=== PATIENT | male | born 1985 | race Caucasian/White ===

== ENCOUNTER 2017-01-07 21:04 | Emergency (ER) | payer SELFPAY ==
[~2017-01-07] VITALS: Ht 177.8 cm; Wt 85.0 kg
[~2017-01-07 21:04] MED LIST: IBUP-238 PO; LORT5TAB PO; Z.0.NO CURRENT MEDS
[2017-01-07 21:06] VITALS: BP 158/104; PULSE 98; RESP 15; TEMP 99; O2SAT 98
--- NOTE | 2017-01-07 21:48 | PD ---
Physical Exam Time Seen by Provider: 21:45 Narrative 31 y/o male here for evaluation of nausea, vomiting for 2 days. He is also complaining about decreased density of hair on the right lower leg which he just happened to notice as well. Vital signs reviewed. Seen at triage desk. Awaiting bed placement. Data Data Last Documented VS Vital Signs Date Time Temp Pulse Resp B/P Pulse Ox O2 Delivery O2 Flow Rate FiO2 01/07/17 21:06 99.0 98 15 158/104 98 Room Air [facility] Medical Record Reviewed: Yes Supervised Visit with BRINDA: Fredrick Rodriguez Jan 07, 2017 21:47
[2017-01-07] MEDS ORDERED: REGL10TA5 PO (22:11)
--- NOTE | 2017-01-07 22:12 | PD ---
HPI Chief Complaint: GI Complaint Time Seen by Provider: 21:54 Travel History International Travel<30 days: No Contact w/Intl Traveler<30days: No Traveled to known affect area: No History of Present Illness HPI 41-year-old male reports nausea and vomiting every day for several months. Any oral intake tends to cause vomiting. He reports weight loss. He also complains of a right inguinal hernia which has gradually worsened over the last few months. It is reducible. No fever. Pt states he drinks alcohol three times a week. Today prior to ER arrival he drank multiple shots of alcohol. PFSH Past Medical History Diminished Hearing: No Inguinal Hernia: Yes Tetanus Vaccination: > 5 Years Influenza Vaccination: No Past Surgical History Surgical History: No Previous Surgery Social History Alcohol Use: Yes (SOCIAL A LOT) Tobacco Use: No Substance Use: No Allergies-Medications (Allergen,Severity, Reaction): Coded Allergies: Clindamycin (Verified Allergy, Severe, RASH, 01/07/17) Sulfa (Verified Allergy, Severe, Rash, 01/07/17) Reported Meds & Prescriptions Reported Meds & Active Scripts Active Reglan (Metoclopramide HCl) 10 Mg Tab 10 Mg PO TIDAC PRN Review of Systems Except as stated in HPI: all other systems reviewed are Neg Physical Exam Narrative GENERAL: 31 yo M, WNWD, NAD SKIN: Warm and dry. HEAD: Atraumatic. Normocephalic. EYES: Pupils equal and round. No scleral icterus. No injection or drainage. ENT: No nasal bleeding or discharge. Mucous membranes pink and moist. NECK: Trachea midline. No JVD. CARDIOVASCULAR: Regular rate and rhythm. RESPIRATORY: No accessory muscle use. Clear to auscultation. Breath sounds equal bilaterally. GASTROINTESTINAL: Abdomen soft, non-tender, nondistended. Hepatic and splenic margins not palpable. MUSCULOSKELETAL: Extremities without clubbing, cyanosis, or edema. No obvious deformities. NEUROLOGICAL: Awake and alert. No obvious cranial nerve deficits. Motor grossly within normal limits. Five out of 5 muscle strength in the arms and legs. Normal speech. PSYCHIATRIC: Appropriate mood and affect; insight and judgment normal. Data Data Last Documented VS Vital Signs Date Time Temp Pulse Resp B/P Pulse Ox O2 Delivery O2 Flow Rate FiO2 01/07/17 22:03 16 01/07/17 21:06 99.0 98 158/104 98 Room Air VS reviewed MDM Medical Decision Making Medical Screen Exam Complete: Yes Emergency Medical Condition: Yes Differential Diagnosis Constipation, Gastritis, Acute Cholecystitis, Biliary Colic, Pancreatitis, FLORES , Hepatitis, Bowel Obstruction, Cystitis, Mesenteric Ischemia, AAA, Appendicitis , Renal Stone/Hydronephrosis, GERD, perforated viscous Narrative Course R inguinal hernia is reducible. Follow up instructions reviewed. Reglan script. Pt advised to avoid drinking alcohol and demonstrates understanding and agreement to stop drinking. Diagnosis Primary Impression: Vomiting Qualified Code: R11.2 - Non-intractable vomiting with nausea, unspecified vomiting type Additional Impression: Inguinal hernia Qualified Code: K40.90 - Unilateral inguinal hernia without obstruction or gangrene, recurrence not specified Referrals: Patient Assistance Program 1 day Additional Instructions: You have a choice when it comes to health care, and we are glad that you chose [facility] Hopefully, we have met your expectations on today's visit. You are welcome to return to [facility] at any time, as we are committed to meeting the health care needs of our community. Med/Other Pt SpecificInfo: Prescription(s) given Scripts Metoclopramide (Reglan)10 Mg Tab10 Mg PO TIDAC PRN (NAUSEA OR VOMITING) #30 TAB Ref 0 Prov:Rj Harden MD 01/07/17 Disposition: 01 DISCHARGE HOME Condition: Stable Rj Harden MD Jan 07, 2017 22:12
== END 2017-01-07 22:21 | disposition home or self-care (01) ==
LOC: NEPD 21:04
DX: R11.2 Nausea with vomiting, unspecified (principal); K40.90 Unilateral inguinal hernia, without obstruction or gangrene, not specified as recurrent; Z79.899 Other long term (current) drug therapy; Z88.2 Allergy status to sulfonamides; Z88.8 Allergy status to other drugs, medicaments and biological substances
CPT/HCPCS: 99283

== ENCOUNTER 2017-06-03 21:52 | Emergency (ER) | payer MEDICAID ==
[~2017-06-03 21:52] MED LIST changes: -IBUP-238 PO; -LORT5TAB PO; +REGL10TA5 PO; -Z.0.NO CURRENT MEDS
[2017-06-03 22:01] VITALS: BP 135/85; PULSE 96; RESP 20; TEMP 98.7; O2SAT 97
--- NOTE | 2017-06-03 22:43 | PD ---
HPI Chief Complaint: GI Complaint Time Seen by Provider: 22:07 Travel History International Travel<30 days: No Contact w/Intl Traveler<30days: No Traveled to known affect area: No History of Present Illness HPI Patient is a 32-year-old male whose kid has been vomiting all day. Apparently all went to [facility] yesterday and everyone who is at that birthday democrat ended up vomiting patient started vomiting early this morning had to call in sick to work. He took his child to the doctor who gave the child a medication which has helped the child stopped vomiting. He was told the child had no emergency. Patient now is in the ER complaining of nausea vomiting multiple episodes she was so much retching that his stomach was hurting muscles were hurting. In the ER he denies any actual abdomen pain at this time patient has no surgical past medical history he has only a hernia which she is scheduled to eventually have repaired. He did not take anything to alleviate the symptoms of vomiting. He has not seen another doctor. PFSH Past Medical History Diminished Hearing: No Inguinal Hernia: Yes Tetanus Vaccination: > 5 Years Influenza Vaccination: No Past Surgical History Other Surgery: Yes (left knee, right wrist ) Social History Alcohol Use: No Tobacco Use: No Substance Use: No Allergies-Medications (Allergen,Severity, Reaction): Coded Allergies: Sulfa (Sulfonamide Antibiotics) (Unverified Allergy, Severe, Rash, ) clindamycin (Unverified Allergy, Severe, RASH, 06/03/17) Reported Meds & Prescriptions Reported Meds & Active Scripts Active Zofran Odt (Ondansetron Odt) 4 Mg Tab 4 Mg SL Q6HR PRN Review of Systems Except as stated in HPI: all other systems reviewed are Neg Gastrointestinal: Positive: Nausea, Vomiting Physical Exam Narrative GENERAL: non toxic no active vomiting SKIN: Warm and dry. HEAD: Atraumatic. Normocephalic. EYES: Pupils equal and round. No scleral icterus. No injection or drainage. ENT: No nasal bleeding or discharge. Mucous membranes pink and moist. NECK: Trachea midline. No JVD. CARDIOVASCULAR: Regular rate and rhythm. RESPIRATORY: No accessory muscle use. Clear to auscultation. Breath sounds equal bilaterally. GASTROINTESTINAL: Abdomen soft, non-tender, nondistended. Hepatic and splenic margins not palpable. MUSCULOSKELETAL: Extremities without clubbing, cyanosis, or edema. No obvious deformities. NEUROLOGICAL: Awake and alert. No obvious cranial nerve deficits. Motor grossly within normal limits. Five out of 5 muscle strength in the arms and legs. Normal speech. PSYCHIATRIC: Appropriate mood and affect; insight and judgment normal. Data Data Last Documented VS Vital Signs Date Time Temp Pulse Resp B/P (MAP) Pulse Ox O2 Delivery O2 Flow Rate FiO2 06/03/17 23:34 06/03/17 23:34 98.7 85 16 98 Room Air Orders Orders Ondansetron Odt (Zofran Odt) (06/03/17 22:45) Ed Discharge Order (06/03/17 23:25) [facility] Medical Decision Making Medical Screen Exam Complete: Yes Emergency Medical Condition: Yes Differential Diagnosis viral gastroenteritis vs food bourne toxin vs SBO other Narrative Course Zofran ODT and tolerate PO Rx for Zofran close outpt follow up Diagnosis Primary Impression: Gastroenteritis Patient Instructions: Gastroenteritis (ED), General Instructions Scripts Ondansetron Odt (Zofran Odt) 4 Mg Tab 4 MG SL Q6HR Y for Nausea/Vomiting, #15 TAB 0 Refills Prov: Dandre Connell MD 06/03/17 Disposition: 01 DISCHARGE HOME Condition: Critical Dandre Connell MD Jun 03, 2017 22:43
[2017-06-03] MEDS ORDERED: ONDANSETRON ODT 4 MG TAB PO ONE (22:45)
[2017-06-03] MEDS ORDERED: ZOFR4TAB3 SL (23:00)
[2017-06-03 23:34] VITALS: BP 134/75; PULSE 85; RESP 16; TEMP 98.7; O2SAT 98
== END 2017-06-03 23:36 | disposition home or self-care (01) ==
LOC: PHED 21:52
DX: K52.9 Noninfective gastroenteritis and colitis, unspecified (principal)
CPT/HCPCS: 99283

== ENCOUNTER 2017-06-23 04:42 | Emergency (ER) | payer MEDICAID ==
[~2017-06-23] VITALS: Ht 180.3 cm; Wt 91.0 kg
[~2017-06-23 04:42] MED LIST changes: -REGL10TA5 PO; +ZOFR4TAB3 SL
[2017-06-23 04:44] VITALS: BP 152/107; PULSE 98; RESP 16; TEMP 98.1; O2SAT 98
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
[2017-06-23] MEDS ORDERED: AUGM875T3 PO (08:49)
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
[2017-06-23] MEDS ORDERED: NORC5TAB PO (08:51)
== END 2017-06-23 09:29 | disposition home or self-care (01) ==
LOC: NEPK 04:42
DX: S02.609A Fracture of mandible, unspecified, initial encounter for closed fracture (principal); Y33.XXXA Other specified events, undetermined intent, initial encounter
CPT/HCPCS: 70486; 99284

== ENCOUNTER 2017-06-26 16:57 | Emergency (ER) | payer MEDICAID ==
[~2017-06-26] VITALS: Ht 180.3 cm; Wt 90.0 kg
[~2017-06-26 16:57] MED LIST changes: +AUGM875T3 PO; +NORC5TAB PO; -ZOFR4TAB3 SL
[2017-06-26 16:59] VITALS: BP 154/109; PULSE 111; RESP 16; TEMP 99.1; O2SAT 96
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
[2017-06-26] MEDS ORDERED: KETOROLAC TROMETHAMINE 30 MG/ML (IVP) VIAL IV PUSH ONE (17:45)
[2017-06-26] MEDS ORDERED: SODIUM CHLOR 0.9% 1000 ML INJ 1,000 ML IV ONE (17:45)
[2017-06-26 18:11] LABS: HEMATOCRIT 48.8 % (39.0-51.0); HEMOGLOBIN 17.7 GM/DL (13.0-17.0); MEAN CELL VOLUME 90.5 FL (80.0-100.0); MEAN CORPUSCULAR HEMOGLOBIN 32.8 PG (27.0-34.0); MEAN PLATELET VOLUME 8.1 FL (7.0-11.0); PLATELET COUNT 170 TH/MM3 (150-450); RED BLOOD COUNT 5.39 MIL/MM3 (4.50-5.90); RED CELL DISTRIBUTION WIDTH 12.3 % (11.6-17.2); WHITE BLOOD COUNT 6.5 TH/MM3 (4.0-11.0)
[2017-06-26 18:20] LABS: MEAN CORPUSCULAR HGB CONC 36.2 % (32.0-36.0)
[2017-06-26 18:36] LABS: BICARBONATE 31.6 MEQ/L (21.0-32.0); CALCIUM 9.2 MG/DL (8.5-10.1); CREATININE 1.12 MG/DL (0.60-1.30)
[2017-06-26 19:09] LABS: BASOPHILS 1 % (0-2); LYMPHOCYTES 24 % (9-44); MONOCYTES 5 % (0-8); NEUTROPHIL # MANUAL DIFF 4.4 TH/MM3 (1.8-7.7); POLYS (SEG NEUTROPHILS) 68 % (16-70)
[2017-06-26] MEDS ORDERED: IBUP100S11 PO (19:25)
[2017-06-26] MEDS ORDERED: HYDR1SOL3 PO (19:25)
[2017-06-26] MEDS ORDERED: AUGM250S2 PO (19:25)
== END 2017-06-26 19:50 | disposition home or self-care (01) ==
LOC: NEPC 16:57
DX: S02.609D Fracture of mandible, unspecified, subsequent encounter for fracture with routine healing (principal); Z88.2 Allergy status to sulfonamides; Z88.0 Allergy status to penicillin; Z79.1 Long term (current) use of non-steroidal anti-inflammatories (NSAID); Z79.891 Long term (current) use of opiate analgesic; X58.XXXD Exposure to other specified factors, subsequent encounter
CPT/HCPCS: 80048; 85007; 85027; 96361; 96374; 99284; J1885; J7030

== ENCOUNTER 2017-07-22 10:18 | Emergency (ER) | payer MEDICAID ==
[~2017-07-22] VITALS: Ht 177.8 cm; Wt 70.0 kg
[~2017-07-22 10:18] MED LIST changes: +AUGM250S2 PO; +HYDR1SOL3 PO; +IBUP100S11 PO
[2017-07-22 10:21] VITALS: BP 152/98; PULSE 113; RESP 16; TEMP 98.5; O2SAT 95
[2017-07-22] MEDS ORDERED: ZOFR4TAB PO (11:08)
--- NOTE | 2017-07-22 11:09 | PD ---
HPI Chief Complaint: Complaint Time Seen by Provider: 10:27 Travel History International Travel<30 days: No Contact w/Intl Traveler<30days: No Traveled to known affect area: No History of Present Illness HPI This is a 32-year-old male came here for lower abdominal pain. He states that he has a hernia that has been there for 1 year. He has been complaining of nausea and vomiting periodically for the last few weeks. He has not noticed the hernia getting bigger or red. Patient has lost a few pounds over the last year due to her nausea and vomiting. He says that he tried to see surgeon for the operation but he was unable to get an appointment due to insurance issues. Lower abdominal pain is 3 out of 10, comes and goes, no radiation, no fever no chills, no night sweats, associated with nausea and vomiting that comes and goes as well. Patient is currently not working but he used to workout but he stopped due to the hernia pain. PFSH Past Medical History Diminished Hearing: No Inguinal Hernia: Yes Tetanus Vaccination: > 5 Years Influenza Vaccination: No Past Surgical History Other Surgery: Yes Social History Alcohol Use: Yes (occasionally) Tobacco Use: No Substance Use: No Allergies-Medications (Allergen,Severity, Reaction): Coded Allergies: Sulfa (Sulfonamide Antibiotics) (Unverified Allergy, Severe, Rash, 07/22/17) clindamycin (Unverified Allergy, Severe, RASH, 07/22/17) Reported Meds & Prescriptions Reported Meds & Active Scripts Active Zofran (Ondansetron HCl) 4 Mg Tab 4 Mg PO Q12HR PRN 5 Days Review of Systems General / Constitutional: Positive: Weight Loss Eyes: No: Visual changes Gastrointestinal: Positive: Nausea, Vomiting Physical Exam Narrative GENERAL: No acute distress. SKIN: Focused skin assessment warm/dry. HEAD: Atraumatic. Normocephalic. EYES: Pupils equal and round. No scleral icterus. No injection or drainage. ENT: No nasal bleeding or discharge. Mucous membranes pink and moist. NECK: Trachea midline. No JVD. CARDIOVASCULAR: Regular rate and rhythm. No murmur appreciated. RESPIRATORY: No accessory muscle use. Clear to auscultation. Breath sounds equal bilaterally. GASTROINTESTINAL: Right inguinal hernia, no local tenderness, reducible, no redness, no testicular or redness, Abdomen soft, non-tender, nondistended. MUSCULOSKELETAL: No obvious deformities. No clubbing. No cyanosis. No edema. NEUROLOGICAL: Awake and alert. No obvious cranial nerve deficits. Motor grossly within normal limits. Normal speech. PSYCHIATRIC: Appropriate mood and affect; insight and judgment normal. Data Data Last Documented VS Vital Signs Date Time Temp Pulse Resp B/P (MAP) Pulse Ox O2 Delivery O2 Flow Rate FiO2 07/22/17 10:21 98.5 113 16 152/98 (116) 95 Orders Orders Ed Discharge Order (07/22/17 11:14) MDM Medical Decision Making Medical Screen Exam Complete: Yes Emergency Medical Condition: Yes Differential Diagnosis Reducible Inguinal hernia. Enlarged Lymph nodes. Gastroenteritis. Narrative Course Pleasant 32-year-old male with history of right inguinal hernia for the last year. He has been trying to get an appointment with a surgeon to take care of it but was unsuccessful to do so. Hernia is reducible no signs of incarceration. He will eventually need elective surgery because of hernia affecting his quality of life. Explained to him that he needs to do outpatient appointment with surgeon and I given the phone number and the address of [facility] for Medicaid. Patient is stable to be discharged and to follow- up with primary care and surgeon. I explained to him to look for signs and symptoms of incarceration and to return to the ER immediately if those symptoms ever occur. Diagnosis Primary Impression: Inguinal hernia Qualified Codes: K40.90 - Unilateral inguinal hernia, without obstruction or gangrene, not specified as recurrent Additional Impression: Vomiting Qualified Codes: R11.2 - Nausea with vomiting, unspecified Referrals: [facility] Patient Instructions: General Instructions, Inguinal Hernia (DC), Inguinal Hernia (ED) Departure Forms: Tests/Procedures, Work Release Enter return to work date: Jul 23, 2017 Special Instructions: please excuse from work on 07/22/17 Additional Instructions: Return to ER if any redness or pain or swelling of the hernia. Med/Other Pt SpecificInfo: Prescription(s) given Scripts Ondansetron (Zofran) 4 Mg Tab 4 MG PO Q12HR Y for NAUSEA OR VOMITING for 5 Days, TAB 10 Refills Prov: Louie Saba MD 07/22/17 Disposition: 01 DISCHARGE HOME Condition: Stable Louie Saba MD Jul 22, 2017 11:09
== END 2017-07-22 11:35 | disposition home or self-care (01) ==
LOC: NEPD 10:18
DX: K40.90 Unilateral inguinal hernia, without obstruction or gangrene, not specified as recurrent (principal); R11.2 Nausea with vomiting, unspecified
CPT/HCPCS: 99283

== ENCOUNTER 2018-03-14 13:30 | Inpatient (IN) ==
[2018-03-14] MEDS ORDERED: Sod Chloride 0.9% Inj 1,000 ML IV.SIG ONE (15:41)
[2018-03-14] MEDS ORDERED: Morphine Inj 4 MG/ML Vial IV.PUSH ONE (15:41)
--- NOTE | 2018-03-14 15:47 | ED ---
HPI General Chief Complaint: Abdominal Pain Stated Complaint: abd pain Time Seen by Provider: 03/14/18 15:41 Source: patient Mode of arrival: ambulatory Limitations: no limitations History of Present Illness HPI narrative: 32-year-old male patient with history of herniorrhaphy on the right side, presents to the ER today for 2 days history of increased abdominal pain, currently a 7 out of 10, nausea, feeling like his abdomen is bloated. He denies any diarrhea, fevers, or other symptoms. Related Data Home Medications Medication Instructions Recorded Confirmed No Known Home Medications 03/14/18 03/14/18 Allergies Allergy/AdvReac Type Severity Reaction Status Date / Time clindamycin Allergy Severe RASH Unverified 07/22/17 10:41 Sulfa (Sulfonamide Allergy Severe Rash Unverified 07/22/17 10:41 Antibiotics) Review of Systems ROS: all other systems reviewed are negative PMFSH History History Provided By: Patient Surgical History Surgical History History of herniorrhaphy (Acute) Social History Social History Substance History: No History of Abuse Second Hand Smoke Exposure: No Smoking Status: Former smoker Tobacco Type: Cigarettes How Often Do You Have a Drink Containing Alcohol: Monthly or less Recent Travel in [place] within the Last 8 Weeks: No Recent Out of Country Travel within the Last 8 Weeks: No Exam Narrative Exam Narrative: GENERAL: Well-developed young male patient currently in moderate distress. Awake and oriented x3. SKIN: Focused skin assessment warm/dry. HEAD: Atraumatic. Normocephalic. EYES: Pupils equal and round. No scleral icterus. No injection or drainage. ENT: No nasal bleeding or discharge. Mucous membranes pink and moist. NECK: Trachea midline. No JVD. CARDIOVASCULAR: Regular rate and rhythm. No murmur appreciated. RESPIRATORY: No accessory muscle use. Clear to auscultation. Breath sounds equal bilaterally. GASTROINTESTINAL: Abdomen Is mildly distended, Tender to palpation in the upper abdomen, Without guarding or rebound. Hepatic and splenic margins not palpable. MUSCULOSKELETAL: No obvious deformities. No clubbing. No cyanosis. No edema. NEUROLOGICAL: Awake and alert. No obvious cranial nerve deficits. Motor grossly within normal limits. Normal speech. PSYCHIATRIC: Appropriate mood and affect; insight and judgment normal. Course Initial Documented Vital Signs Temperature 98.3 F 03/14/18 13:43 Pulse Rate 111 H 03/14/18 13:43 Respiratory Rate 18 03/14/18 13:43 Blood Pressure 143/89 H 03/14/18 13:43 Pulse Oximetry 98 03/14/18 13:43 Last Documented Vital Signs Temperature 98.3 F 03/14/18 13:43 Pulse Rate 71 03/14/18 17:59 Respiratory Rate 18 03/14/18 17:59 Blood Pressure 120/72 03/14/18 17:59 Pulse Oximetry 100 03/14/18 17:59 Medical Decision Making MDM Narrative Medical decision making narrative: Labs show a white count of 25. CAT scan is showing acute appendicitis. Case is discussed with Dr. Dave for admission. He states that he will come to see the patient, wants me to get the patient started on Zosyn. Medical Screen Exam Complete: Yes Emergency Medical Condition: Yes Differential Diagnosis Differential Diagnosis: Obstruction versus gastroenteritis versus cholecystitis versus other acute intra-abdominal processes Lab Data Lab results reviewed: Yes I reviewed the patient's lab results. Result diagrams: 03/14/18 13:50 03/14/18 13:50 Lab Results 03/14/18 03/14/18 03/14/18 Range/Units 13:50 13:50 18:00 WBC 24.5 H (4.0-11.0) th/mm3 RBC 5.13 (4.50-5.90) mil/mm3 Hgb 16.2 (13.0-17.0) gm/dL Hct 47.3 (39.0-51.0) % MCV 92.0 (80.0-100.0) fL MCH 31.5 (27.0-34.0) pg MCHC 34.2 (32.0-36.0) % RDW 13.2 (11.6-17.2) % Plt Count 234 (150-450) th/mm3 MPV 10.0 (7.0-11.0) fL Neut % (Auto) 91.8 H (16.0-70.0) % Lymph % (Auto) 3.4 L (9.0-44.0) % [place] % (Auto) 4.6 (0.0-8.0) % Eos % (Auto) 0.0 (0.0-4.0) % Baso % (Auto) 0.2 (0.0-2.0) % Neut # (Auto) 22.4 H (1.8-7.7) th/mm3 Lymph # (Auto) 0.8 L (1.0-4.8) th/mm3 [place] # (Auto) 1.1 H (0.0-0.9) th/mm3 Eos # (Auto) 0.0 (0.0-0.4) th/mm3 Baso # (Auto) 0.1 (0.0-0.2) th/mm3 WBC Differential . Differential Comment Auto diff final Sodium 133 L (136-145) meq/L Potassium 4.1 (3.5-5.1) meq/L Chloride 93 L (98-107) meq/L Carbon Dioxide 29.5 (21.0-32.0) meq/L Anion Gap 11 (5-15) meq/L BUN 14 (7-18) mg/dL Creatinine 1.31 H (0.60-1.30) mg/dL Estimated GFR 64 L (>89) mL/min Random Glucose 108 H (74-106) mg/dL Calcium 9.3 (8.5-10.1) mg/dL Total Bilirubin 2.4 H (0.2-1.0) mg/dL AST 61 H (15-37) U/L ALT 110 H (12-78) U/L Alkaline Phosphatase 75 (45-117) U/L Total Protein 8.5 H (6.4-8.2) g/dL Albumin 4.1 (3.4-5.0) g/dL Lipase 65 L (73-393) U/L Urine Color Yellow (Yellw/Straw) Urine Clarity Clear (Clear) Urine pH 6.0 (5.0-8.5) Ur Specific [place] 1.009 (1.002-1.035) Urine Protein Negative (Neg-Trace) mg/dL Urine Glucose (UA) Negative (Negative) mg/dL Urine Ketones Negative (Negative) mg/dL Urine Occult Blood Negative (Negative) Urine Nitrate Negative (Negative) Urine Bilirubin Negative (Negative) Urine Urobilinogen Less than 2 (Less than 2) mg/dL Ur Leukocyte Esterase Negative (Negative) Urine RBC Less than 1 (0-3) /hpf Urine WBC 2 (0-5) /hpf Ur Squamous Epith Cells <1 (0-5) /hpf Urine Bacteria Occasional H (None) /hpf Hyaline Casts 4 (0-3) /lpf Micro UA Comment Culture not ind Ur Microscopic Review Not Reportable Urine Culture Comments Culture not ind Imaging Data Attestation: I personally reviewed and interpreted this imaging study as follows : Radiologist's impression: Abdomen/Pelvis CT 03/14/18 15:41 CONCLUSION: 1. Acute appendicitis without abscess or rupture. 2. Enteritis and colitis, most severely involving the ileum and of concern for underlying Crohn's disease. 3. Enlarged and fatty infiltrated liver. 4. Tiny nonobstructing stone of the left kidney. Discharge Plan Discharge Disposition Patient Disposition: 32 Still Patient Discharge Condition Condition: Stable Discharge Details Anticipated Discharge Date: 03/14/18 Diagnosis: Appendicitis Physicians Team ED Provider: Eliza Forrester Primary Care Provider: Primary Care Toya Harris Rxs /Orders / Referrals /Forms Prescriptions: No Action No Known Home Medications RF: 0 Discharge Interventions Interventions: Vital Signs Last Done: 03/14/18 17:59 Status ED Status: With Doctor
[2018-03-14 16:29] LABS: Baso # (Auto) 0.1 th/mm3 (0.0-0.2); Baso % (Auto) 0.2 % (0.0-2.0); Hematocrit 47.3 % (39.0-51.0); Hemoglobin 16.2 gm/dL (13.0-17.0); Lymph # (Auto) 0.8 th/mm3 (1.0-4.8); Lymph % (Auto) 3.4 % (9.0-44.0); Mean Corpuscular HGB Conc 34.2 % (32.0-36.0); Mean Corpuscular Hemoglobin 31.5 pg (27.0-34.0); Mono # (Auto) 1.1 th/mm3 (0.0-0.9); Mono % (Auto) 4.6 % (0.0-8.0); Neut # (Auto) 22.4 th/mm3 (1.8-7.7); Neut % (Auto) 91.8 % (16.0-70.0); Platelet Count 234 th/mm3 (150-450); Red Blood Count 5.13 mil/mm3 (4.50-5.90); Red Cell Distribution Width 13.2 % (11.6-17.2); White Blood Count 24.5 th/mm3 (4.0-11.0)
[2018-03-14 16:46] LABS: Alanine Aminotransferase 110 U/L (12-78); Albumin 4.1 g/dL (3.4-5.0); Anion Gap 11 meq/L (5-15); Aspartate Aminotransferase 61 U/L (15-37); Blood Urea Nitrogen 14 mg/dL (7-18); Calcium 9.3 mg/dL (8.5-10.1); Carbon Dioxide 29.5 meq/L (21.0-32.0); Chloride 93 meq/L (98-107); Glomerular Filtration Rate 64 mL/min (>89); Glucose,Random 108 mg/dL (74-106); Lipase 65 U/L (73-393); Potassium 4.1 meq/L (3.5-5.1); Sodium 133 meq/L (136-145)
[2018-03-14 16:48] LABS: Alkaline Phosphatase 75 U/L (45-117); Total Protein 8.5 g/dL (6.4-8.2)
[2018-03-14 18:36] LABS: Bacteria,Urine Occasional /hpf; Bilirubin,Urine Negative (Negative); Clarity,Urine Clear (Clear); Color,Urine Yellow (Yellw/Straw); Glucose,Urine (UA) Negative (Negative); Hyaline Casts,Urine 4 /lpf (0-3); Leukocyte Esterase,Urine Negative (Negative); Nitrite,Urine Negative (Negative); Specific Gravity,Urine 1.009 (1.002-1.035); Squamous Epithelial Cell,Urine <1 /hpf (0-5)
--- NOTE | 2018-03-14 18:44 | CT ---
EXAM DATE: 03/14/2018 5:33 PM EDT AGE/SEX: 32 years / Male INDICATIONS: Nausea, vomiting and right lower abdomen pain for two days. CLINICAL DATA: This is the patient's initial encounter. Patient reports that signs and symptoms have been present for 2 days and indicates a pain score of 9/10. MEDICAL/SURGICAL HISTORY: None. None. ORAL CONTRAST: No oral contrast ingested. RADIATION DOSE: 15.47 CTDI (mGy) COMPARISON: No prior exams available for comparison. TECHNIQUE: Multiple contiguous axial images were obtained through the abdomen and pelvis following b olus infusion of 97 ml Omnipaque 350 (iohexol) nonionic water-soluble contrast as a single exam dos e. No oral contrast ingested. Using automated exposure control and adjustment of the mA and/or kV ac cording to patient size, radiation dose was kept as low as reasonably achievable to obtain optimal di agnostic quality images. DICOM format image data is available electronically for review and comparis on. FINDINGS: Thick walled appendix with mucosal enhancement and periappendiceal fat stranding noted. There is part ly calcific debris in the cecum near the base of the appendix. Extremely indurated and narrow small bowel present, especially the ileum and including the terminal i leum. These findings are beyond those expected secondary to acute appendicitis and underlying Crohn's disease is suspected. Some colonic involvement is also seen, mostly the sigmoid. Bowel gas pattern i s nonobstructive. No free air or abscess demonstrated. There is small free fluid in the pelvic cavity . Mild bibasilar atelectasis. No acute bony abnormality demonstrated. Liver is mild fatty infiltrated. Spleen, pancreas and adrenal glands are within normal limits. 2 mm n onobstructing stone seen mid zone of the left kidney. CONCLUSION: 1. Acute appendicitis without abscess or rupture. 2. Enteritis and colitis, most severely involving the ileum and of concern for underlying Crohn's di sease. 3. Enlarged and fatty infiltrated liver. 4. Tiny nonobstructing stone of the left kidney. Electronically signed by: Bharat Hernandez MD 03/14/2018 6:43 PM EDT
[2018-03-14] MEDS ORDERED: Piperacil/Tazo 3.375 GM Premix 50 ML IV.SIG ONE (19:00)
[2018-03-14] MEDS ORDERED: Bupivacaine/Epinephrine Inj 0.25% 50 ML Vial ONE (19:42)
[2018-03-14] MEDS ORDERED: Succinylcholine Inj 100 MG/5 ML Syringe IV.PUSH ONE (20:00)
[2018-03-14] MEDS ORDERED: Lidocaine PF 1% Inj 5 ML Syringe OTHER ONE (20:00)
--- NOTE | 2018-03-14 20:17 | P.HP ---
History of Present Illness Primary Care Physician: No Primary Care Physician History of Present Illness: Patient is a 32-year-old male who began to have increased abdominal pain over the last 2 days. He has nausea but no emesis. He denies any change in bowel habits or fevers. - Diagnosis (1) Enteritis (2) Appendicitis Review of Systems All other systems reviewed negative except as stated in HPI PMFSH - History History Provided By: Patient - Medical History Medical History: Medical History (Last Updated 03/14/18 @ 20:09 by Silverio Dave MD) Fracture, mandible - Surgical History Surgical History: Surgical History (Last Reviewed 03/15/18 @ 15:36 by Angela Brown MD) History of herniorrhaphy - Family History Family History: Family History (Last Updated 03/15/18 @ 16:28 by Yfn Amaya MD) Mother Healthy adult Father Diabetes - Tobacco History Second Hand Smoke Exposure: No Tobacco Use In Past 30 Days: No Smoking Status: Former smoker Tobacco Type: Cigarettes - Alcohol History How Often Do You Have a Drink Containing Alcohol: Monthly or less - Substance Use History Substance History: No History of Abuse - Travel History Recent Travel in the [place] Within the Last 8 Weeks: No Recent Travel Out of the Country Within the Last 8 Weeks: No - Immunization History Tetanus Immunization: Unsure Medications and Allergies Active Medications: Active Medications Sodium Chloride (Ns Flush) 2 ml IV.FLUSH PRN PRN PRN Reason: FLUSH AFTER USING IV ACCESS Last Admin: 03/14/18 15:55 Dose: 2 ml Allergies Allergy/AdvReac Type Severity Reaction Status Date / Time clindamycin Allergy Severe RASH Unverified 07/22/17 10:41 Sulfa (Sulfonamide Allergy Severe Rash Unverified 07/22/17 10:41 Antibiotics) Home Medications Medication Instructions Recorded Confirmed Type No Known Home Medications 03/14/18 03/14/18 History Exam Vital signs: Vital Signs 03/14/18 13:43 03/14/18 17:59 03/14/18 19:18 Temperature 98.3 F Pulse Rate 111 H 71 104 H Respiratory Rate 18 18 20 Blood Pressure 143/89 H 120/72 123/58 L Pulse Oximetry 98 100 96 Intake & Output 03/14/18 03/14/18 03/15/18 06:59 18:59 06:59 Intake Total 1000 / 1000 50 / 50 Balance 1000 / 1000 50 / 50 Weight 95.254 kg Intake: IV 1000 / 1000 50 / 50 Zosyn 3.375 GM Premix 50 ML @ 50 / 50 100 mls/hr IV.SIG ONCE ONE Rx#: [id number] NS Inj 1,000 ML @ Wide Open IV. 1000 / 1000 SIG BOLUS ONE Rx#:[id number] - Constitutional mild distress - Routine HEENT Exam Head: Present: normocephalic, atraumatic - Routine Respiratory Exam Present: CTA bilaterally - Routine Cardiovascular Exam Present: RRR - Routine Abdominal Exam Present: soft, tenderness (Right lower quadrant), guarding Results - Labs CBC & Chem 7: 03/18/18 03:55 03/16/18 06:15 Labs: Laboratory Results - last 24 hr 03/14/18 03/14/18 03/14/18 13:50 13:50 18:00 WBC 24.5 H RBC 5.13 Hgb 16.2 Hct 47.3 MCV 92.0 MCH 31.5 MCHC 34.2 RDW 13.2 Plt Count 234 MPV 10.0 Neut % (Auto) 91.8 H Lymph % (Auto) 3.4 L [place] % (Auto) 4.6 Eos % (Auto) 0.0 Baso % (Auto) 0.2 Neut # (Auto) 22.4 H Lymph # (Auto) 0.8 L [place] # (Auto) 1.1 H Eos # (Auto) 0.0 Baso # (Auto) 0.1 WBC Differential . Differential Comment Auto diff final Sodium 133 L Potassium 4.1 Chloride 93 L Carbon Dioxide 29.5 Anion Gap 11 BUN 14 Creatinine 1.31 H Estimated GFR 64 L Random Glucose 108 H Calcium 9.3 Total Bilirubin 2.4 H AST 61 H ALT 110 H Alkaline Phosphatase 75 Total Protein 8.5 H Albumin 4.1 Lipase 65 L Urine Color Yellow Urine Clarity Clear Urine pH 6.0 Ur Specific [place] 1.009 Urine Protein Negative Urine Glucose (UA) Negative Urine Ketones Negative Urine Occult Blood Negative Urine Nitrate Negative Urine Bilirubin Negative Urine Urobilinogen Less than 2 Ur Leukocyte Esterase Negative Urine RBC Less than 1 Urine WBC 2 Ur Squamous Epith Cells <1 Urine Bacteria Occasional H Hyaline Casts 4 Micro UA Comment Culture not ind Ur Microscopic Review Not Reportable Urine Culture Comments Culture not ind - Imaging Impressions Abdomen/Pelvis CT 03/14/18 15:41 CONCLUSION: 1. Acute appendicitis without abscess or rupture. 2. Enteritis and colitis, most severely involving the ileum and of concern for underlying Crohn's disease. 3. Enlarged and fatty infiltrated liver. 4. Tiny nonobstructing stone of the left kidney. Caprini VTE Risk Assessment Caprini VTE Risk Assessment: No/Low Risk (score <= 1) Caprini Risk Assessment Model: Point Value = 1 Point Value = 2 Point Value = 3 Point Value = 5 Age 41-60 Minor surgery BMI > 25 kg/m2 Swollen legs Varicose veins or History of unexplained or recurrent spontaneous Oral contraceptives or hormone replacement Sepsis (< 1 month) Serious lung disease, including pneumonia (< 1 month) Abnormal pulmonary function Acute myocardial infarction Congestive heart failure (< 1 month) History of inflammatory bowel disease Medical patient at bed rest Age 61-74 Arthroscopic surgery Major open surgery (> 45 min) Laparoscopic surgery (> 45 min) Malignancy Confined to bed (> 72 hours) Immobilizing plaster cast Central venous access Age >= 75 History of VTE Family history of VTE Factor V Leiden Prothrombin [id number] Lupus anticoagulant Anticardiolipin antibodies Elevated serum homocysteine Heparin-induced thrombocytopenia Other congenital or acquired thrombophilia Stroke (< 1 month) Elective arthroplasty Hip, pelvis, or leg fracture Acute spinal cord injury (< 1 month) Prophylaxis Regimen: Total Risk Factor Score Risk Level Prophylaxis Regimen 0-1 Low Early ambulation 2 Moderate Order ONE of the following: *Sequential Compression Device (SCD) *Heparin 5000 units SQ BID 3-4 Higher Order ONE of the following medications: *Heparin 5000 units SQ TID *Enoxaparin/Lovenox 40 mg SQ daily (WT < 150 kg, CrCl > 30 mL/min) *Enoxaparin/Lovenox 30 mg SQ daily (WT < 150 kg, CrCl > 10-29 mL/min) *Enoxaparin/Lovenox 30 mg SQ BID (WT < 150 kg, CrCl > 30 mL/min) AND/OR *Sequential Compression Device (SCD) 5 or more Highest Order ONE of the following medications: *Heparin 5000 units SQ TID (Preferred with Epidurals) *Enoxaparin/Lovenox 40 mg SQ daily (WT < 150 kg, CrCl > 30 mL/min) *Enoxaparin/Lovenox 30 mg SQ daily (WT < 150 kg, CrCl > 10-29 mL/min) *Enoxaparin/Lovenox 30 mg SQ BID (WT < 150 kg, CrCl > 30 mL/min) AND *Sequential Compression Device (SCD) Assessment and Plan - Assessment (1) Enteritis Code(s): K52.9 - Noninfective gastroenteritis and colitis, unspecified Status : Acute Plan: Will evaluate while accomplishing laparoscopy. If this appears to be Crohn's disease, will hold on appendectomy. (2) Appendicitis Code(s): K37 - Unspecified appendicitis Status: Acute Plan: If patient does not have obvious signs and symptoms of Crohn's disease in the terminal ileum, will proceed with appendectomy. If he has obvious Crohn's disease, will attempt to treat nonoperatively first. - Plan Laparoscopy with possible laparoscopic appendectomy. I have discussed risks of the procedure with the patient, including but not limited to: Bleeding, infection, need for drainage, leakage, adhesion formation. I have discussed remedies, consequences, benefits, alternatives and convalescence with the patient; he vocalizes understanding and agrees to proceed. - Attending Attestation I attest that I had a [id number] encounter with the patient on the same day, and personally performed and documented my assessment and findings in the medical record. The following services were provided during this hospital visit: Chart data review, vital sign assessments/reviewing monitor data Review of consultation notes if present Medication orders/review and/or management Ordering and/or reviewing lab tests Ordering and/or interpreting/reviewing x-rays and/or diagnostic studies Care of the patient and discussion of the patient with the care team Documentation time To help prompt me to consider important information that might be impacting today's encounter and assessment, Information from prior notes written by myself or my colleagues may have been "brought forward/copy and pasted" into today's note.
[2018-03-14] MEDS ORDERED: MethylPREDNISolone Sod Succinate Inj 125 MG/2 ML Vial ONE (21:24)
--- NOTE | 2018-03-14 21:53 | P.OP ---
- Preoperative Diagnosis (1) Appendicitis (2) Enteritis - Postoperative Diagnosis (1) Crohn's disease of ileum Date of procedure: 03/14/18 Procedure: 1. Diagnostic laparoscopy 2. Gram stain, culture and sensitivity of peritoneal fluid 3. Biopsy ileal mesentery Surgeon: Silverio Dave MD Nurse Research: Willy Lenz CFA Estimated blood loss (mL): 30 IV fluids (mL): 2,000 Pathology: other (ileal mesenteric tissue) Operation and Findings: Patient was taken to the operating room and placed on the operating table in the supine position. After an adequate level of general endotracheal anesthesia was achieved the abdomen was shaved prepped and draped. Timeout was taken, confirming the correct patient, site, and procedure to be performed. Skin and subcutaneous tissue was infiltrated with local anesthetic and an incision made in the umbilicus and carried through the fascia sharply. The peritoneal cavity was directly visualized. A 12 mm balloon trocar was inserted and the balloon inflated. The abdomen was insufflated. The patient was placed in Trendelenburg position. Two 5 mm trocars were placed, with the first in the right lower quadrant and the second in the suprapubic region. Both entered the abdominal cavity under direct vision uneventfully. Patient was noted upon entering the abdominal cavity to have injected small bowel with creeping fat on the ileum as well as on a loop of sigmoid colon. Purulent material was noted in the pelvis and in the right lower quadrant. The appendix appeared to be somewhat inflamed, but with the ileum inflamed, and a putative diagnosis of Crohn's disease, the appendix was left intact so as not to cause a fistula. Gram stain, culture and sensitivity were taken of the purulent fluid. Careful examination of the small bowel from just beyond the ligament of Treitz to the ileocecal valve revealed inflamed small bowel with progressive inflammatory process becoming worse the further distal the examination proceeded. Care was taken not to injure the small bowel during this manipulation. The small bowel mesentery near where the sigmoid colon was adhered was gently taken down with careful dissection with the harmonic scalpel. No diverticular abscesses or perforations were noted. Two small pieces of mesentery were taken with the harmonic scalpel where advertising account representative inflammatory process was noted. Care was taken to stay away from the bowel in obtaining the specimens. Careful rinsing of the entire abdominal cavity revealed no other pathology. A Michael drain was placed into the pelvis and brought out via the right gutter. This was fixed to the skin with a 3-0 nylon suture. The abdomen was then desufflated and the laparoscope and umbilical port were then removed. The fascia was closed in the umbilicus with 0 Vicryl suture in both a simple interrupted and [id number] fashion. Local anesthetic was injected into the drain and into the umbilical fascia. The skin was closed in the umbilicus and in the suprapubic site with 4-0 Vicryl in an interrupted buried fashion. A 4 x 4 was applied around the drain. Sponge and needle counts were reported to be correct. The patient was extubated and taken back to the recovery room in stable condition. He was given Solu-Medrol intraoperatively once the diagnosis of Crohn's disease was felt to be most likely.
[2018-03-14] MEDS ORDERED: fentaNYL Citrate Inj 100 MCG/2 ML Ampul ONE (22:00)
[2018-03-14] MEDS: Dextrose 5%/Lactated Ringer's 1,000 ML IV.CONT SCH (22:28)
[2018-03-15] MEDS: Piperacil/Tazo 4.5 GM Premix 4.5 GM/100 ML BAG IV.SIG SCH ×4 (01:24→20:41)
[2018-03-15] MEDS: Morphine Inj 4 MG/ML Vial IV.PUSH PRN ×6 (03:06→20:41)
[2018-03-15 05:13] LABS: Hemoglobin 15.3 gm/dL (13.0-17.0); Lymph # (Auto) 0.4 th/mm3 (1.0-4.8); Lymph % (Auto) 2.3 % (9.0-44.0); Mean Corpuscular HGB Conc 35.7 % (32.0-36.0); Mean Corpuscular Hemoglobin 32.5 pg (27.0-34.0); Mean Corpuscular Volume 91.1 fL (80.0-100.0); Mean Platelet Volume 9.7 fL (7.0-11.0); Mono # (Auto) 0.5 th/mm3 (0.0-0.9); Mono % (Auto) 2.5 % (0.0-8.0); Neut # (Auto) 17.6 th/mm3 (1.8-7.7); Neut % (Auto) 95.2 % (16.0-70.0); Platelet Count 173 th/mm3 (150-450); Red Blood Count 4.72 mil/mm3 (4.50-5.90); Red Cell Distribution Width 13.3 % (11.6-17.2); White Blood Count 18.5 th/mm3 (4.0-11.0)
[2018-03-15 05:33] LABS: Calcium 8.6 mg/dL (8.5-10.1); Carbon Dioxide 28.1 meq/L (21.0-32.0); Potassium 4.2 meq/L (3.5-5.1)
[2018-03-15] MEDS: Dextrose 5%/Lactated Ringer's 1,000 ML IV.CONT SCH ×2 (05:37→13:52)
--- NOTE | 2018-03-15 10:48 | P.CONGI ---
History of Present Illness Consult date: 03/15/18 Consult reason: Crohn's disease, new diagnosis Chief complaint: Acute Appendicitis History of Present Illness: This is a well-nourished 32-year-old male who came to the hospital on 03/14/2018 with acute appendicitis. Patient is status post diagnostic laparotomy with SAURAV drain placement showing red cloudy drainage. Surgery was performed per Dr. Dave and patient is currently being managed in the intensive care setting. Patient also noted right upper mid and lower quadrant pain as his focus but does note generalized abdominal pain also over the past 2 days. Aggregating factor appears to be 2 sausages with spicy sauce but also notes other aggregating factors as red sauce over the past year. Patient has noted some chronic nausea more related to car sickness or positional but denies any vomiting. Patient denies any rashes joint pain or wall ulcers and is not been on any blood thinners. Current labs evaluated are WBC count which initially was 24.5 now 18.5, hemoglobin 15.3. Patient denies any family history of colon cancer or any Crohn 's disease or inflammatory diseases. Mother is currently at his bedside and assisting with family history. Patient does note recent right inguinal hernia repair 3 months ago and jaw fracture repair 6 months ago but states that before surgeries patient was working out and had no signs of any obvious abdominal pain. CT scan now shows acute appendicitis without rupture or abscess. Enteritis and colitis most severely involving the ileum and of concern for underlying Crohn's disease. Also noted is enlarged and fatty liver and tiny nonobstructing stone in the left kidney. Gastroenterology was consulted to assist with possible diagnosis of Crohn's disease. Patient is awake and a fair to good historian. Review of Systems All other systems reviewed negative except as stated in HPI PMFSH - History History Provided By: Patient - Medical History Medical History: Medical History (Last Updated 03/14/18 @ 20:09 by Silverio Dave MD) Fracture, mandible - Surgical History Surgical History: Surgical History (Last Updated 03/14/18 @ 15:45 by Eliza Forrester MD) History of herniorrhaphy - Tobacco History Second Hand Smoke Exposure: No Tobacco Use In Past 30 Days: No Smoking Status: Former smoker Tobacco Type: Cigarettes - Alcohol History How Often Do You Have a Drink Containing Alcohol: Monthly or less - Substance Use History Substance History: No History of Abuse - Travel History Recent Travel in the [place] Within the Last 8 Weeks: No Recent Travel Out of the Country Within the Last 8 Weeks: No - Immunization History Tetanus Immunization: Unsure Medications and Allergies Active Medications: Active Medications Piperacillin/Tazobactam/Dextrose (Zosyn 4.5 Gm Premix) 4.5 gm in 100 mls @ 200 mls/hr IV.SIG Q6H [facility] Last Infusion: 03/15/18 10:33 Dose: Infused Dextrose/Lactated Ringer's (D5w/Lr Inj) 1,000 mls @ 125 mls/hr IV.CONT .Q8H [facility] Last Admin: 03/15/18 05:37 Dose: 125 mls/hr Miscellaneous Information ([facility] Nursing Information) 1 each OTHER UNSCH PRN PRN Reason: SEE LABEL COMMENTS Stop: 03/15/18 22:17 Morphine Sulfate (Morphine Inj) 4 mg IV.PUSH Q3H PRN PRN Reason: Acute Pain Last Admin: 03/15/18 08:51 Dose: 4 mg Sodium Chloride (Ns Flush) 2 ml IV.FLUSH PRN PRN PRN Reason: FLUSH AFTER USING IV ACCESS Last Admin: 03/14/18 15:55 Dose: 2 ml Allergies Allergy/AdvReac Type Severity Reaction Status Date / Time clindamycin Allergy Severe RASH Unverified 07/22/17 10:41 Sulfa (Sulfonamide Allergy Severe Rash Unverified 07/22/17 10:41 Antibiotics) Home Medications Medication Instructions Recorded Confirmed Type No Known Home Medications 03/14/18 03/14/18 History Exam Vital signs: Vital Signs 03/14/18 13:43 03/14/18 17:59 03/14/18 19:18 Temperature 98.3 F Pulse Rate 111 H 71 104 H Respiratory Rate 18 18 20 Blood Pressure 143/89 H 120/72 123/58 L Pulse Oximetry 98 100 96 03/14/18 21:46 03/14/18 22:00 03/14/18 22:15 Temperature 99 F Pulse Rate 112 H 101 H 97 H Respiratory Rate 18 18 15 Blood Pressure 116/80 116/59 L 121/58 L Pulse Oximetry 97 94 L 93 L 03/14/18 22:30 03/14/18 22:45 03/14/18 23:00 Temperature 98.2 F Pulse Rate 95 H 96 H Respiratory Rate 17 22 Blood Pressure 116/59 L 128/65 Pulse Oximetry 92 L 94 L 90 L 03/14/18 23:15 03/15/18 00:00 03/15/18 04:00 Temperature 98.8 F 98.8 F 98.3 F Pulse Rate 91 H 80 64 Respiratory Rate Blood Pressure 116/64 124/66 116/72 Pulse Oximetry 91 L 94 L 96 03/15/18 06:21 03/15/18 08:00 03/15/18 10:33 Temperature 98.4 F Pulse Rate 71 Respiratory Rate 19 18 Blood Pressure 123/72 Pulse Oximetry 96 97 Intake & Output 03/14/18 03/15/18 03/15/18 18:59 06:59 18:59 Intake Total 1000 / 1000 3300 / 3300 100 / 100 Output Total 1380 / 1380 Balance 1000 / 1000 1920 / 1920 100 / 100 Weight 95.254 kg 98.7 kg Intake: IV 1000 / 1000 1250 / 1250 100 / 100 D5W/LR Inj 1,000 ML @ 125 mls/ 1000 / 1000 hr IV.CONT .Q8H [facility] Rx#: [id number] Zosyn 3.375 GM Premix 50 ML @ 50 / 50 100 mls/hr IV.SIG ONCE ONE Rx#: [id number] Zosyn 4.5 GM Premix 4.5 gm In 100 / 100 100 / 100 100 ml @ 200 mls/hr IV.SIG Q6H [facility] Rx#:[id number] NS Inj 1,000 ML @ Wide Open IV. 1000 / 1000 SIG BOLUS ONE Rx#:[id number] Flagyl 500 MG Inj 100 ML @ 0 100 / 100 mls/hr IV.SIG .STK-MED ONE Rx#: [id number] Oral 50 / 50 Anesthesia Amount 1999 / 1999 Output: Urine 1000 / 1000 Estimated Blood Loss 30 / 30 Wound Drainage 350 / 350 # 1 Abdomen Michael 350 / 350 - Constitutional mild distress, average body habitus, cooperative - Routine HEENT Exam Head: Present: normocephalic ENT: Present: mucous membranes moist - Routine Neck Exam Present: supple - Routine Respiratory Exam Present: accessory muscle use (No obvious shortness of breath wheezing or rhonchi mild decrease breath sounds bilateral) - Routine Cardiovascular Exam Present: S1, S2 - Routine Abdominal Exam Present: distended (Mild minimal distention, no obvious bowel sounds, not passing flatus), drain (SAURAV drain with cloudy bloody drainage) - Routine Skin Exam Present: intact - Routine Neurological Exam Present: alert Results - Labs CBC & Chem 7: 03/15/18 04:12 03/15/18 04:12 Labs: Laboratory Results - last 24 hr 03/14/18 03/14/18 03/14/18 13:50 13:50 18:00 WBC 24.5 H RBC 5.13 Hgb 16.2 Hct 47.3 MCV 92.0 MCH 31.5 MCHC 34.2 RDW 13.2 Plt Count 234 MPV 10.0 Neut % (Auto) 91.8 H Lymph % (Auto) 3.4 L [place] % (Auto) 4.6 Eos % (Auto) 0.0 Baso % (Auto) 0.2 Neut # (Auto) 22.4 H Lymph # (Auto) 0.8 L [place] # (Auto) 1.1 H Eos # (Auto) 0.0 Baso # (Auto) 0.1 WBC Differential . Differential Comment Auto diff final Sodium 133 L Potassium 4.1 Chloride 93 L Carbon Dioxide 29.5 Anion Gap 11 BUN 14 Creatinine 1.31 H Estimated GFR 64 L Random Glucose 108 H Calcium 9.3 Total Bilirubin 2.4 H AST 61 H ALT 110 H Alkaline Phosphatase 75 Total Protein 8.5 H Albumin 4.1 Lipase 65 L Urine Color Yellow Urine Clarity Clear Urine pH 6.0 Ur Specific [place] 1.009 Urine Protein Negative Urine Glucose (UA) Negative Urine Ketones Negative Urine Occult Blood Negative Urine Nitrate Negative Urine Bilirubin Negative Urine Urobilinogen Less than 2 Ur Leukocyte Esterase Negative Urine RBC Less than 1 Urine WBC 2 Ur Squamous Epith Cells <1 Urine Bacteria Occasional H Hyaline Casts 4 Micro UA Comment Culture not ind Ur Microscopic Review Not Reportable Urine Culture Comments Culture not ind Nasal Screen MRSA (PCR) 03/14/18 03/15/18 03/15/18 23:10 04:12 04:12 WBC 18.5 H RBC 4.72 Hgb 15.3 Hct 43.0 MCV 91.1 MCH 32.5 MCHC 35.7 RDW 13.3 Plt Count 173 MPV 9.7 Neut % (Auto) 95.2 H Lymph % (Auto) 2.3 L [place] % (Auto) 2.5 Eos % (Auto) 0.0 Baso % (Auto) 0.0 Neut # (Auto) 17.6 H Lymph # (Auto) 0.4 L [place] # (Auto) 0.5 Eos # (Auto) 0.0 Baso # (Auto) 0.0 WBC Differential . Differential Comment Auto diff final Sodium 140 Potassium 4.2 Chloride 102 D Carbon Dioxide 28.1 Anion Gap 10 BUN 11 Creatinine 1.17 Estimated GFR 73 L Random Glucose 144 H Calcium 8.6 Total Bilirubin AST ALT Alkaline Phosphatase Total Protein Albumin Lipase Urine Color Urine Clarity Urine pH Ur Specific [place] Urine Protein Urine Glucose (UA) Urine Ketones Urine Occult Blood Urine Nitrate Urine Bilirubin Urine Urobilinogen Ur Leukocyte Esterase Urine RBC Urine WBC Ur Squamous Epith Cells Urine Bacteria Hyaline Casts Micro UA Comment Ur Microscopic Review Urine Culture Comments Nasal Screen MRSA (PCR) Not detected - Imaging Impressions Abdomen/Pelvis CT 03/14/18 15:41 CONCLUSION: 1. Acute appendicitis without abscess or rupture. 2. Enteritis and colitis, most severely involving the ileum and of concern for underlying Crohn's disease. 3. Enlarged and fatty infiltrated liver. 4. Tiny nonobstructing stone of the left kidney. Assessment and Plan - Plan This is a well-nourished 32-year-old male who came to the hospital on 03/14/2018 with acute appendicitis. Patient is status post diagnostic laparotomy with SAURAV drain placement showing red cloudy drainage. Surgery was performed per Dr. Dave and patient is currently being managed in the intensive care setting. Patient also noted right upper mid and lower quadrant pain as his focus but does note generalized abdominal pain also over the past 2 days. Aggregating factor appears to be 2 sausages with spicy sauce but also notes other aggregating factors as red sauce over the past year. Patient has noted some chronic nausea more related to car sickness or positional but denies any vomiting. Patient denies any rashes joint pain or wall ulcers and is not been on any blood thinners. Current labs evaluated are WBC count which initially was 24.5 now 18.5, hemoglobin 15.3. Patient denies any family history of colon cancer or any Crohn 's disease or inflammatory diseases. Mother is currently at his bedside and assisting with family history. Patient does note recent right inguinal hernia repair 3 months ago and jaw fracture repair 6 months ago but states that before surgeries patient was working out and had no signs of any obvious abdominal pain. CT scan now shows acute appendicitis without rupture or abscess. Enteritis and colitis most severely involving the ileum and of concern for underlying Crohn's disease. Also noted is enlarged and fatty liver and tiny nonobstructing stone in the left kidney. Gastroenterology was consulted to assist with possible diagnosis of Crohn's disease. Patient is awake and a fair to good historian. New onset Crohn's disease noted per CT scan with inner hiatus and colitis most severely involving the ileum Hepatomegaly and enlarged fatty liver Status post laparotomy for acute appendicitis. Currently patient has absent bowel sounds and is not passing any gas. Notes minimal abdominal discomfort and tenderness which seems to be related to surgery. Biopsies are pending Will need to monitor for possible ileus postop Plan Diet n.p.o. for now, ice chips Biopsies pending Will initiate liver workup related to patient's fatty liver as well as hepatomegaly Zosyn Monitor labs Consider steroids Further recommendations to follow Patient was seen per myself and Dr. Tinajero, note was written on his behalf
--- NOTE | 2018-03-15 11:36 | P.PNGS ---
Subjective Interval history: Resting in bed Not really hungry this morning Pain better this morning vs. last night, however Physical Exam Vital signs: Vital Signs 03/14/18 13:43 03/14/18 17:59 03/14/18 19:18 Temperature 98.3 F Pulse Rate 111 H 71 104 H Respiratory Rate 18 18 20 Blood Pressure 143/89 H 120/72 123/58 L Pulse Oximetry 98 100 96 03/14/18 21:46 03/14/18 22:00 03/14/18 22:15 Temperature 99 F Pulse Rate 112 H 101 H 97 H Respiratory Rate 18 18 15 Blood Pressure 116/80 116/59 L 121/58 L Pulse Oximetry 97 94 L 93 L 03/14/18 22:30 03/14/18 22:45 03/14/18 23:00 Temperature 98.2 F Pulse Rate 95 H 96 H Respiratory Rate 17 22 Blood Pressure 116/59 L 128/65 Pulse Oximetry 92 L 94 L 90 L 03/14/18 23:15 03/15/18 00:00 03/15/18 04:00 Temperature 98.8 F 98.8 F 98.3 F Pulse Rate 91 H 80 64 Respiratory Rate Blood Pressure 116/64 124/66 116/72 Pulse Oximetry 91 L 94 L 96 03/15/18 06:21 03/15/18 08:00 03/15/18 10:33 Temperature 98.4 F Pulse Rate 71 Respiratory Rate 19 18 Blood Pressure 123/72 Pulse Oximetry 96 97 Intake & Output 03/14/18 03/15/18 03/15/18 18:59 06:59 18:59 Intake Total 1000 / 1000 3300 / 3300 100 / 100 Output Total 1380 / 1380 Balance 1000 / 1000 1920 / 1920 100 / 100 Weight 95.254 kg 98.7 kg Intake: IV 1000 / 1000 1250 / 1250 100 / 100 D5W/LR Inj 1,000 ML @ 125 mls/ 1000 / 1000 hr IV.CONT .Q8H [facility] Rx#: [id number] Zosyn 3.375 GM Premix 50 ML @ 50 / 50 100 mls/hr IV.SIG ONCE ONE Rx#: [id number] Zosyn 4.5 GM Premix 4.5 gm In 100 / 100 100 / 100 100 ml @ 200 mls/hr IV.SIG Q6H [facility] Rx#:[id number] NS Inj 1,000 ML @ Wide Open IV. 1000 / 1000 SIG BOLUS ONE Rx#:[id number] Flagyl 500 MG Inj 100 ML @ 0 100 / 100 mls/hr IV.SIG .STK-MED ONE Rx#: [id number] Oral 50 / 50 Anesthesia Amount 1999 Output: Urine 1000 / 1000 Estimated Blood Loss 30 / 30 Wound Drainage 350 / 350 # 1 Abdomen Michael 350 / 350 Narrative: Alert and awake Abd: drain with sanguinous cloudy fluid; lap sites c/d/i; mildly distended; minimally tender Results - Labs 03/16/18 06:15 03/16/18 06:15 Laboratory Results - last 24 hr 03/14/18 03/14/18 03/14/18 13:50 13:50 18:00 WBC 24.5 H RBC 5.13 Hgb 16.2 Hct 47.3 MCV 92.0 MCH 31.5 MCHC 34.2 RDW 13.2 Plt Count 234 MPV 10.0 Neut % (Auto) 91.8 H Lymph % (Auto) 3.4 L [place] % (Auto) 4.6 Eos % (Auto) 0.0 Baso % (Auto) 0.2 Neut # (Auto) 22.4 H Lymph # (Auto) 0.8 L [place] # (Auto) 1.1 H Eos # (Auto) 0.0 Baso # (Auto) 0.1 WBC Differential . Differential Comment Auto diff final Sodium 133 L Potassium 4.1 Chloride 93 L Carbon Dioxide 29.5 Anion Gap 11 BUN 14 Creatinine 1.31 H Estimated GFR 64 L Random Glucose 108 H Calcium 9.3 Total Bilirubin 2.4 H AST 61 H ALT 110 H Alkaline Phosphatase 75 Total Protein 8.5 H Albumin 4.1 Lipase 65 L Urine Color Yellow Urine Clarity Clear Urine pH 6.0 Ur Specific [place] 1.009 Urine Protein Negative Urine Glucose (UA) Negative Urine Ketones Negative Urine Occult Blood Negative Urine Nitrate Negative Urine Bilirubin Negative Urine Urobilinogen Less than 2 Ur Leukocyte Esterase Negative Urine RBC Less than 1 Urine WBC 2 Ur Squamous Epith Cells <1 Urine Bacteria Occasional H Hyaline Casts 4 Micro UA Comment Culture not ind Ur Microscopic Review Not Reportable Urine Culture Comments Culture not ind Nasal Screen MRSA (PCR) 03/14/18 03/15/18 03/15/18 23:10 04:12 04:12 WBC 18.5 H RBC 4.72 Hgb 15.3 Hct 43.0 MCV 91.1 MCH 32.5 MCHC 35.7 RDW 13.3 Plt Count 173 MPV 9.7 Neut % (Auto) 95.2 H Lymph % (Auto) 2.3 L [place] % (Auto) 2.5 Eos % (Auto) 0.0 Baso % (Auto) 0.0 Neut # (Auto) 17.6 H Lymph # (Auto) 0.4 L [place] # (Auto) 0.5 Eos # (Auto) 0.0 Baso # (Auto) 0.0 WBC Differential . Differential Comment Auto diff final Sodium 140 Potassium 4.2 Chloride 102 D Carbon Dioxide 28.1 Anion Gap 10 BUN 11 Creatinine 1.17 Estimated GFR 73 L Random Glucose 144 H Calcium 8.6 Total Bilirubin AST ALT Alkaline Phosphatase Total Protein Albumin Lipase Urine Color Urine Clarity Urine pH Ur Specific [place] Urine Protein Urine Glucose (UA) Urine Ketones Urine Occult Blood Urine Nitrate Urine Bilirubin Urine Urobilinogen Ur Leukocyte Esterase Urine RBC Urine WBC Ur Squamous Epith Cells Urine Bacteria Hyaline Casts Micro UA Comment Ur Microscopic Review Urine Culture Comments Nasal Screen MRSA (PCR) Not detected - Imaging Imaging: ITS Impressions Abdomen/Pelvis CT 03/14/18 15:41 CONCLUSION: 1. Acute appendicitis without abscess or rupture. 2. Enteritis and colitis, most severely involving the ileum and of concern for underlying Crohn's disease. 3. Enlarged and fatty infiltrated liver. 4. Tiny nonobstructing stone of the left kidney. Assessment and Plan - Assessment (1) Enteritis Code(s): K52.9 - Noninfective gastroenteritis and colitis, unspecified Status : Acute (2) Abdominal pain Code(s): R10.9 - Unspecified abdominal pain Status: Acute Plan: 32 year old male with abdominal pain; POD1 Diagnostic laparoscopy; Gram stain, culture and sensitivity of peritoneal fluid; Biopsy ileal mesentery -Await biopsies---suspicious for Crohn's disease -Cultures of peritoneal fluid obtained---await results--consult ID -Patient high risk for ileus--- okay for sips of clears---would not advance until bowel function returns -GI consulted -Okay to transfer out of [facility] -Discussed with KYLE Smtih Abdomen less tender; discussed diagnosis with patient Stable overnight Will need medical management of his Crohn's disease; will need colonoscopy at some point to definitively diagnose the disease The exam, history, and the medical decision-making described in the above note were completed with the assistance of the mid-level provider. I reviewed and agree with the findings presented. I attest that I had a [id number] encounter with the patient on the same day, and personally performed and documented my assessment and findings in the medical record.
--- NOTE | 2018-03-15 15:40 | P.CONID ---
History of Present Illness Service: Infectious disease Consult date: 03/15/18 Requesting Physician: Silverio Dave Reason for Consult: Evaluate patient who is status post diagnostic laparoscopy, with some purul Primary Care Provider: No Primary Care Physician Family Provider: No Primary Care Physician History of Present Illness: Patient seen and examined. Records reviewed. Patient is a 32-year-old male, presented to the hospital complaining 2-day history of significant abdominal pain. He has had some nausea but no vomiting. On reviewing his records he has had several visits in the emergency room complaining of some nausea and some abdominal pain and this was back in June and July of this year. Imaging studies on this admission revealed findings of appendicitis, but the he also has abnormalities in his bowels. He underwent diagnostic laparoscopy, and he has evidence of significant inflammation of his bowels. There was some purulent fluid in the bowel and this was sent for culture. He also had an ileal mesentery biopsy done and those are still pending. GI is evaluating the patient for possible Crohn's disease. Patient denies any ongoing problem with constipation or diarrhea. Infectious disease consultation has been requested to evaluate the patient and make recommendation on antibiotics. Review of Systems Constitutional: Denies chills, Denies fever(s), Denies night sweats Eyes: Denies discharge, Denies dry eyes Ears, Nose, Mouth, and Throat: Denies difficulty swallowing, Denies nasal congestion, Denies nasal discharge, Denies neck pain, Denies pain with swallowing, Denies sore throat Cardiovascular: Denies chest pain, Denies shortness of breath Respiratory: Denies chest congestion, Denies cough, Denies shortness of breath Gastrointestinal: Reports abdominal pain, Reports nausea, Denies pain with swallowing, Denies vomiting Genitourinary: Denies difficulty urinating, Denies painful urination Musculoskeletal: Denies joint pain, Denies joint swelling Skin/Breast: Denies rash, Denies sores Neurologic: Denies headache(s) PMFSH - History History Provided By: Patient - Medical History Medical History: Medical History (Last Reviewed 03/15/18 @ 15:36 by Angela Brown MD) Fracture, mandible - Surgical History Surgical History: Surgical History (Last Reviewed 03/15/18 @ 15:36 by Angela Brown MD) History of herniorrhaphy - Tobacco History Second Hand Smoke Exposure: No Tobacco Use In Past 30 Days: No Smoking Status: Former smoker Tobacco Type: Cigarettes - Alcohol History How Often Do You Have a Drink Containing Alcohol: Monthly or less - Substance Use History Substance History: No History of Abuse - Travel History Recent Travel in the [place] Within the Last 8 Weeks: No Recent Travel Out of the Country Within the Last 8 Weeks: No - Immunization History Tetanus Immunization: Unsure Medications and Allergies Active Medications: Active Medications Chlordiazepoxide (Librium) 10 mg PO Q8H PRN PRN Reason: AGITATION AND/OR HALLUCINATION Piperacillin/Tazobactam/Dextrose (Zosyn 4.5 Gm Premix) 4.5 gm in 100 mls @ 200 mls/hr IV.SIG Q6H [facility] Last Infusion: 03/15/18 14:26 Dose: Infused Dextrose/Lactated Ringer's (D5w/Lr Inj) 1,000 mls @ 125 mls/hr IV.CONT .Q8H [facility] Last Admin: 03/15/18 13:52 Dose: 125 mls/hr Methylprednisolone Sodium Succinate (Solumedrol Inj) 20 mg IV.PUSH Q12H [facility] Miscellaneous Information ([facility] [place] [facility] Information) 1 each OTHER UNSCH PRN PRN Reason: SEE LABEL COMMENTS Stop: 03/15/18 22:17 Morphine Sulfate (Morphine Inj) 4 mg IV.PUSH Q3H PRN PRN Reason: Acute Pain Last Admin: 03/15/18 13:52 Dose: 4 mg Sodium Chloride (Ns Flush) 2 ml IV.FLUSH PRN PRN PRN Reason: FLUSH AFTER USING IV ACCESS Last Admin: 03/14/18 15:55 Dose: 2 ml Allergies Allergy/AdvReac Type Severity Reaction Status Date / Time clindamycin Allergy Severe RASH Unverified 07/22/17 10:41 Sulfa (Sulfonamide Allergy Severe Rash Unverified 07/22/17 10:41 Antibiotics) Home Medications Medication Instructions Recorded Confirmed Type No Known Home Medications 03/14/18 03/14/18 History Exam Vital signs: Vital Signs 03/14/18 17:59 03/14/18 19:18 03/14/18 21:46 Temperature 99 F Pulse Rate 71 104 H 112 H Respiratory Rate 18 20 18 Blood Pressure 120/72 123/58 L 116/80 Pulse Oximetry 100 96 97 03/14/18 22:00 03/14/18 22:15 03/14/18 22:30 Temperature Pulse Rate 101 H 97 H 95 H Respiratory Rate 18 15 17 Blood Pressure 116/59 L 121/58 L 116/59 L Pulse Oximetry 94 L 93 L 92 L 03/14/18 22:45 03/14/18 23:00 03/14/18 23:15 Temperature 98.2 F 98.8 F Pulse Rate 96 H 91 H Respiratory Rate 22 Blood Pressure 128/65 116/64 Pulse Oximetry 94 L 90 L 91 L 03/15/18 00:00 03/15/18 04:00 03/15/18 06:21 Temperature 98.8 F 98.3 F Pulse Rate 80 64 Respiratory Rate Blood Pressure 124/66 116/72 Pulse Oximetry 94 L 96 96 03/15/18 08:00 03/15/18 10:33 03/15/18 11:45 Temperature 98.4 F Pulse Rate 71 Respiratory Rate 19 18 15 Blood Pressure 123/72 Pulse Oximetry 97 03/15/18 12:00 03/15/18 14:26 Temperature 97.7 F Pulse Rate 65 Respiratory Rate 18 18 Blood Pressure 111/65 Pulse Oximetry 96 Intake & Output 03/14/18 03/15/18 03/15/18 18:59 06:59 18:59 Intake Total 1000 / 1000 3300 / 3300 1075 / 1075 Output Total 1380 / 1380 Balance 1000 / 1000 1920 / 1920 1075 / 1075 Weight 95.254 kg 98.7 kg Intake: IV 1000 / 1000 1250 / 1250 1075 / 1075 D5W/LR Inj 1,000 ML @ 125 mls/ 1000 / 1000 875 / 875 hr IV.CONT .Q8H [facility] Rx#: [id number] Zosyn 3.375 GM Premix 50 ML @ 50 / 50 100 mls/hr IV.SIG ONCE ONE Rx#: [id number] Zosyn 4.5 GM Premix 4.5 gm In 100 / 100 200 / 200 100 ml @ 200 mls/hr IV.SIG Q6H [facility] Rx#:[id number] NS Inj 1,000 ML @ Wide Open IV. 1000 / 1000 SIG BOLUS ONE Rx#:[id number] Flagyl 500 MG Inj 100 ML @ 0 100 / 100 mls/hr IV.SIG .STK-MED ONE Rx#: [id number] Oral 50 / 50 Anesthesia Amount 1999 Output: Urine 1000 / 1000 Estimated Blood Loss 30 / 30 Wound Drainage 350 / 350 # 1 Abdomen Michael 350 / 350 Narrative: Physical Examination GENERAL: Patient is a well-nourished, well-developed male, awake and alert, not in respiratory distress. SKIN: Warm and dry. No generalized rash, no ecchymoses and no evidence of embolic lesions. HEAD: Atraumatic. Normocephalic. No temporal wasting, or tenderness. EYES: [place] conjunctiva. No petechia or hemorrhage. Pupils equal, round and reactive to light. Extraocular movements full and intact. No scleral icterus. No injection or drainage. EARS, NOSE AND THROAT: Nose without bleeding or purulent nasal discharge. No sinus tenderness. Mucous membranes pink and moist. No oral lesions noted. No exudate. No oral thrush. NECK: Trachea midline. Supple and not tender, no meningeal signs CARDIOVASCULAR: Regular rate and rhythm. No murmurs, rubs or gallops heard RESPIRATORY: Clear to auscultation. Breath sounds equal bilaterally. No rales , wheezing or rhonchi ABDOMEN: Soft, nondistended, hypoactive bowel sounds, diffuse tenderness. Incisions dry. No rebound. EXTREMITIES: No clubbing, cyanosis, or edema. No joint effusion, has good ROM. No calf tenderness. Well perfused and warm. NEUROLOGICAL: Awake and alert. Cranial nerves grossly intact. Motor grossly within normal limits. PSYCHIATRIC: Normal affect, calm and cooperative. LINE: No evidence of infection Results - Labs CBC & Chem 7: 03/15/18 04:12 03/15/18 04:12 Labs: Laboratory Results - last 24 hr 03/14/18 03/14/18 03/14/18 13:50 13:50 18:00 WBC 24.5 H RBC 5.13 Hgb 16.2 Hct 47.3 MCV 92.0 MCH 31.5 MCHC 34.2 RDW 13.2 Plt Count 234 MPV 10.0 Neut % (Auto) 91.8 H Lymph % (Auto) 3.4 L [place] % (Auto) 4.6 Eos % (Auto) 0.0 Baso % (Auto) 0.2 Neut # (Auto) 22.4 H Lymph # (Auto) 0.8 L [place] # (Auto) 1.1 H Eos # (Auto) 0.0 Baso # (Auto) 0.1 WBC Differential . Differential Comment Auto diff final Sodium 133 L Potassium 4.1 Chloride 93 L Carbon Dioxide 29.5 Anion Gap 11 BUN 14 Creatinine 1.31 H Estimated GFR 64 L Random Glucose 108 H Calcium 9.3 Total Bilirubin 2.4 H AST 61 H ALT 110 H Alkaline Phosphatase 75 Total Protein 8.5 H Albumin 4.1 Lipase 65 L Urine Color Yellow Urine Clarity Clear Urine pH 6.0 Ur Specific [place] 1.009 Urine Protein Negative Urine Glucose (UA) Negative Urine Ketones Negative Urine Occult Blood Negative Urine Nitrate Negative Urine Bilirubin Negative Urine Urobilinogen Less than 2 Ur Leukocyte Esterase Negative Urine RBC Less than 1 Urine WBC 2 Ur Squamous Epith Cells <1 Urine Bacteria Occasional H Hyaline Casts 4 Micro UA Comment Culture not ind Ur Microscopic Review Not Reportable Urine Culture Comments Culture not ind Nasal Screen MRSA (PCR) 03/14/18 03/15/18 03/15/18 23:10 04:12 04:12 WBC 18.5 H RBC 4.72 Hgb 15.3 Hct 43.0 MCV 91.1 MCH 32.5 MCHC 35.7 RDW 13.3 Plt Count 173 MPV 9.7 Neut % (Auto) 95.2 H Lymph % (Auto) 2.3 L [place] % (Auto) 2.5 Eos % (Auto) 0.0 Baso % (Auto) 0.0 Neut # (Auto) 17.6 H Lymph # (Auto) 0.4 L [place] # (Auto) 0.5 Eos # (Auto) 0.0 Baso # (Auto) 0.0 WBC Differential . Differential Comment Auto diff final Sodium 140 Potassium 4.2 Chloride 102 D Carbon Dioxide 28.1 Anion Gap 10 BUN 11 Creatinine 1.17 Estimated GFR 73 L Random Glucose 144 H Calcium 8.6 Total Bilirubin AST ALT Alkaline Phosphatase Total Protein Albumin Lipase Urine Color Urine Clarity Urine pH Ur Specific [place] Urine Protein Urine Glucose (UA) Urine Ketones Urine Occult Blood Urine Nitrate Urine Bilirubin Urine Urobilinogen Ur Leukocyte Esterase Urine RBC Urine WBC Ur Squamous Epith Cells Urine Bacteria Hyaline Casts Micro UA Comment Ur Microscopic Review Urine Culture Comments Nasal Screen MRSA (PCR) Not detected - Imaging Impressions Abdomen/Pelvis CT 03/14/18 15:41 CONCLUSION: 1. Acute appendicitis without abscess or rupture. 2. Enteritis and colitis, most severely involving the ileum and of concern for underlying Crohn's disease. 3. Enlarged and fatty infiltrated liver. 4. Tiny nonobstructing stone of the left kidney. Assessment and Plan - Plan Impression Abdominal pain, with findings of inflamed small bowel/sigmoid and purulent fluid in pelvis and RLQ ?Crohn's disease Allergy to Clinda and Bactrim Recommendation Agree with Zosyn Add Diflucan while C/S pending Follow C/S Follow biopsy result GI evaluating patient Monitor progress I will follow along with you Thank you for this consultation
[2018-03-15] MEDS: MethylPREDNISolone Sod Succinate Inj 40 MG/ML Vial IV.PUSH SCH (15:46)
--- NOTE | 2018-03-15 16:35 | P.CONIM ---
History of Present Illness Primary Care Provider: No Primary Care Physician Family Provider: No Primary Care Physician History of Present Illness: 32-year-old male who presented yesterday with acute abdominal pain, leukocytosis , tachycardia,, and is currently postoperative day 1 from exploratory laparotomy which found ileal inflammation. Patient was started on broad- spectrum antibiotics, and GI, infectious disease are following. Patient reports that right-sided abdominal pain continues, is worse with deep breathing. Denies any nausea or vomiting. Denies any chest pain. Review of Systems All other systems reviewed negative except as stated in HPI PMFSH - History History Provided By: Patient - Medical History Medical History: Medical History (Last Reviewed 03/15/18 @ 15:36 by Angela Brown MD) Fracture, mandible - Surgical History Surgical History: Surgical History (Last Reviewed 03/15/18 @ 15:36 by Angela Brown MD) History of herniorrhaphy - Family History Family History: Family History (Last Updated 03/15/18 @ 16:28 by Yfn Amaya MD) Mother Healthy adult Father Diabetes - Tobacco History Second Hand Smoke Exposure: No Tobacco Use In Past 30 Days: No Smoking Status: Former smoker Tobacco Type: Cigarettes - Alcohol History How Often Do You Have a Drink Containing Alcohol: Monthly or less - Substance Use History Substance History: No History of Abuse - Travel History Recent Travel in the [place] Within the Last 8 Weeks: No Recent Travel Out of the Country Within the Last 8 Weeks: No - Immunization History Tetanus Immunization: Unsure Medications and Allergies Active Medications: Active Medications Chlordiazepoxide (Librium) 10 mg PO Q8H PRN PRN Reason: AGITATION AND/OR HALLUCINATION Piperacillin/Tazobactam/Dextrose (Zosyn 4.5 Gm Premix) 4.5 gm in 100 mls @ 200 mls/hr IV.SIG Q6H [facility] Last Infusion: 03/15/18 14:26 Dose: Infused Dextrose/Lactated Ringer's (D5w/Lr Inj) 1,000 mls @ 125 mls/hr IV.CONT .Q8H [facility] Last Admin: 03/15/18 13:52 Dose: 125 mls/hr Fluconazole (Diflucan 400 Mg Premix Bag) 200 mls @ 100 mls/hr IV.SIG Q24H [facility] Methylprednisolone Sodium Succinate (Solumedrol Inj) 20 mg IV.PUSH Q12H [facility] Last Admin: 03/15/18 15:46 Dose: 20 mg Miscellaneous Information ([facility] [place] Nursing Information) 1 each OTHER UNSCH PRN PRN Reason: SEE LABEL COMMENTS Stop: 03/15/18 22:17 Morphine Sulfate (Morphine Inj) 4 mg IV.PUSH Q3H PRN PRN Reason: Acute Pain Last Admin: 03/15/18 13:52 Dose: 4 mg Sodium Chloride (Ns Flush) 2 ml IV.FLUSH PRN PRN PRN Reason: FLUSH AFTER USING IV ACCESS Last Admin: 03/14/18 15:55 Dose: 2 ml Allergies Allergy/AdvReac Type Severity Reaction Status Date / Time clindamycin Allergy Severe RASH Unverified 07/22/17 10:41 Sulfa (Sulfonamide Allergy Severe Rash Unverified 07/22/17 10:41 Antibiotics) Home Medications Medication Instructions Recorded Confirmed Type No Known Home Medications 03/14/18 03/14/18 History Exam Vital signs: Vital Signs 03/14/18 17:59 03/14/18 19:18 03/14/18 21:46 Temperature 99 F Pulse Rate 71 104 H 112 H Respiratory Rate 18 20 18 Blood Pressure 120/72 123/58 L 116/80 Pulse Oximetry 100 96 97 03/14/18 22:00 03/14/18 22:15 03/14/18 22:30 Temperature Pulse Rate 101 H 97 H 95 H Respiratory Rate 18 15 17 Blood Pressure 116/59 L 121/58 L 116/59 L Pulse Oximetry 94 L 93 L 92 L 03/14/18 22:45 03/14/18 23:00 03/14/18 23:15 Temperature 98.2 F 98.8 F Pulse Rate 96 H 91 H Respiratory Rate 22 Blood Pressure 128/65 116/64 Pulse Oximetry 94 L 90 L 91 L 03/15/18 00:00 03/15/18 04:00 03/15/18 06:21 Temperature 98.8 F 98.3 F Pulse Rate 80 64 Respiratory Rate Blood Pressure 124/66 116/72 Pulse Oximetry 94 L 96 96 03/15/18 08:00 03/15/18 10:33 03/15/18 11:45 Temperature 98.4 F Pulse Rate 71 Respiratory Rate 19 18 15 Blood Pressure 123/72 Pulse Oximetry 97 03/15/18 12:00 03/15/18 14:26 Temperature 97.7 F Pulse Rate 65 Respiratory Rate 18 18 Blood Pressure 111/65 Pulse Oximetry 96 Intake & Output 03/14/18 03/15/18 03/15/18 18:59 06:59 18:59 Intake Total 1000 / 1000 3300 / 3300 1075 / 1075 Output Total 1380 / 1380 Balance 1000 / 1000 1920 / 1920 1075 / 1075 Weight 95.254 kg 98.7 kg Intake: IV 1000 / 1000 1250 / 1250 1075 / 1075 D5W/LR Inj 1,000 ML @ 125 mls/ 1000 / 1000 875 / 875 hr IV.CONT .Q8H [facility] Rx#: [id number] Zosyn 3.375 GM Premix 50 ML @ 50 / 50 100 mls/hr IV.SIG ONCE ONE Rx#: [id number] Zosyn 4.5 GM Premix 4.5 gm In 100 / 100 200 / 200 100 ml @ 200 mls/hr IV.SIG Q6H [facility] Rx#:[id number] NS Inj 1,000 ML @ Wide Open IV. 1000 / 1000 SIG BOLUS ONE Rx#:[id number] Flagyl 500 MG Inj 100 ML @ 0 100 / 100 mls/hr IV.SIG .STK-MED ONE Rx#: [id number] Oral 50 / 50 Anesthesia Amount 1999 Output: Urine 1000 / 1000 Estimated Blood Loss 30 / 30 Wound Drainage 350 / 350 # 1 Abdomen Michael 350 / 350 Narrative: GENERAL: Patient sitting up in bed. Appears comfortable. Alert and oriented x3. SKIN: Warm and dry. HEAD: Atraumatic. Normocephalic. EYES: Pupils equal and round. No scleral icterus. No injection or drainage. ENT: No nasal bleeding or discharge. Mucous membranes pink and moist. NECK: Trachea midline. No JVD. CARDIOVASCULAR: Regular rate and rhythm. RESPIRATORY: No accessory muscle use. Clear to auscultation. Breath sounds equal bilaterally. GASTROINTESTINAL: Abdomen soft, tender to moderate palpation. Did not attempt to palpate liver margins. Abdominal incisions are dressed, with dressings clean dry and intact. MUSCULOSKELETAL: Extremities without clubbing, cyanosis, or edema. No obvious deformities. NEUROLOGICAL: Awake and alert. No obvious cranial nerve deficits. Motor grossly within normal limits. Five out of 5 muscle strength in the arms and legs. Normal speech. PSYCHIATRIC: Appropriate mood and affect; insight and judgment normal. Results - Labs CBC & Chem 7: 03/15/18 04:12 03/15/18 04:12 Labs: Laboratory Results - last 24 hr 03/14/18 03/14/18 03/14/18 13:50 13:50 18:00 WBC 24.5 H RBC 5.13 Hgb 16.2 Hct 47.3 MCV 92.0 MCH 31.5 MCHC 34.2 RDW 13.2 Plt Count 234 MPV 10.0 Neut % (Auto) 91.8 H Lymph % (Auto) 3.4 L [place] % (Auto) 4.6 Eos % (Auto) 0.0 Baso % (Auto) 0.2 Neut # (Auto) 22.4 H Lymph # (Auto) 0.8 L [place] # (Auto) 1.1 H Eos # (Auto) 0.0 Baso # (Auto) 0.1 WBC Differential . Differential Comment Auto diff final Sodium 133 L Potassium 4.1 Chloride 93 L Carbon Dioxide 29.5 Anion Gap 11 BUN 14 Creatinine 1.31 H Estimated GFR 64 L Random Glucose 108 H Calcium 9.3 Total Bilirubin 2.4 H AST 61 H ALT 110 H Alkaline Phosphatase 75 Total Protein 8.5 H Albumin 4.1 Lipase 65 L Urine Color Yellow Urine Clarity Clear Urine pH 6.0 Ur Specific [place] 1.009 Urine Protein Negative Urine Glucose (UA) Negative Urine Ketones Negative Urine Occult Blood Negative Urine Nitrate Negative Urine Bilirubin Negative Urine Urobilinogen Less than 2 Ur Leukocyte Esterase Negative Urine RBC Less than 1 Urine WBC 2 Ur Squamous Epith Cells <1 Urine Bacteria Occasional H Hyaline Casts 4 Micro UA Comment Culture not ind Ur Microscopic Review Not Reportable Urine Culture Comments Culture not ind Nasal Screen MRSA (PCR) 03/14/18 03/15/18 03/15/18 23:10 04:12 04:12 WBC 18.5 H RBC 4.72 Hgb 15.3 Hct 43.0 MCV 91.1 MCH 32.5 MCHC 35.7 RDW 13.3 Plt Count 173 MPV 9.7 Neut % (Auto) 95.2 H Lymph % (Auto) 2.3 L [place] % (Auto) 2.5 Eos % (Auto) 0.0 Baso % (Auto) 0.0 Neut # (Auto) 17.6 H Lymph # (Auto) 0.4 L [place] # (Auto) 0.5 Eos # (Auto) 0.0 Baso # (Auto) 0.0 WBC Differential . Differential Comment Auto diff final Sodium 140 Potassium 4.2 Chloride 102 D Carbon Dioxide 28.1 Anion Gap 10 BUN 11 Creatinine 1.17 Estimated GFR 73 L Random Glucose 144 H Calcium 8.6 Total Bilirubin AST ALT Alkaline Phosphatase Total Protein Albumin Lipase Urine Color Urine Clarity Urine pH Ur Specific [place] Urine Protein Urine Glucose (UA) Urine Ketones Urine Occult Blood Urine Nitrate Urine Bilirubin Urine Urobilinogen Ur Leukocyte Esterase Urine RBC Urine WBC Ur Squamous Epith Cells Urine Bacteria Hyaline Casts Micro UA Comment Ur Microscopic Review Urine Culture Comments Nasal Screen MRSA (PCR) Not detected - Imaging Impressions Abdomen/Pelvis CT 03/14/18 15:41 CONCLUSION: 1. Acute appendicitis without abscess or rupture. 2. Enteritis and colitis, most severely involving the ileum and of concern for underlying Crohn's disease. 3. Enlarged and fatty infiltrated liver. 4. Tiny nonobstructing stone of the left kidney. Assessment and Plan - Plan //Sepsis //Ileal enteritis = Continues with leukocytosis of 18 Presented with tachycardia in the 100s on admission. = Status post oratory laparotomy with fluid cultures on 03/14. Cultures are pending Continue broad-spectrum antibiotics, antifungals as per infectious disease. Follow-up on cultures. Infectious disease following. Gastroenterology, general surgery following. //Suspected Crohn's exacerbation Gastroenterology following. On antibiotics and steroids. Appreciate assistance. Pain medications as per surgical service. //Alcohol related fatty liver disease -Patient with history of heavy drinking of alcohol as well as sweetened sodas, withdrawals in the past. Patient says he will stop drinking alcohol and sweetened soda. Discussed Condition With: Patient, nurse Discharge Planning: Pending clearance from general surgery, infectious disease.
[2018-03-15 19:54] LABS: Amphetamine Screen,Urine Neg (Neg); Barbiturate Screen,Urine Neg (Neg); Cannabinoid Screen,Urine Neg (Neg); Cocaine Screen,Urine Neg (Neg)
[2018-03-15 19:58] LABS: Opiate Screen,Urine Pos (Neg)
[2018-03-15 22:26] LABS: % Iron Saturation 5.7 % (20-50)
[2018-03-15 23:05] LABS: Hepatitis A IgM Antibody Nonreactive (Nonreactive); Hepatitits B Surface Antigen Nonreactive (Nonreactive)
[2018-03-16] MEDS: Morphine Inj 4 MG/ML Vial IV.PUSH PRN ×6 (00:19→20:25)
[2018-03-16] MEDS: Dextrose 5%/Lactated Ringer's 1,000 ML IV.CONT SCH ×4 (00:20→22:00)
[2018-03-16] MEDS: MethylPREDNISolone Sod Succinate Inj 40 MG/ML Vial IV.PUSH SCH ×2 (02:21→16:20)
[2018-03-16] MEDS: Piperacil/Tazo 4.5 GM Premix 4.5 GM/100 ML BAG IV.SIG SCH ×4 (02:21→19:51)
[2018-03-16 08:12] LABS: Baso % (Auto) 0.1 % (0.0-2.0); Hematocrit 41.6 % (39.0-51.0); Hemoglobin 13.9 gm/dL (13.0-17.0); Lymph # (Auto) 0.8 th/mm3 (1.0-4.8); Lymph % (Auto) 4.5 % (9.0-44.0); Mean Corpuscular HGB Conc 33.5 % (32.0-36.0); Mean Corpuscular Hemoglobin 31.2 pg (27.0-34.0); Mean Corpuscular Volume 93.3 fL (80.0-100.0); Mean Platelet Volume 9.7 fL (7.0-11.0); Mono # (Auto) 0.5 th/mm3 (0.0-0.9); Mono % (Auto) 2.8 % (0.0-8.0); Neut % (Auto) 92.6 % (16.0-70.0); Platelet Count 188 th/mm3 (150-450); Red Blood Count 4.46 mil/mm3 (4.50-5.90); Red Cell Distribution Width 13.2 % (11.6-17.2); White Blood Count 17.3 th/mm3 (4.0-11.0)
[2018-03-16 08:43] LABS: Calcium 8.9 mg/dL (8.5-10.1); Magnesium 2.4 mg/dL (1.5-2.5); Potassium 3.6 meq/L (3.5-5.1)
[2018-03-16 08:48] LABS: Phosphorus 1.8 mg/dL (2.5-4.9); Total Protein 7.3 g/dL (6.4-8.2)
--- NOTE | 2018-03-16 09:12 | XR ---
EXAM DATE: 03/16/2018 12:00 AM EDT AGE/SEX: 32 years / Male INDICATIONS: Evaluate for ileus. Patient is post op exploratory acute appendicitis. CLINICAL DATA: This is the patient's initial encounter. Patient reports that signs and symptoms have been present for 2 days and indicates a pain score of 7/10. MEDICAL/SURGICAL HISTORY: None. None. COMPARISON: [facility] [place], CT ABDOMEN & PELVIS W CONTRAST, 03/14/2018. . FINDINGS: Very minimal parenchymal changes right base. Left lung clear. Surgical drain in the right lower quadrant. Minimal air filled transverse colon. No free air. CONCLUSION: No significant ileus or free air. Electronically signed by: Nick Schroeder MD 03/16/2018 9:11 AM EDT
--- NOTE | 2018-03-16 10:09 | P.PNIM ---
Subjective Interval history: Patient says he feels much better than the day of admission. Still has some pain in the right upper quadrant where the drain is in place. He does not have any other complaints. Physical Exam Vital signs: Vital Signs 03/15/18 10:33 03/15/18 11:45 03/15/18 12:00 Temperature 97.7 F Pulse Rate 65 Respiratory Rate 18 15 18 Blood Pressure 111/65 Pulse Oximetry 96 03/15/18 14:26 03/15/18 16:00 03/15/18 18:09 Temperature 98.6 F Pulse Rate 82 Respiratory Rate 18 20 16 Blood Pressure 130/82 Pulse Oximetry 98 03/15/18 20:00 03/16/18 00:00 03/16/18 04:00 Temperature 98.6 F 97.9 F Pulse Rate 86 89 Respiratory Rate 18 18 18 Blood Pressure 127/71 130/74 Pulse Oximetry 92 L 94 L 03/16/18 08:00 Temperature 98.0 F Pulse Rate 84 Respiratory Rate 18 Blood Pressure 131/80 Pulse Oximetry 92 L Intake & Output 03/15/18 03/16/18 03/16/18 18:59 06:59 18:59 Intake Total 1075 / 1075 2150 / 2150 1000 / 1000 Output Total 1460 / 1460 780 / 780 Balance -385 / -385 1370 / 1370 1000 / 1000 Weight 96.9 kg Intake: IV 1075 / 1075 2150 / 2150 1000 / 1000 D5W/LR Inj 1,000 ML @ 125 mls/ 875 / 875 1750 / 1750 1000 / 1000 hr IV.CONT .Q8H LEE Rx#: [id number] Diflucan 400 mg Premix Bag 200 200 / 200 ML @ 100 mls/hr IV.SIG Q24H LEE Rx#:[id number] Zosyn 4.5 GM Premix 4.5 gm In 200 / 200 200 / 200 100 ml @ 200 mls/hr IV.SIG Q6H LEE Rx#:[id number] Output: Urine 1400 / 1400 750 / 750 Wound Drainage 60 / 60 30 / 30 # 1 Abdomen SAURAV Drain 60 / 60 30 / 30 Other: # Voids 5 Narrative: General patient in no acute distress HEENT extraocular movements are intact, clear oropharyngeal mucosa, no JVD Cardiovascular S1-S2 audible, RRR, no murmurs rubs or gallops Respiratory clear to auscultation bilaterally Abdomen soft, pain mostly in the right upper quadrant where the drain is in place. Normal bowel sounds. Patient states he is passing gas. Extremities no edema 2+ distal pulses in bilateral upper and lower extremities Neuro cranial nerves II through XII intact Results - Labs CBC & Chem 7: 03/16/18 06:15 03/16/18 06:15 Laboratory Results - last 24 hr 03/15/18 03/15/18 03/15/18 04:12 18:00 20:02 WBC RBC Hgb Hct MCV MCH MCHC RDW Plt Count MPV Neut % (Auto) Lymph % (Auto) [place] % (Auto) Eos % (Auto) Baso % (Auto) Neut # (Auto) Lymph # (Auto) [place] # (Auto) Eos # (Auto) Baso # (Auto) WBC Differential Differential Comment Sodium Potassium Chloride Carbon Dioxide Anion Gap BUN Creatinine Estimated GFR Random Glucose Calcium Phosphorus Magnesium Iron 19 L TIBC 333 % Saturation 5.7 L Ferritin 416 H Total Bilirubin Direct Bilirubin Indirect Bilirubin AST ALT Alkaline Phosphatase Total Protein Albumin Tumor Marker AFP Urine Opiates Screen Pos H Ur Barbiturates Screen Neg Ur Amphetamines Screen Neg U Benzodiazepines Scrn Neg Urine Cocaine Screen Neg U Cannabinoids Screen Neg Hepatitis A IgM Ab Nonreactive Hep Bs Antigen Nonreactive Hep B Core IgM Ab Nonreactive Hep C IgG Ab Nonreactive 03/16/18 03/16/18 03/16/18 06:15 06:15 06:15 WBC 17.3 H RBC 4.46 L Hgb 13.9 Hct 41.6 MCV 93.3 MCH 31.2 MCHC 33.5 RDW 13.2 Plt Count 188 MPV 9.7 Neut % (Auto) 92.6 H Lymph % (Auto) 4.5 L [place] % (Auto) 2.8 Eos % (Auto) 0.0 Baso % (Auto) 0.1 Neut # (Auto) 16.0 H Lymph # (Auto) 0.8 L [place] # (Auto) 0.5 Eos # (Auto) 0.0 Baso # (Auto) 0.0 WBC Differential . Differential Comment Auto diff final Sodium 140 Potassium 3.6 Chloride 102 Carbon Dioxide 32.0 Anion Gap 6 BUN 10 Creatinine 1.02 Estimated GFR 86 L Random Glucose 120 H Calcium 8.9 Phosphorus 1.8 L Magnesium 2.4 Iron TIBC % Saturation Ferritin Total Bilirubin 0.8 Direct Bilirubin 0.4 H Indirect Bilirubin 0.4 AST 24 ALT 60 Alkaline Phosphatase 74 Total Protein 7.3 D Albumin 3.0 L D Tumor Marker AFP 1.9 Urine Opiates Screen Ur Barbiturates Screen Ur Amphetamines Screen U Benzodiazepines Scrn Urine Cocaine Screen U Cannabinoids Screen Hepatitis A IgM Ab Hep Bs Antigen Hep B Core IgM Ab Hep C IgG Ab Microbiology 03/14/18 20:46 Fluid - Other Gram Stain - Final 03/14/18 20:46 Fluid - Other Wound Culture - Preliminary Results Pending - Imaging Impressions Abdomen X-Ray 03/16/18 00:00 CONCLUSION: No significant ileus or free air. Assessment and Plan - Plan This patient is a 32-year-old male with no known significant past medical history who presented to our emergency department after having a couple of days of severe abdominal pain. Imaging showed findings consistent with appendicitis. Patient was admitted and evaluated by the surgical team. Laparotomy subsequently showed findings consistent with bowel inflammation consistent with inflammatory bowel disease. 1. Sepsis secondary to ileal enteritis. 2. Suspected Crohn's exacerbation The patient states he feels much better than his initial admission date. WBC count is downtrending currently at 17,000. Continue IV fluids IV steroids Cultures from the laparotomy are currently pending. Continue broad-spectrum antibiotics as well as antifungals as per infectious disease recommendations. Will follow up with recommendations from gastroenterology. SAURAV drain in place. Continue pain medication. We will advance the patient's diet once it is okay with surgery and GI. 3. Alcoholic related fatty liver disease. Patient with history of heavy drinking of alcohol as well as sweetened sodas. Currently no signs of withdrawals. Withdrawals in the past. Patient advised to stop drinking. We will continue to monitor the patient for withdrawals.
--- NOTE | 2018-03-16 11:58 | P.PNGS ---
Subjective Interval history: Seen about 7AM Resting in bed No issues overnight Going to try full liquids this morning Tolerating liquids without difficulty Physical Exam Vital signs: Vital Signs 03/15/18 12:00 03/15/18 14:26 03/15/18 16:00 Temperature 97.7 F 98.6 F Pulse Rate 65 82 Respiratory Rate 18 18 20 Blood Pressure 111/65 130/82 Pulse Oximetry 96 98 03/15/18 18:09 03/15/18 20:00 03/16/18 00:00 Temperature 98.6 F 97.9 F Pulse Rate 86 89 Respiratory Rate 16 18 18 Blood Pressure 127/71 130/74 Pulse Oximetry 92 L 94 L 03/16/18 04:00 03/16/18 08:00 Temperature 98.0 F Pulse Rate 84 Respiratory Rate 18 18 Blood Pressure 131/80 Pulse Oximetry 92 L Intake & Output 03/15/18 03/16/18 03/16/18 18:59 06:59 18:59 Intake Total 1075 / 1075 2150 / 2150 1000 / 1000 Output Total 1460 / 1460 780 / 780 Balance -385 / -385 1370 / 1370 1000 / 1000 Weight 96.9 kg Intake: IV 1075 / 1075 2150 / 2150 1000 / 1000 D5W/LR Inj 1,000 ML @ 125 mls/ 875 / 875 1750 / 1750 1000 / 1000 hr IV.CONT .Q8H LEE Rx#: [id number] Diflucan 400 mg Premix Bag 200 200 / 200 ML @ 100 mls/hr IV.SIG Q24H LEE Rx#:[id number] Zosyn 4.5 GM Premix 4.5 gm In 200 / 200 200 / 200 100 ml @ 200 mls/hr IV.SIG Q6H LEE Rx#:[id number] Output: Urine 1400 / 1400 750 / 750 Wound Drainage 60 / 60 30 / 30 # 1 Abdomen SAURAV Drain 60 / 60 30 / 30 Other: # Voids 5 Narrative: Alert and awake Abd: soft; minimally tender to palpation; lap sites c/d/i; SAURAV with sanguinous cloudy fluid but less cloudy than yesterday Results - Labs 03/16/18 06:15 03/16/18 06:15 Laboratory Results - last 24 hr 03/15/18 03/15/18 03/15/18 04:12 18:00 20:02 WBC RBC Hgb Hct MCV MCH MCHC RDW Plt Count MPV Neut % (Auto) Lymph % (Auto) [place] % (Auto) Eos % (Auto) Baso % (Auto) Neut # (Auto) Lymph # (Auto) [place] # (Auto) Eos # (Auto) Baso # (Auto) WBC Differential Differential Comment Sodium Potassium Chloride Carbon Dioxide Anion Gap BUN Creatinine Estimated GFR Random Glucose Calcium Phosphorus Magnesium Iron 19 L TIBC 333 % Saturation 5.7 L Ferritin 416 H Total Bilirubin Direct Bilirubin Indirect Bilirubin AST ALT Alkaline Phosphatase Total Protein Albumin Tumor Marker AFP Urine Opiates Screen Pos H Ur Barbiturates Screen Neg Ur Amphetamines Screen Neg U Benzodiazepines Scrn Neg Urine Cocaine Screen Neg U Cannabinoids Screen Neg Hepatitis A IgM Ab Nonreactive Hep Bs Antigen Nonreactive Hep B Core IgM Ab Nonreactive Hep C IgG Ab Nonreactive 03/16/18 03/16/18 03/16/18 06:15 06:15 06:15 WBC 17.3 H RBC 4.46 L Hgb 13.9 Hct 41.6 MCV 93.3 MCH 31.2 MCHC 33.5 RDW 13.2 Plt Count 188 MPV 9.7 Neut % (Auto) 92.6 H Lymph % (Auto) 4.5 L [place] % (Auto) 2.8 Eos % (Auto) 0.0 Baso % (Auto) 0.1 Neut # (Auto) 16.0 H Lymph # (Auto) 0.8 L [place] # (Auto) 0.5 Eos # (Auto) 0.0 Baso # (Auto) 0.0 WBC Differential . Differential Comment Auto diff final Sodium 140 Potassium 3.6 Chloride 102 Carbon Dioxide 32.0 Anion Gap 6 BUN 10 Creatinine 1.02 Estimated GFR 86 L Random Glucose 120 H Calcium 8.9 Phosphorus 1.8 L Magnesium 2.4 Iron TIBC % Saturation Ferritin Total Bilirubin 0.8 Direct Bilirubin 0.4 H Indirect Bilirubin 0.4 AST 24 ALT 60 Alkaline Phosphatase 74 Total Protein 7.3 D Albumin 3.0 L D Tumor Marker AFP 1.9 Urine Opiates Screen Ur Barbiturates Screen Ur Amphetamines Screen U Benzodiazepines Scrn Urine Cocaine Screen U Cannabinoids Screen Hepatitis A IgM Ab Hep Bs Antigen Hep B Core IgM Ab Hep C IgG Ab - Imaging Imaging: ITS Impressions Abdomen/Pelvis CT 03/14/18 15:41 CONCLUSION: 1. Acute appendicitis without abscess or rupture. 2. Enteritis and colitis, most severely involving the ileum and of concern for underlying Crohn's disease. 3. Enlarged and fatty infiltrated liver. 4. Tiny nonobstructing stone of the left kidney. Abdomen X-Ray 03/16/18 00:00 CONCLUSION: No significant ileus or free air. Assessment and Plan - Assessment (1) Enteritis Code(s): K52.9 - Noninfective gastroenteritis and colitis, unspecified Status : Acute (2) Abdominal pain Code(s): R10.9 - Unspecified abdominal pain Status: Acute Plan: 32 year old male with abdominal pain; POD2 Diagnostic laparoscopy; Gram stain, culture and sensitivity of peritoneal fluid; Biopsy ileal mesentery -Await biopsies---suspicious for Crohn's disease -Cultures of peritoneal fluid obtained---await results--ID following -Continue full liquids -GI following -Discussed with KYLE Amos at bedside Will check whether GI svc wishes to proceed with colonoscopy prior to discharge , or proceed as outpatient. The exam, history, and the medical decision-making described in the above note were completed with the assistance of the mid-level provider. I reviewed and agree with the findings presented. I attest that I had a [id number] encounter with the patient on the same day, and personally performed and documented my assessment and findings in the medical record.
[2018-03-16] MEDS ORDERED: Sodium Chloride 0.9% 2 ML Flush PRN IV.FLUSH (14:13)
--- NOTE | 2018-03-16 15:23 | P.PNGI ---
Subjective Interval history: Resting in the bed states he is feeling much better today no nausea no vomiting tolerating full liquid diet No abdominal pain status post appendectomy Physical Exam Vital signs: Vital Signs 03/15/18 16:00 03/15/18 18:09 03/15/18 20:00 Temperature 98.6 F 98.6 F Pulse Rate 82 86 Respiratory Rate 20 16 18 Blood Pressure 130/82 127/71 Pulse Oximetry 98 92 L 03/16/18 00:00 03/16/18 04:00 03/16/18 08:00 Temperature 97.9 F 98.0 F Pulse Rate 89 84 Respiratory Rate 18 18 18 Blood Pressure 130/74 131/80 Pulse Oximetry 94 L 92 L 03/16/18 12:00 Temperature 97.3 F L Pulse Rate 77 Respiratory Rate 19 Blood Pressure 144/76 H Pulse Oximetry 90 L Intake & Output 03/15/18 03/16/18 03/16/18 18:59 06:59 18:59 Intake Total 1075 / 1075 2150 / 2150 1100 / 1100 Output Total 1460 / 1460 780 / 780 Balance -385 / -385 1370 / 1370 1100 / 1100 Weight 96.9 kg Intake: IV 1075 / 1075 2150 / 2150 1100 / 1100 D5W/LR Inj 1,000 ML @ 125 mls/ 875 / 875 1750 / 1750 1000 / 1000 hr IV.CONT .Q8H LEE Rx#: [id number] Diflucan 400 mg Premix Bag 200 200 / 200 ML @ 100 mls/hr IV.SIG Q24H LEE Rx#:[id number] Zosyn 4.5 GM Premix 4.5 gm In 200 / 200 200 / 200 100 / 100 100 ml @ 200 mls/hr IV.SIG Q6H LEE Rx#:[id number] Output: Urine 1400 / 1400 750 / 750 Wound Drainage 60 / 60 30 / 30 # 1 Abdomen SAURAV Drain 60 / 60 30 / 30 Other: # Voids 5 - Constitutional no acute distress, obese, cooperative - Routine HEENT Exam Head: Present: normocephalic ENT: Present: mucous membranes moist - Routine Neck Exam Present: supple - Routine Respiratory Exam Present: accessory muscle use (No obvious shortness of breath, encouraged to turn cough and deep breathe) - Routine Abdominal Exam Present: soft, normoactive bowel sounds (Soft no nausea no vomiting no obvious distention, no abdominal pain at rest) - Routine Skin Exam Present: intact - Routine Neurological Exam Present: alert (Answer simple questions appropriately) Results - Labs CBC & Chem 7: 03/16/18 06:15 03/16/18 06:15 Laboratory Results - last 24 hr 03/15/18 03/15/18 03/15/18 04:12 18:00 20:02 WBC RBC Hgb Hct MCV MCH MCHC RDW Plt Count MPV Neut % (Auto) Lymph % (Auto) [place] % (Auto) Eos % (Auto) Baso % (Auto) Neut # (Auto) Lymph # (Auto) [place] # (Auto) Eos # (Auto) Baso # (Auto) WBC Differential Differential Comment Sodium Potassium Chloride Carbon Dioxide Anion Gap BUN Creatinine Estimated GFR Random Glucose Calcium Phosphorus Magnesium Iron 19 L TIBC 333 % Saturation 5.7 L Ferritin 416 H Total Bilirubin Direct Bilirubin Indirect Bilirubin AST ALT Alkaline Phosphatase Total Protein Albumin Tumor Marker AFP Urine Opiates Screen Pos H Ur Barbiturates Screen Neg Ur Amphetamines Screen Neg U Benzodiazepines Scrn Neg Urine Cocaine Screen Neg U Cannabinoids Screen Neg Hepatitis A IgM Ab Nonreactive Hep Bs Antigen Nonreactive Hep B Core IgM Ab Nonreactive Hep C IgG Ab Nonreactive 03/16/18 03/16/18 03/16/18 06:15 06:15 06:15 WBC 17.3 H RBC 4.46 L Hgb 13.9 Hct 41.6 MCV 93.3 MCH 31.2 MCHC 33.5 RDW 13.2 Plt Count 188 MPV 9.7 Neut % (Auto) 92.6 H Lymph % (Auto) 4.5 L [place] % (Auto) 2.8 Eos % (Auto) 0.0 Baso % (Auto) 0.1 Neut # (Auto) 16.0 H Lymph # (Auto) 0.8 L [place] # (Auto) 0.5 Eos # (Auto) 0.0 Baso # (Auto) 0.0 WBC Differential . Differential Comment Auto diff final Sodium 140 Potassium 3.6 Chloride 102 Carbon Dioxide 32.0 Anion Gap 6 BUN 10 Creatinine 1.02 Estimated GFR 86 L Random Glucose 120 H Calcium 8.9 Phosphorus 1.8 L Magnesium 2.4 Iron TIBC % Saturation Ferritin Total Bilirubin 0.8 Direct Bilirubin 0.4 H Indirect Bilirubin 0.4 AST 24 ALT 60 Alkaline Phosphatase 74 Total Protein 7.3 D Albumin 3.0 L D Tumor Marker AFP 1.9 Urine Opiates Screen Ur Barbiturates Screen Ur Amphetamines Screen U Benzodiazepines Scrn Urine Cocaine Screen U Cannabinoids Screen Hepatitis A IgM Ab Hep Bs Antigen Hep B Core IgM Ab Hep C IgG Ab Microbiology 03/14/18 20:46 Fluid - Other Gram Stain - Final 03/14/18 20:46 Fluid - Other Wound Culture - Preliminary gram negative rods - Imaging Impressions Abdomen X-Ray 03/16/18 00:00 CONCLUSION: No significant ileus or free air. Assessment and Plan - Plan This is a well-nourished 32-year-old male who came to the hospital on 03/14/2018 with acute appendicitis. Patient is status post diagnostic laparotomy with SAURAV drain placement showing red cloudy drainage. Surgery was performed per Dr. Dave and patient is currently being managed in the intensive care setting. Patient also noted right upper mid and lower quadrant pain as his focus but does note generalized abdominal pain also over the past 2 days. Aggregating factor appears to be 2 sausages with spicy sauce but also notes other aggregating factors as red sauce over the past year. Patient has noted some chronic nausea more related to car sickness or positional but denies any vomiting. Patient denies any rashes joint pain or wall ulcers and is not been on any blood thinners. Current labs evaluated are WBC count which initially was 24.5 now 18.5, hemoglobin 15.3. Patient denies any family history of colon cancer or any Crohn 's disease or inflammatory diseases. Mother is currently at his bedside and assisting with family history. Patient does note recent right inguinal hernia repair 3 months ago and jaw fracture repair 6 months ago but states that before surgeries patient was working out and had no signs of any obvious abdominal pain. CT scan now shows acute appendicitis without rupture or abscess. Enteritis and colitis most severely involving the ileum and of concern for underlying Crohn's disease. Also noted is enlarged and fatty liver and tiny nonobstructing stone in the left kidney. Gastroenterology was consulted to assist with possible diagnosis of Crohn's disease. Patient is awake and a fair to good historian. New onset Crohn's disease noted per CT scan with inner hiatus and colitis most severely involving the ileum Hepatomegaly and enlarged fatty liver Status post laparotomy for acute appendicitis. Currently patient has absent bowel sounds and is not passing any gas. Notes minimal abdominal discomfort and tenderness which seems to be related to surgery. Biopsies are pending Will need to monitor for possible ileus postop 03/16/2018, patient denies any acute abdominal pain some mild soreness with turning. Tolerating full liquids without any nausea vomiting appetite has returned and patient is hungry. Bowel sounds are active, no obvious nausea or vomiting. Liver workup labs beginning to come back otherwise pending current bilirubin 0.8, AST 24 ALT 60 normal, alpha-fetoprotein 1.9, hemoglobin 13.9 no obvious bleeding, Patient will need to be seen and evaluated in the GI office on an outpatient basis when he is stable for discharge. We will then review biopsies and evaluate plan of care. Abdominal x-rays this a.m. show no significant ileus. Leukocytosis 17.3, patient is status post acute appendicitis with possible enteritis and colitis. Now the patient is tolerating p.o. fluids should be able to transition medicines to p.o. Plan Diet full liquids and tolerated well, will trial soft cardiac diet in a.m. Biopsies pending Diflucan, Zosyn, Solu-Medrol Some of liver workup labs pending Supportive care Patient was seen per myself and Dr. Tinajero, note was written on his behalf
[2018-03-16 16:05] LABS: Hemoglobin A1c 4.9 % (4.3-6.0)
[2018-03-16] MEDS: Sodium Chloride 0.9% 2 ML Flush BID IV.FLUSH SCH (20:25)
[2018-03-17] MEDS: Morphine Inj 4 MG/ML Vial IV.PUSH PRN ×2 (02:05→08:32)
[2018-03-17] MEDS: Piperacil/Tazo 4.5 GM Premix 4.5 GM/100 ML BAG IV.SIG SCH ×2 (02:06→08:33)
[2018-03-17] MEDS: MethylPREDNISolone Sod Succinate Inj 40 MG/ML Vial IV.PUSH SCH ×2 (02:07→15:05)
[2018-03-17] MEDS: Dextrose 5%/Lactated Ringer's 1,000 ML IV.CONT SCH (06:21)
[2018-03-17 07:53] LABS: Hematocrit 40.5 % (39.0-51.0); Hemoglobin 14.3 gm/dL (13.0-17.0); Lymph % (Auto) 6.6 % (9.0-44.0); Mean Corpuscular HGB Conc 35.3 % (32.0-36.0); Mean Corpuscular Hemoglobin 32.3 pg (27.0-34.0); Mean Corpuscular Volume 91.3 fL (80.0-100.0); Mean Platelet Volume 9.4 fL (7.0-11.0); Mono # (Auto) 0.8 th/mm3 (0.0-0.9); Mono % (Auto) 4.9 % (0.0-8.0); Neut % (Auto) 88.5 % (16.0-70.0); Platelet Count 236 th/mm3 (150-450); Red Blood Count 4.43 mil/mm3 (4.50-5.90); White Blood Count 15.8 th/mm3 (4.0-11.0)
--- NOTE | 2018-03-17 11:03 | P.PNGS ---
Subjective Interval history: Resting in bed No issues Tolerated regular diet Physical Exam Vital signs: Vital Signs 03/16/18 12:00 03/16/18 16:00 03/16/18 19:39 Temperature 97.3 F L 97.9 F 97.8 F Pulse Rate 77 89 84 Respiratory Rate 19 17 16 Blood Pressure 144/76 H 131/85 136/81 Pulse Oximetry 90 L 90 L 89 L 03/17/18 00:00 03/17/18 04:00 03/17/18 08:00 Temperature 98.2 F 98.3 F Pulse Rate 77 55 L Respiratory Rate 16 15 18 Blood Pressure 147/81 H 132/75 Pulse Oximetry 92 L 92 L Intake & Output 03/16/18 03/17/18 03/17/18 18:59 06:59 18:59 Intake Total 4550 / 4550 1600 / 1600 Output Total 1220 / 1220 600 / 600 Balance 3330 / 3330 1000 / 1000 Weight 97.8 kg Intake: IV 1200 / 1200 400 / 400 D5W/LR Inj 1,000 ML @ 125 mls/ 1000 / 1000 hr IV.CONT .Q8H LEE Rx#: [id number] Diflucan 400 mg Premix Bag 200 200 / 200 ML @ 100 mls/hr IV.SIG Q24H LEE Rx#:[id number] Zosyn 4.5 GM Premix 4.5 gm In 200 / 200 200 / 200 100 ml @ 200 mls/hr IV.SIG Q6H LEE Rx#:[id number] Oral 1350 / 1350 1200 / 1200 Anesthesia Amount 2000 / 2000 Output: Urine 950 / 950 600 / 600 Estimated Blood Loss 30 / 30 Wound Drainage 240 / 240 # 1 Abdomen Michael 210 / 210 # 1 Abdomen SAURAV Drain 30 / 30 Other: # Voids 5 # Bowel Movements 0 Narrative: Resting in bed Abd: soft minimally tender; SAURAV with serous mildly cloudy fluid Results - Labs 03/18/18 03:55 03/16/18 06:15 Laboratory Results - last 24 hr 03/16/18 03/17/18 06:15 05:43 WBC 15.8 H RBC 4.43 L Hgb 14.3 Hct 40.5 MCV 91.3 MCH 32.3 MCHC 35.3 RDW 13.0 Plt Count 236 MPV 9.4 Neut % (Auto) 88.5 H Lymph % (Auto) 6.6 L [place] % (Auto) 4.9 Eos % (Auto) 0.0 Baso % (Auto) 0.0 Neut # (Auto) 14.0 H Lymph # (Auto) 1.0 [place] # (Auto) 0.8 Eos # (Auto) 0.0 Baso # (Auto) 0.0 WBC Differential . Differential Comment Auto diff final Hemoglobin A1c 4.9 - Imaging Imaging: ITS Impressions Abdomen/Pelvis CT 03/14/18 15:41 CONCLUSION: 1. Acute appendicitis without abscess or rupture. 2. Enteritis and colitis, most severely involving the ileum and of concern for underlying Crohn's disease. 3. Enlarged and fatty infiltrated liver. 4. Tiny nonobstructing stone of the left kidney. Abdomen X-Ray 03/16/18 00:00 CONCLUSION: No significant ileus or free air. Assessment and Plan - Assessment (1) Enteritis Code(s): K52.9 - Noninfective gastroenteritis and colitis, unspecified Status : Acute (2) Abdominal pain Code(s): R10.9 - Unspecified abdominal pain Status: Acute Plan: 32 year old male with abdominal pain; POD2 Diagnostic laparoscopy; Gram stain, culture and sensitivity of peritoneal fluid; Biopsy ileal mesentery -Biopsy results back---inconclusive for Crohn's disease ---GI to continue workup as outpatient -Cultures of peritoneal fluid obtained---ID following -Tolerated regular diet -Pain control---adjusted regiment Pain better; still with cloudy SAURAV output Stable Transfer to floor The exam, history, and the medical decision-making described in the above note were completed with the assistance of the mid-level provider. I reviewed and agree with the findings presented. I attest that I had a [id number] encounter with the patient on the same day, and personally performed and documented my assessment and findings in the medical record.
[2018-03-17] MEDS: Sodium Chloride 0.9% 2 ML Flush BID IV.FLUSH SCH ×3 (11:45→21:03)
--- NOTE | 2018-03-17 11:50 | P.PNIM ---
Subjective Interval history: The patient is not in any acute distress. He is tolerating a p.o. diet. Has mild pain in the right upper quadrant. Physical Exam Vital signs: Vital Signs 03/16/18 12:00 03/16/18 16:00 03/16/18 19:39 Temperature 97.3 F L 97.9 F 97.8 F Pulse Rate 77 89 84 Respiratory Rate 19 17 16 Blood Pressure 144/76 H 131/85 136/81 Pulse Oximetry 90 L 90 L 89 L 03/17/18 00:00 03/17/18 04:00 03/17/18 08:00 Temperature 98.2 F 98.3 F Pulse Rate 77 55 L Respiratory Rate 16 15 18 Blood Pressure 147/81 H 132/75 Pulse Oximetry 92 L 92 L Intake & Output 03/16/18 03/17/18 03/17/18 18:59 06:59 18:59 Intake Total 4550 / 4550 1600 / 1600 Output Total 1220 / 1220 600 / 600 Balance 3330 / 3330 1000 / 1000 Weight 97.8 kg Intake: IV 1200 / 1200 400 / 400 D5W/LR Inj 1,000 ML @ 125 mls/ 1000 / 1000 hr IV.CONT .Q8H [facility] Rx#: [id number] Diflucan 400 mg Premix Bag 200 200 / 200 ML @ 100 mls/hr IV.SIG Q24H [facility] Rx#:[id number] Zosyn 4.5 GM Premix 4.5 gm In 200 / 200 200 / 200 100 ml @ 200 mls/hr IV.SIG Q6H [facility] Rx#:[id number] Oral 1350 / 1350 1200 / 1200 Anesthesia Amount 2000 / 2000 Output: Urine 950 / 950 600 / 600 Estimated Blood Loss 30 / 30 Wound Drainage 240 / 240 # 1 Abdomen Michael 210 / 210 # 1 Abdomen SAURAV Drain 30 / 30 Other: # Voids 5 # Bowel Movements 0 Narrative: General patient in no acute distress HEENT extraocular movements are intact, clear oropharyngeal mucosa, no JVD Cardiovascular S1-S2 audible, RRR, no murmurs rubs or gallops Respiratory clear to auscultation bilaterally Abdomen soft, pain mostly in the right upper quadrant where the drain is in place. Normal bowel sounds. Patient states he is passing gas. Extremities no edema 2+ distal pulses in bilateral upper and lower extremities Neuro cranial nerves II through XII intact Results - Labs CBC & Chem 7: 03/17/18 05:43 03/16/18 06:15 Laboratory Results - last 24 hr 03/16/18 03/17/18 06:15 05:43 WBC 15.8 H RBC 4.43 L Hgb 14.3 Hct 40.5 MCV 91.3 MCH 32.3 MCHC 35.3 RDW 13.0 Plt Count 236 MPV 9.4 Neut % (Auto) 88.5 H Lymph % (Auto) 6.6 L [place] % (Auto) 4.9 Eos % (Auto) 0.0 Baso % (Auto) 0.0 Neut # (Auto) 14.0 H Lymph # (Auto) 1.0 [place] # (Auto) 0.8 Eos # (Auto) 0.0 Baso # (Auto) 0.0 WBC Differential . Differential Comment Auto diff final Hemoglobin A1c 4.9 Microbiology 03/14/18 20:46 Fluid - Other Gram Stain - Final 03/14/18 20:46 Fluid - Other Wound Culture - Final Escherichia coli ESBL positive Beta Strep not A,B or D Assessment and Plan - Plan This patient is a 32-year-old male with no known significant past medical history who presented to our emergency department after having a couple of days of severe abdominal pain. Imaging showed findings consistent with appendicitis. Patient was admitted and evaluated by the surgical team. Laparotomy subsequently showed findings consistent with bowel inflammation consistent with inflammatory bowel disease. 1. Sepsis secondary to ileal enteritis status post drainage of intra-abdominal abscess. 2. Suspected Crohn's exacerbation The patient states he feels much better than his initial admission date. WBC count is downtrending currently but currently around 50,000. Afebrile overnight. Culture from the abscess drainage is positive for ESBL E. coli. IV antibiotics switched to Invanz. I will follow-up with infectious disease for further recommendations. Continue IV fluids IV steroids Will follow up with recommendations from gastroenterology and surgery SAURAV drain in place. Continue pain medication. Patient tolerating p.o. diet. 3. Alcoholic related fatty liver disease. Patient with history of heavy drinking of alcohol as well as sweetened sodas. Currently no signs of withdrawals. Withdrawals in the past. Patient advised to stop drinking. We will continue to monitor the patient for withdrawals.
--- NOTE | 2018-03-17 12:58 | P.PNGI ---
Subjective Interval history: Resting in bed sitting up. Post appendectomy, denies nausea vomiting states tolerating regular meal well. Reports abdominal discomfort with movement. SAURAV drain in place. <Millie Rodriguez - Last Filed: 03/17/18 12:34> Physical Exam Vital signs: Vital Signs 03/16/18 16:00 03/16/18 19:39 03/17/18 00:00 Temperature 97.9 F 97.8 F 98.2 F Pulse Rate 89 84 77 Respiratory Rate 17 16 16 Blood Pressure 131/85 136/81 147/81 H Pulse Oximetry 90 L 89 L 92 L 03/17/18 04:00 03/17/18 08:00 03/17/18 12:00 Temperature 98.3 F 98.1 F Pulse Rate 55 L 71 Respiratory Rate 15 18 17 Blood Pressure 132/75 145/72 H Pulse Oximetry 92 L 87 L Intake & Output 03/16/18 03/17/18 03/17/18 18:59 06:59 18:59 Intake Total 4550 / 4550 1600 / 1600 1000 / 1000 Output Total 1220 / 1220 600 / 600 Balance 3330 / 3330 1000 / 1000 1000 / 1000 Weight 97.8 kg Intake: IV 1200 / 1200 400 / 400 1000 / 1000 D5W/LR Inj 1,000 ML @ 125 mls/ 1000 / 1000 900 / 900 hr IV.CONT .Q8H [facility] Rx#: [id number] Diflucan 400 mg Premix Bag 200 200 / 200 ML @ 100 mls/hr IV.SIG Q24H [facility] Rx#:[id number] Zosyn 4.5 GM Premix 4.5 gm In 200 / 200 200 / 200 100 / 100 100 ml @ 200 mls/hr IV.SIG Q6H [facility] Rx#:[id number] Oral 1350 / 1350 1200 / 1200 Anesthesia Amount 2000 / 2000 Output: Urine 950 / 950 600 / 600 Estimated Blood Loss 30 / 30 Wound Drainage 240 / 240 # 1 Abdomen Michael 210 / 210 # 1 Abdomen SAURAV Drain 30 / 30 Other: # Voids 5 # Bowel Movements 0 - Constitutional no acute distress - Routine HEENT Exam Head: Present: normocephalic - Routine Respiratory Exam Present: CTA bilaterally. Absent: accessory muscle use - Routine Cardiovascular Exam Present: RRR - Routine Abdominal Exam Present: soft, distended. Absent: guarding, firm, rigid Comments: mildly distended. patient states passing gas and moved bowels twice yesterday and once today. States bms are soft with no noted bleeding or pain. SAURAV drain noted with ~30 ml light wandy drainage. - Routine Extremities Exam Present: full ROM, pulses intact. Absent: edema - Routine Skin Exam Present: dry, warm - Routine Neurological Exam Present: alert, oriented X3 - Detailed Neurological Exam: Coma Scale Eye Opening: Spontaneous Verbal Response: Oriented Motor Response: Obey commands [place] Coma Scale Total: 15 - Routine Psychiatric Exam Present: normal affect, cooperative <Rodriguez,Millie - Last Filed: 03/17/18 12:34> Vital signs: Vital Signs 03/16/18 19:39 03/17/18 00:00 03/17/18 04:00 Temperature 97.8 F 98.2 F Pulse Rate 84 77 Respiratory Rate 16 16 15 Blood Pressure 136/81 147/81 H Pulse Oximetry 89 L 92 L 03/17/18 08:00 03/17/18 12:00 03/17/18 16:00 Temperature 98.3 F 98.1 F 98.2 F Pulse Rate 55 L 71 81 Respiratory Rate 18 17 18 Blood Pressure 132/75 145/72 H 160/101 H Pulse Oximetry 92 L 87 L 94 L Intake & Output 03/16/18 03/17/18 03/17/18 18:59 06:59 18:59 Intake Total 4550 / 4550 1600 / 1600 1100 / 1100 Output Total 1220 / 1220 600 / 600 Balance 3330 / 3330 1000 / 1000 1100 / 1100 Weight 97.8 kg Intake: IV 1200 / 1200 400 / 400 1100 / 1100 D5W/LR Inj 1,000 ML @ 125 mls/ 1000 / 1000 900 / 900 hr IV.CONT .Q8H [facility] Rx#: [id number] INVanz Inj 1,000 MG In NS Inj 100 / 100 100 ML @ 200 mls/hr IV.SIG Q24H [facility] Rx#:[id number] Diflucan 400 mg Premix Bag 200 200 / 200 ML @ 100 mls/hr IV.SIG Q24H [facility] Rx#:[id number] Zosyn 4.5 GM Premix 4.5 gm In 200 / 200 200 / 200 100 / 100 100 ml @ 200 mls/hr IV.SIG Q6H [facility] Rx#:[id number] Oral 1350 / 1350 1200 / 1200 Anesthesia Amount 1999 / 1999 Output: Urine 950 / 950 600 / 600 Estimated Blood Loss Wound Drainage 240 / 240 # 1 Abdomen Michael 210 / 210 # 1 Abdomen SAURAV Drain Other: # Voids 5 # Bowel Movements 0 <Tae Tinajero - Last Filed: 03/17/18 17:14> Results - Labs CBC & Chem 7: 03/17/18 05:43 03/16/18 06:15 Laboratory Results - last 24 hr 03/16/18 03/17/18 06:15 05:43 WBC 15.8 H RBC 4.43 L Hgb 14.3 Hct 40.5 MCV 91.3 MCH 32.3 MCHC 35.3 RDW 13.0 Plt Count 236 MPV 9.4 Neut % (Auto) 88.5 H Lymph % (Auto) 6.6 L [place] % (Auto) 4.9 Eos % (Auto) 0.0 Baso % (Auto) 0.0 Neut # (Auto) 14.0 H Lymph # (Auto) 1.0 [place] # (Auto) 0.8 Eos # (Auto) 0.0 Baso # (Auto) 0.0 WBC Differential . Differential Comment Auto diff final Hemoglobin A1c 4.9 Microbiology 03/14/18 20:46 Fluid - Other Gram Stain - Final 03/14/18 20:46 Fluid - Other Wound Culture - Final Escherichia coli ESBL positive Beta Strep not A,B or D <Millie Rodriguez - Last Filed: 03/17/18 12:34> - Labs CBC & Chem 7: 03/17/18 05:43 03/16/18 06:15 Laboratory Results - last 24 hr 03/16/18 03/16/18 03/17/18 06:15 06:15 05:43 WBC 15.8 H RBC 4.43 L Hgb 14.3 Hct 40.5 MCV 91.3 MCH 32.3 MCHC 35.3 RDW 13.0 Plt Count 236 MPV 9.4 Neut % (Auto) 88.5 H Lymph % (Auto) 6.6 L [place] % (Auto) 4.9 Eos % (Auto) 0.0 Baso % (Auto) 0.0 Neut # (Auto) 14.0 H Lymph # (Auto) 1.0 [place] # (Auto) 0.8 Eos # (Auto) 0.0 Baso # (Auto) 0.0 WBC Differential . Differential Comment Auto diff final Hemoglobin A1c 4.9 Anti-Smooth Muscle Ab Negative Microbiology 03/14/18 20:46 Fluid - Other Gram Stain - Final 03/14/18 20:46 Fluid - Other Wound Culture - Final Escherichia coli ESBL positive Beta Strep not A,B or D <Tae Tinajero - Last Filed: 03/17/18 17:14> Assessment and Plan - Plan 03/16/2018, patient denies any acute abdominal pain some mild soreness with turning. Tolerating full liquids without any nausea vomiting appetite has returned and patient is hungry. Bowel sounds are active, no obvious nausea or vomiting. Liver workup labs beginning to come back otherwise pending current bilirubin 0.8, AST 24 ALT 60 normal, alpha-fetoprotein 1.9, hemoglobin 13.9 no obvious bleeding, Patient will need to be seen and evaluated in the GI office on an outpatient basis when he is stable for discharge. We will then review biopsies and evaluate plan of care. Abdominal x-rays this a.m. show no significant ileus. Leukocytosis 17.3, patient is status post acute appendicitis with possible enteritis and colitis. Now the patient is tolerating p.o. fluids should be able to transition medicines to p.o. 03/17/18-Ileal biopsy pathology noted-Final Diagnosis : FIBROADIPOSE TISSUE WITH SURFACE EXUDATE, CLINICALLY ILEAL MESENTERY. Inconclusive for the diagnosis of Crohn's disease. Will repeat imaging in a few weeks to reassess. We will continue to monitor closely. AM labs reveal WBC 15.8 trending downwards- patient is post acute appendicitis with possible enteritis, hemoglobin 14.3 hematocrit 40.5. Plan: Cardiac diet as tolerated Continue IV antibiotics Continue to monitor labs Immunology pending Supportive care Further recommendations to follow This patient has been seen by myself and Dr. Tinajero and this note is written on his behalf - Attending Attestation Dr. Tinajero <Millie Rodriguez - Last Filed: 03/17/18 12:34> - Plan Patient seen and examined Agree with above Continue with current supportive care Monitor labs Follow-up with GI post discharge Most likely will be obtaining an inflammatory panel as an outpatient in addition to repeating imaging of the abdomen on follow-up so as to reassess for possible Crohn's disease <Tae Tinajero - Last Filed: 03/17/18 17:14>
--- NOTE | 2018-03-17 12:58 | P.PNID ---
Subjective Remarks: Patient is a 32-year-old male, presented to the hospital complaining 2-day history of significant abdominal pain. He has had some nausea but no vomiting. On reviewing his records he has had several visits in the emergency room complaining of some nausea and some abdominal pain and this was back in June and July of this year. Imaging studies on this admission revealed findings of appendicitis, but the he also has abnormalities in his bowels. He underwent diagnostic laparoscopy, and he has evidence of significant inflammation of his bowels. There was some purulent fluid in the bowel and this was sent for culture. He also had an ileal mesentery biopsy done and those are still pending. GI is evaluating the patient for possible Crohn's disease. Patient denies any ongoing problem with constipation or diarrhea. Infectious disease consultation has been requested to evaluate the patient and make recommendation on antibiotics. Notes reviewed Doing well Tolerating diet D/W K Jessica [facility] Surgery C/S E coli ESBL and Strep Antibiotics: Diflucan Invanz Past Medical History: Mandible Fracture Hernia repair Allergies/Adverse Reactions: Allergies clindamycin Allergy (Severe, Unverified 07/22/17 10:41) RASH Sulfa (Sulfonamide Antibiotics) Allergy (Severe, Unverified 07/22/17 10:41) Rash Objective Vital Signs 03/16/18 16:00 03/16/18 19:39 03/17/18 00:00 Temperature 97.9 F 97.8 F 98.2 F Pulse Rate 89 84 77 Respiratory Rate 17 16 16 Blood Pressure 131/85 136/81 147/81 H Pulse Oximetry 90 L 89 L 92 L 03/17/18 04:00 03/17/18 08:00 03/17/18 12:00 Temperature 98.3 F 98.1 F Pulse Rate 55 L 71 Respiratory Rate 15 18 17 Blood Pressure 132/75 145/72 H Pulse Oximetry 92 L 87 L Intake & Output 03/16/18 03/17/18 03/17/18 18:59 06:59 18:59 Intake Total 4550 / 4550 1600 / 1600 1000 / 1000 Output Total 1220 / 1220 600 / 600 Balance 3330 / 3330 1000 / 1000 1000 / 1000 Weight 97.8 kg Intake: IV 1200 / 1200 400 / 400 1000 / 1000 D5W/LR Inj 1,000 ML @ 125 mls/ 1000 / 1000 900 / 900 hr IV.CONT .Q8H [facility] Rx#: [id number] Diflucan 400 mg Premix Bag 200 200 / 200 ML @ 100 mls/hr IV.SIG Q24H [facility] Rx#:[id number] Zosyn 4.5 GM Premix 4.5 gm In 200 / 200 200 / 200 100 / 100 100 ml @ 200 mls/hr IV.SIG Q6H [facility] Rx#:[id number] Oral 1350 / 1350 1200 / 1200 Anesthesia Amount 2000 / 1999 Output: Urine 950 / 950 600 / 600 Estimated Blood Loss 30 / 30 Wound Drainage 240 / 240 # 1 Abdomen Michael 210 / 210 # 1 Abdomen SAURAV Drain Other: # Voids 5 # Bowel Movements 0 03/14/18 20:46 Fluid - Other Gram Stain - Final 03/14/18 20:46 Fluid - Other Wound Culture - Final Escherichia coli ESBL positive Beta Strep not A,B or D Lab - Hematology Results 03/16/18 03/17/18 06:15 05:43 WBC 17.3 H 15.8 H RBC 4.46 L 4.43 L Hgb 13.9 14.3 Hct 41.6 40.5 MCV 93.3 91.3 MCH 31.2 32.3 MCHC 33.5 35.3 RDW 13.2 13.0 Plt Count 188 236 MPV 9.7 9.4 Neut % (Auto) 92.6 H 88.5 H Lymph % (Auto) 4.5 L 6.6 L [place] % (Auto) 2.8 4.9 Eos % (Auto) 0.0 0.0 Baso % (Auto) 0.1 0.0 Neut # (Auto) 16.0 H 14.0 H Lymph # (Auto) 0.8 L 1.0 [place] # (Auto) 0.5 0.8 Eos # (Auto) 0.0 0.0 Baso # (Auto) 0.0 0.0 WBC Differential . . Differential Comment Auto diff final Auto diff final Lab - Chemistry Results 03/15/18 03/16/18 03/16/18 04:12 06:15 06:15 Sodium Potassium Chloride Carbon Dioxide Anion Gap BUN Creatinine Estimated GFR Random Glucose Hemoglobin A1c 4.9 Calcium Phosphorus Magnesium Iron 19 L TIBC 333 % Saturation 5.7 L Ferritin 416 H Total Bilirubin Direct Bilirubin Indirect Bilirubin AST ALT Alkaline Phosphatase Total Protein Albumin Tumor Marker AFP 1.9 03/16/18 06:15 Sodium 140 Potassium 3.6 Chloride 102 Carbon Dioxide 32.0 Anion Gap 6 BUN 10 Creatinine 1.02 Estimated GFR 86 L Random Glucose 120 H Hemoglobin A1c Calcium 8.9 Phosphorus 1.8 L Magnesium 2.4 Iron TIBC % Saturation Ferritin Total Bilirubin 0.8 Direct Bilirubin 0.4 H Indirect Bilirubin 0.4 AST 24 ALT 60 Alkaline Phosphatase 74 Total Protein 7.3 D Albumin 3.0 L D Tumor Marker AFP Imaging: ITS Impressions Abdomen/Pelvis CT 03/14/18 15:41 CONCLUSION: 1. Acute appendicitis without abscess or rupture. 2. Enteritis and colitis, most severely involving the ileum and of concern for underlying Crohn's disease. 3. Enlarged and fatty infiltrated liver. 4. Tiny nonobstructing stone of the left kidney. Abdomen X-Ray 03/16/18 00:00 CONCLUSION: No significant ileus or free air. Physical Exam: GENERAL: Patient is a well-nourished, well-developed male, awake and alert, not in respiratory distress. SKIN: Warm and dry. No generalized rash, no ecchymoses and no evidence of embolic lesions. HEAD: Atraumatic. Normocephalic. No temporal wasting, or tenderness. EYES: [place] conjunctiva. No petechia or hemorrhage. Pupils equal, round and reactive to light. Extraocular movements full and intact. No scleral icterus. No injection or drainage. EARS, NOSE AND THROAT: Nose without bleeding or purulent nasal discharge. No sinus tenderness. Mucous membranes pink and moist. No oral lesions noted. No exudate. No oral thrush. NECK: Trachea midline. Supple and not tender, no meningeal signs CARDIOVASCULAR: Regular rate and rhythm. No murmurs, rubs or gallops heard RESPIRATORY: Clear to auscultation. Breath sounds equal bilaterally. No rales , wheezing or rhonchi ABDOMEN: Soft, nondistended, hypoactive bowel sounds, diffuse tenderness. Incisions dry. No rebound. EXTREMITIES: No clubbing, cyanosis, or edema. No joint effusion, has good ROM. No calf tenderness. Well perfused and warm. NEUROLOGICAL: Awake and alert. Cranial nerves grossly intact. Motor grossly within normal limits. PSYCHIATRIC: Normal affect, calm and cooperative. LINE: No evidence of infection Assessment and Plan - Plan Impression Abdominal pain, with findings of inflamed small bowel/sigmoid and purulent fluid in pelvis and RLQ - C/S E coli ESBL+ and Strep ?Crohn's disease Allergy to Clinda and Bactrim Recommendation Patient now on Invanz Ok to stop Diflucan Monitor progress D/W K Jessica - change to po Abx; possibly D/C tomorrow; drains will be left in place and be addressed winter olivarez fup with surgery GI work-up as outpatient Levaquin and Flagyl x 14 days on D/C
[2018-03-17 14:06] LABS: Smooth Muscle Total Auto Abs Negative (Negative)
[2018-03-17] MEDS: levoFLOXacin 750 MG Tablet PO SCH (15:05)
[2018-03-17] MEDS: metroNIDAZOLE 500 MG Tablet PO SCH ×2 (15:05→21:03)
[2018-03-17] MEDS: Morphine Sulfate Inj 2 MG/ML Vial IV.PUSH PRN ×2 (16:22→22:28)
[2018-03-18] MEDS: MethylPREDNISolone Sod Succinate Inj 40 MG/ML Vial IV.PUSH SCH (02:34)
[2018-03-18 05:13] LABS: Baso % (Auto) 0.1 % (0.0-2.0); Hematocrit 43.3 % (39.0-51.0); Hemoglobin 14.8 gm/dL (13.0-17.0); Lymph # (Auto) 1.9 th/mm3 (1.0-4.8); Lymph % (Auto) 15.2 % (9.0-44.0); Mean Corpuscular HGB Conc 34.2 % (32.0-36.0); Mean Corpuscular Hemoglobin 31.2 pg (27.0-34.0); Mean Corpuscular Volume 91.2 fL (80.0-100.0); Mean Platelet Volume 8.6 fL (7.0-11.0); Mono # (Auto) 1.2 th/mm3 (0.0-0.9); Mono % (Auto) 9.7 % (0.0-8.0); Neut # (Auto) 9.5 th/mm3 (1.8-7.7); Platelet Count 242 th/mm3 (150-450); Red Blood Count 4.75 mil/mm3 (4.50-5.90); Red Cell Distribution Width 12.9 % (11.6-17.2); White Blood Count 12.7 th/mm3 (4.0-11.0)
[2018-03-18] MEDS: metroNIDAZOLE 500 MG Tablet PO SCH (05:14)
[2018-03-18 08:59] LABS: Lymphocytes 9 % (9-44); Monocytes 8 % (0-8); Promyelocyte 3 % (0-0)
[2018-03-18 09:00] LABS: Platelet Estimate Normal (Normal); Platelet Morphology Normal (Normal)
[2018-03-18] MEDS: levoFLOXacin 750 MG Tablet PO SCH (09:12)
--- NOTE | 2018-03-18 11:07 | P.PNID ---
Subjective Remarks: Patient is a 32-year-old male, presented to the hospital complaining 2-day history of significant abdominal pain. He has had some nausea but no vomiting. On reviewing his records he has had several visits in the emergency room complaining of some nausea and some abdominal pain and this was back in June and July of this year. Imaging studies on this admission revealed findings of appendicitis, but the he also has abnormalities in his bowels. He underwent diagnostic laparoscopy, and he has evidence of significant inflammation of his bowels. There was some purulent fluid in the bowel and this was sent for culture. He also had an ileal mesentery biopsy done and those are still pending. GI is evaluating the patient for possible Crohn's disease. Patient denies any ongoing problem with constipation or diarrhea. Infectious disease consultation has been requested to evaluate the patient and make recommendation on antibiotics. Notes reviewed Doing well Tolerating diet C/S E coli ESBL and Strep Antibiotics: Diflucan Invanz Past Medical History: Mandible Fracture Hernia repair Allergies/Adverse Reactions: Allergies clindamycin Allergy (Severe, Unverified 07/22/17 10:41) RASH Sulfa (Sulfonamide Antibiotics) Allergy (Severe, Unverified 07/22/17 10:41) Rash Objective Vital Signs 03/17/18 12:00 03/17/18 16:00 03/17/18 20:00 Temperature 98.1 F 98.2 F 97.4 F L Pulse Rate 71 81 70 Respiratory Rate 17 18 19 Blood Pressure 145/72 H 160/101 H 141/83 H Pulse Oximetry 87 L 94 L 94 L 03/18/18 00:00 03/18/18 04:00 03/18/18 08:00 Temperature 97.8 F 98.1 F Pulse Rate 77 85 Respiratory Rate 18 18 18 Blood Pressure 146/88 H 131/83 Pulse Oximetry 97 95 Intake & Output 03/17/18 03/18/18 03/18/18 18:59 06:59 18:59 Intake Total 1900 / 1900 1000 / 1000 Output Total 30 / 30 Balance 1900 / 1900 970 / 970 Weight 96.2 kg Intake: IV 1100 / 1100 D5W/LR Inj 1,000 ML @ 125 mls/ 900 / 900 hr IV.CONT .Q8H [facility] Rx#: [id number] INVanz Inj 1,000 MG In NS Inj 100 / 100 100 ML @ 200 mls/hr IV.SIG Q24H [facility] Rx#:[id number] Zosyn 4.5 GM Premix 4.5 gm In 100 / 100 100 ml @ 200 mls/hr IV.SIG Q6H [facility] Rx#:[id number] Oral 800 / 800 1000 / 1000 Output: Wound Drainage # 1 Abdomen Michael Other: # Voids 6 5 Date of Last Bowel Movement 03/18/18 # Bowel Movements 2 03/14/18 20:46 Fluid - Other Gram Stain - Final 03/14/18 20:46 Fluid - Other Wound Culture - Final Escherichia coli ESBL positive Beta Strep not A,B or D Lab - Hematology Results 03/17/18 03/18/18 05:43 03:55 WBC 15.8 H 12.7 H RBC 4.43 L 4.75 Hgb 14.3 14.8 Hct 40.5 43.3 MCV 91.3 91.2 MCH 32.3 31.2 MCHC 35.3 34.2 RDW 13.0 12.9 Plt Count 236 242 MPV 9.4 8.6 Prelim Diff (Auto) Slide review pending Neut % (Auto) 88.5 H 75.0 H Lymph % (Auto) 6.6 L 15.2 [place] % (Auto) 4.9 9.7 H Eos % (Auto) 0.0 0.0 Baso % (Auto) 0.0 0.1 Neut # (Auto) 14.0 H 9.5 H Lymph # (Auto) 1.0 1.9 [place] # (Auto) 0.8 1.2 H Eos # (Auto) 0.0 0.0 Baso # (Auto) 0.0 0.0 WBC Differential . Manual diff final Seg Neuts % (Manual) 80 H Lymphocytes % (Manual) 9 Monocytes % (Manual) 8 Promyelocytes % (Man) 3 H Abs Neuts (Manual) 10.5 H Differential Comment Auto diff final . Platelet Estimate Normal Platelet Morphology Normal Lab - Chemistry Results 03/16/18 06:15 Hemoglobin A1c 4.9 Imaging: ITS Impressions Abdomen/Pelvis CT 03/14/18 15:41 CONCLUSION: 1. Acute appendicitis without abscess or rupture. 2. Enteritis and colitis, most severely involving the ileum and of concern for underlying Crohn's disease. 3. Enlarged and fatty infiltrated liver. 4. Tiny nonobstructing stone of the left kidney. Abdomen X-Ray 03/16/18 00:00 CONCLUSION: No significant ileus or free air. Physical Exam: GENERAL: Patient is a well-nourished, well-developed male, awake and alert, not in respiratory distress. SKIN: Warm and dry. No generalized rash, no ecchymoses and no evidence of embolic lesions. HEAD: Atraumatic. Normocephalic. No temporal wasting, or tenderness. EYES: [place] conjunctiva. No petechia or hemorrhage. Pupils equal, round and reactive to light. Extraocular movements full and intact. No scleral icterus. No injection or drainage. EARS, NOSE AND THROAT: Nose without bleeding or purulent nasal discharge. No sinus tenderness. Mucous membranes pink and moist. No oral lesions noted. No exudate. No oral thrush. NECK: Trachea midline. Supple and not tender, no meningeal signs CARDIOVASCULAR: Regular rate and rhythm. No murmurs, rubs or gallops heard RESPIRATORY: Clear to auscultation. Breath sounds equal bilaterally. No rales , wheezing or rhonchi ABDOMEN: Soft, nondistended, hypoactive bowel sounds, diffuse tenderness. Incisions dry. No rebound. EXTREMITIES: No clubbing, cyanosis, or edema. No joint effusion, has good ROM. No calf tenderness. Well perfused and warm. NEUROLOGICAL: Awake and alert. Cranial nerves grossly intact. Motor grossly within normal limits. PSYCHIATRIC: Normal affect, calm and cooperative. LINE: No evidence of infection Assessment and Plan - Plan Impression Abdominal pain, with findings of inflamed small bowel/sigmoid and purulent fluid in pelvis and RLQ - C/S E coli ESBL+ and Strep ?Crohn's disease Allergy to Clinda and Bactrim Recommendation OK for D/C - give 14 days Levaquin and Flagyl he has fup with GI and GS Explained plan to patient D/W Dr Shook (HEPAS) D/W Luis BOWER (SURGERY)
--- NOTE | 2018-03-18 11:14 | P.DS ---
Date of admission: 03/14/18 19:00 Primary care physician: No Primary Care Physician Attending physician on discharge: Dr. Shook Brief History from admission: Patient is a 32-year-old male who began to have increased abdominal pain over the last 2 days. He has nausea but no emesis. There was a concern for appendicitis and inflammatory bowel disease and the patient was admitted for evaluation and treatment. DS: Medications - Discharge Medications Prescriptions: hydrocodone-acetaminophen 1 tab PO Q4H PRN #15 tab PRN Reason: acute post op pain exception levofloxacin 750 mg PO DAILY 14 Days #14 tab metronidazole 500 mg PO Q8HR 14 Days tab DS: Summary Hospital Course: This patient is a 32-year-old male with no known significant past medical history who presented to our emergency department after having a couple of days of severe abdominal pain. Imaging showed findings consistent with appendicitis. Patient was admitted and evaluated by the surgical team. Laparotomy subsequently showed findings consistent with bowel inflammation consistent with inflammatory bowel disease. 1. Sepsis secondary to ileal enteritis status post drainage of intra-abdominal abscess. 2. Suspected Crohn's exacerbation The patient was admitted and GI, infectious disease, and surgery were consulted. The patient underwent laparotomy which showed findings concerning for inflammatory bowel disease. The appendix also appeared to be inflamed however no appendectomy was performed as there was a suspicion for Crohn's disease and possible fistula formation after appendectomy. Biopsies were taken which showed fibroadipose tissue with surface exudate, clinically ileal mesentery. There is no definite evidence of Crohn's disease. Patient should follow-up outpatient with GI for further investigation of his suspected Crohn's disease. The patient states he feels much better than his initial admission date. WBC count is downtrending down trended significantly. The patient has remained afebrile. Blood cultures are negative Culture from the abscess drainage is positive for ESBL E. coli. IV antibiotics switched to Invanz, the patient will be discharged home today and is to continue 2 weeks of p.o. Levaquin and Flagyl as per infectious disease recommendations. Patient is now tolerating a p.o. diet. His abdominal pain has improved significantly. He does not have any nausea. 3. Alcoholic related fatty liver disease. Patient was advised to avoid alcohol. He says that currently is not drinking alcohol. - Time Spent with Patient Total time spent providing and/or coordinating discharge services: Less than 30 minutes Exam Vital signs: Vital Signs 03/17/18 12:00 03/17/18 16:00 03/17/18 20:00 Temperature 98.1 F 98.2 F 97.4 F L Pulse Rate 71 81 70 Respiratory Rate 17 18 19 Blood Pressure 145/72 H 160/101 H 141/83 H Pulse Oximetry 87 L 94 L 94 L 03/18/18 00:00 03/18/18 04:00 03/18/18 08:00 Temperature 97.8 F 98.1 F Pulse Rate 77 85 Respiratory Rate 18 18 18 Blood Pressure 146/88 H 131/83 Pulse Oximetry 97 95 Intake & Output 03/17/18 03/18/18 03/18/18 18:59 06:59 18:59 Intake Total 1900 / 1900 1000 / 1000 Output Total 30 / 30 Balance 1900 / 1900 970 / 970 Weight 96.2 kg Intake: IV 1100 / 1100 D5W/LR Inj 1,000 ML @ 125 mls/ 900 / 900 hr IV.CONT .Q8H LEE Rx#: [id number] INVanz Inj 1,000 MG In NS Inj 100 / 100 100 ML @ 200 mls/hr IV.SIG Q24H LEE Rx#:[id number] Zosyn 4.5 GM Premix 4.5 gm In 100 / 100 100 ml @ 200 mls/hr IV.SIG Q6H LEE Rx#:[id number] Oral 800 / 800 1000 / 1000 Output: Wound Drainage 30 # 1 Abdomen Michael 30 Other: # Voids 6 5 Date of Last Bowel Movement 03/18/18 # Bowel Movements 2 Narrative: General patient in no acute distress HEENT extraocular movements are intact, clear oropharyngeal mucosa, no JVD Cardiovascular S1-S2 audible, RRR, no murmurs rubs or gallops Respiratory clear to auscultation bilaterally Abdomen soft, pain in the abdomen has improved significantly. Normal bowel sounds. Extremities no edema 2+ distal pulses in bilateral upper and lower extremities Neuro cranial nerves II through XII intact Results Procedures completed during hospitalization: Laparotomy Completed studies during hospitalization: Pending at discharge 03/15/18 Surgical [PTH] Routine Labs on day of discharge: Labs from last 24 hours 03/18/18 03/16/18 03:55 06:15 WBC 12.7 H RBC 4.75 Hgb 14.8 Hct 43.3 MCV 91.2 MCH 31.2 MCHC 34.2 RDW 12.9 Plt Count 242 MPV 8.6 Prelim Diff (Auto) Slide review pending Neut % (Auto) 75.0 H Lymph % (Auto) 15.2 [place] % (Auto) 9.7 H Eos % (Auto) 0.0 Baso % (Auto) 0.1 Neut # (Auto) 9.5 H Lymph # (Auto) 1.9 [place] # (Auto) 1.2 H Eos # (Auto) 0.0 Baso # (Auto) 0.0 WBC Differential Manual diff final Seg Neuts % (Manual) 80 H Lymphocytes % (Manual) 9 Monocytes % (Manual) 8 Promyelocytes % (Man) 3 H Abs Neuts (Manual) 10.5 H Differential Comment . Platelet Estimate Normal Platelet Morphology Normal Rheumatoid Factor Less than 14 Anti-Smooth Muscle Ab Negative - Impressions ITS Impressions Abdomen/Pelvis CT 03/14/18 15:41 CONCLUSION: 1. Acute appendicitis without abscess or rupture. 2. Enteritis and colitis, most severely involving the ileum and of concern for underlying Crohn's disease. 3. Enlarged and fatty infiltrated liver. 4. Tiny nonobstructing stone of the left kidney. Abdomen X-Ray 03/16/18 00:00 CONCLUSION: No significant ileus or free air. Discharge Plan - Discharge Disposition Patient Disposition: Discharge Home - Discharge Condition Condition: Stable - Discharge Order Discharge Orders: Discharge Order (Routine); Ordered 03/18/18 Ordered By: Chel Shook - Discharge Details Anticipated Discharge Date: 03/14/18 - Physicians Team Primary Care Provider: Primary Toya Oreilly Attending Provider: Chel Shook Other Providers: Tae Tinajero MD ; Silveiro Dave MD ; Angela Brown MD - Rxs /Orders / Referrals /Forms Prescriptions: New hydrocodone-acetaminophen 5-325 mg Tablet 1 tab PO Q4H PRN (Reason: acute post op pain exception ) Qty: 15 RF: 0 levofloxacin 750 mg Tablet 750 mg PO DAILY 14 Days Qty: 14 RF: 0 metronidazole 500 mg Tablet 500 mg PO Q8HR 14 Days RF: 0 Continue No Known Home Medications Referrals: Primary Care Toya Harris [Primary Care Provider] - See Instructions - Discharge Instructions Additional Instructions: Follow-up with surgery in 1 week for management and possible removal of the abdominal drain. Patient was advised to return to the emergency department if he begins to spike fevers or his abdominal pain significantly worsens.
[2018-03-18] MEDS: Sodium Chloride 0.9% 2 ML Flush BID IV.FLUSH SCH (11:24)
--- NOTE | 2018-03-18 13:01 | P.PNGS ---
Subjective Interval history: Resting in bed Feels ready to go home today No issues overnight Pain better today Physical Exam Vital signs: Vital Signs 03/17/18 16:00 03/17/18 20:00 03/18/18 00:00 Temperature 98.2 F 97.4 F L 97.8 F Pulse Rate 81 70 77 Respiratory Rate 18 19 18 Blood Pressure 160/101 H 141/83 H 146/88 H Pulse Oximetry 94 L 94 L 97 03/18/18 04:00 03/18/18 08:00 Temperature 98.1 F Pulse Rate 85 Respiratory Rate 18 18 Blood Pressure 131/83 Pulse Oximetry 95 Intake & Output 03/17/18 03/18/18 03/18/18 18:59 06:59 18:59 Intake Total 1900 / 1900 1000 / 1000 Output Total 30 / 30 Balance 1900 / 1900 970 / 970 Weight 96.2 kg Intake: IV 1100 / 1100 D5W/LR Inj 1,000 ML @ 125 mls/ 900 / 900 hr IV.CONT .Q8H LEE Rx#: [id number] INVanz Inj 1,000 MG In NS Inj 100 / 100 100 ML @ 200 mls/hr IV.SIG Q24H LEE Rx#:[id number] Zosyn 4.5 GM Premix 4.5 gm In 100 / 100 100 ml @ 200 mls/hr IV.SIG Q6H LEE Rx#:[id number] Oral 800 / 800 1000 / 1000 Output: Wound Drainage 30 # 1 Abdomen Michael Other: # Voids 6 5 Date of Last Bowel Movement 03/18/18 # Bowel Movements 2 Narrative: Alert and awake Abd: soft; minimally tender; SAURAV with serous mildly cloudy drainage Results - Labs 03/18/18 03:55 03/16/18 06:15 Laboratory Results - last 24 hr 03/16/18 03/18/18 06:15 03:55 WBC 12.7 H RBC 4.75 Hgb 14.8 Hct 43.3 MCV 91.2 MCH 31.2 MCHC 34.2 RDW 12.9 Plt Count 242 MPV 8.6 Prelim Diff (Auto) Slide review pending Neut % (Auto) 75.0 H Lymph % (Auto) 15.2 [place] % (Auto) 9.7 H Eos % (Auto) 0.0 Baso % (Auto) 0.1 Neut # (Auto) 9.5 H Lymph # (Auto) 1.9 [place] # (Auto) 1.2 H Eos # (Auto) 0.0 Baso # (Auto) 0.0 WBC Differential Manual diff final Seg Neuts % (Manual) 80 H Lymphocytes % (Manual) 9 Monocytes % (Manual) 8 Promyelocytes % (Man) 3 H Abs Neuts (Manual) 10.5 H Differential Comment . Platelet Estimate Normal Platelet Morphology Normal Rheumatoid Factor Less than 14 Anti-Smooth Muscle Ab Negative - Imaging Imaging: ITS Impressions Abdomen/Pelvis CT 03/14/18 15:41 CONCLUSION: 1. Acute appendicitis without abscess or rupture. 2. Enteritis and colitis, most severely involving the ileum and of concern for underlying Crohn's disease. 3. Enlarged and fatty infiltrated liver. 4. Tiny nonobstructing stone of the left kidney. Abdomen X-Ray 03/16/18 00:00 CONCLUSION: No significant ileus or free air. Assessment and Plan - Assessment (1) Enteritis Code(s): K52.9 - Noninfective gastroenteritis and colitis, unspecified Status : Acute (2) Abdominal pain Code(s): R10.9 - Unspecified abdominal pain Status: Acute Plan: 32 year old male with abdominal pain; POD3 Diagnostic laparoscopy; Gram stain, culture and sensitivity of peritoneal fluid; Biopsy ileal mesentery -Biopsy results back---inconclusive for Crohn's disease ---GI to continue workup as outpatient -Cultures of peritoneal fluid obtained---ID following ---now on PO antibiotics -Tolerated regular diet -Pain control -GS clear for DC with SAURAV -Follow up with Dr. Dave next -Rx for [place] and antibiotics on chart As above; still somewhat painful, but much improved Patient relates 25 lb weight loss over last two months in spite of not trying to lose weight; I explained that inflammatory bowel disease can cause this. I also touched base with Dr. Wilks; patient can have colonoscopy as outpatient once he recovers. The exam, history, and the medical decision-making described in the above note were completed with the assistance of the mid-level provider. I reviewed and agree with the findings presented. I attest that I had a [id number] encounter with the patient on the same day, and personally performed and documented my assessment and findings in the medical record.
--- NOTE | 2018-03-18 13:36 | P.PNGI ---
Subjective Interval history: Patient in treatment room dressing and preparing for discharge home. States tolerated breakfast meal well. Denies abdominal pain other than soreness with excessive movement. States he had a BM this am. <Millie Rodriguez - Last Filed: 03/18/18 13:28> Physical Exam Vital signs: Vital Signs 03/17/18 16:00 03/17/18 20:00 03/18/18 00:00 Temperature 98.2 F 97.4 F L 97.8 F Pulse Rate 81 70 77 Respiratory Rate 18 19 18 Blood Pressure 160/101 H 141/83 H 146/88 H Pulse Oximetry 94 L 94 L 97 03/18/18 04:00 03/18/18 08:00 Temperature 98.1 F Pulse Rate 85 Respiratory Rate 18 18 Blood Pressure 131/83 Pulse Oximetry 95 Intake & Output 03/17/18 03/18/18 03/18/18 18:59 06:59 18:59 Intake Total 1900 / 1900 1000 / 1000 Output Total 30 / 30 Balance 1900 / 1900 970 / 970 Weight 96.2 kg Intake: IV 1100 / 1100 D5W/LR Inj 1,000 ML @ 125 mls/ 900 / 900 hr IV.CONT .Q8H LEE Rx#: [id number] INVanz Inj 1,000 MG In NS Inj 100 / 100 100 ML @ 200 mls/hr IV.SIG Q24H LEE Rx#:[id number] Zosyn 4.5 GM Premix 4.5 gm In 100 / 100 100 ml @ 200 mls/hr IV.SIG Q6H LEE Rx#:[id number] Oral 800 / 800 1000 / 1000 Output: Wound Drainage 30 / 30 # 1 Abdomen Michael 30 / 30 Other: # Voids 6 5 Date of Last Bowel Movement 03/18/18 # Bowel Movements 2 - Constitutional no acute distress - Routine HEENT Exam Head: Present: normocephalic - Routine Respiratory Exam Present: CTA bilaterally - Routine Cardiovascular Exam Present: RRR - Routine Abdominal Exam Present: soft, normoactive bowel sounds, tenderness Comments: some mild tenderness surrounding drain site on palpation - Routine Extremities Exam Present: full ROM. Absent: edema - Routine Skin Exam Present: dry, warm. Absent: jaundice - Routine Neurological Exam Present: alert, oriented X3 - Detailed Neurological Exam: Coma Scale Eye Opening: Spontaneous Verbal Response: Oriented Motor Response: Obey commands [place] Coma Scale Total: 15 - Routine Psychiatric Exam Present: normal affect, cooperative <Millie Rodriguez - Last Filed: 03/18/18 13:28> Vital signs: Vital Signs 03/17/18 20:00 03/18/18 00:00 03/18/18 04:00 Temperature 97.4 F L 97.8 F Pulse Rate 70 77 Respiratory Rate 19 18 18 Blood Pressure 141/83 H 146/88 H Pulse Oximetry 94 L 97 03/18/18 08:00 03/18/18 12:00 Temperature 98.1 F 97.7 F Pulse Rate 85 84 Respiratory Rate 18 16 Blood Pressure 131/83 134/76 Pulse Oximetry 95 96 Intake & Output 03/17/18 03/18/18 03/18/18 18:59 06:59 18:59 Intake Total 1900 / 1900 1000 / 1000 Output Total 30 / 30 Balance 1900 / 1900 970 / 970 Weight 96.2 kg Intake: IV 1100 / 1100 D5W/LR Inj 1,000 ML @ 125 mls/ 900 / 900 hr IV.CONT .Q8H LEE Rx#: [id number] INVanz Inj 1,000 MG In NS Inj 100 / 100 100 ML @ 200 mls/hr IV.SIG Q24H LEE Rx#:[id number] Zosyn 4.5 GM Premix 4.5 gm In 100 / 100 100 ml @ 200 mls/hr IV.SIG Q6H LEE Rx#:[id number] Oral 800 / 800 1000 / 1000 Output: Wound Drainage 30 / 30 # 1 Abdomen Michael 30 / 30 Other: # Voids 6 5 Date of Last Bowel Movement 03/18/18 # Bowel Movements 2 <Tae Tinajero E - Last Filed: 03/18/18 16:52> Results - Labs CBC & Chem 7: 03/18/18 03:55 03/16/18 06:15 Laboratory Results - last 24 hr 03/16/18 03/18/18 06:15 03:55 WBC 12.7 H RBC 4.75 Hgb 14.8 Hct 43.3 MCV 91.2 MCH 31.2 MCHC 34.2 RDW 12.9 Plt Count 242 MPV 8.6 Prelim Diff (Auto) Slide review pending Neut % (Auto) 75.0 H Lymph % (Auto) 15.2 [place] % (Auto) 9.7 H Eos % (Auto) 0.0 Baso % (Auto) 0.1 Neut # (Auto) 9.5 H Lymph # (Auto) 1.9 [place] # (Auto) 1.2 H Eos # (Auto) 0.0 Baso # (Auto) 0.0 WBC Differential Manual diff final Seg Neuts % (Manual) 80 H Lymphocytes % (Manual) 9 Monocytes % (Manual) 8 Promyelocytes % (Man) 3 H Abs Neuts (Manual) 10.5 H Differential Comment . Platelet Estimate Normal Platelet Morphology Normal Rheumatoid Factor Less than 14 Anti-Smooth Muscle Ab Negative Microbiology 03/14/18 20:46 Fluid - Other Gram Stain - Final 03/14/18 20:46 Fluid - Other Wound Culture - Final Escherichia coli ESBL positive Beta Strep not A,B or D - Procedures Laparotomy <Millie Rodriguez - Last Filed: 03/18/18 13:28> - Labs CBC & Chem 7: 03/18/18 03:55 03/16/18 06:15 Laboratory Results - last 24 hr 03/16/18 03/18/18 06:15 03:55 WBC 12.7 H RBC 4.75 Hgb 14.8 Hct 43.3 MCV 91.2 MCH 31.2 MCHC 34.2 RDW 12.9 Plt Count 242 MPV 8.6 Prelim Diff (Auto) Slide review pending Neut % (Auto) 75.0 H Lymph % (Auto) 15.2 [place] % (Auto) 9.7 H Eos % (Auto) 0.0 Baso % (Auto) 0.1 Neut # (Auto) 9.5 H Lymph # (Auto) 1.9 [place] # (Auto) 1.2 H Eos # (Auto) 0.0 Baso # (Auto) 0.0 WBC Differential Manual diff final Seg Neuts % (Manual) 80 H Lymphocytes % (Manual) 9 Monocytes % (Manual) 8 Promyelocytes % (Man) 3 H Abs Neuts (Manual) 10.5 H Differential Comment . Platelet Estimate Normal Platelet Morphology Normal Rheumatoid Factor Less than 14 <Tae Tinajero - Last Filed: 03/18/18 16:52> Assessment and Plan - Plan -Ileal biopsy pathology noted-Final Diagnosis : FIBROADIPOSE TISSUE WITH SURFACE EXUDATE, CLINICALLY ILEAL MESENTERY. Inconclusive for the diagnosis of Crohn's disease. Will repeat imaging in a few weeks to reassess. We will continue to monitor closely. AM labs reveal WBC 15.8 trending downwards- patient is post acute appendicitis with possible enteritis, hemoglobin 14.3 hematocrit 40.5. 03/18/18 - Patient preparing for discharge home. Instructed to follow up with GI after discharge for additional workup to reassess for Crohns. Patient verbalizes understanding and agreement. Plan: Regular diet Follow up with GI post discharge - 2 weeks No steroids for home dc. Will reeval as outpatient Further inflammatory work up as outpt This patient has been seen by myself and Lior Elliott and this note is written on his behalf - Attending Attestation Dr. Tinajero <Millie Rodriguez - Last Filed: 03/18/18 13:28> - Plan Patient seen and examined Agree with above Continue with current supportive care Monitor labs Okay for discharge from a GI standpoint follow-up with GI post discharge for further evaluation and treatment We will be obtaining IBD panel and repeat imaging a few weeks down the road to verify presence of Crohn's or not <Tae Tinajero - Last Filed: 03/18/18 16:52>
[2018-03-18 13:45] VITALS: BP 134/76; PULSE 84; RESP 16; TEMP 97.7; O2SAT 96
[2018-03-18 19:52] LABS: Ceruloplasmin 29 mg/dL (18-36)
[2018-03-19 03:51] LABS: DS DNA Ab (Crithidia) NEGATIVE (NEGATIVE)
== END 2018-03-18 13:51 | disposition home or self-care (01) ==
LOC: NEPC 13:30 → NEDA 19:00 → N03 23:00 → N07 03-15 18:49
PROVIDERS: ADMIT Hospitalist; ATTEND Hospitalist
PROC: LAPAPPY (ICD-10-PCS; 2018-03-14 19:57)

== ENCOUNTER 2018-04-12 21:25 | Inpatient (IN) ==
[2018-04-12] MEDS ORDERED: Sod Chloride 0.9% Inj 1,000 ML IV.SIG ONE (21:55)
--- NOTE | 2018-04-12 22:00 | ED ---
HPI General Chief complaint: Abdominal Pain Stated complaint: wound recheck Time Seen by Provider: 04/12/18 21:43 History of Present Illness HPI narrative: 32-year-old male presents to the ED for evaluation of right lower abdominal pain. The patient was recently admitted at our facility 03/14 through 03/18/18 for right lower quadrant pain with findings suggestive of Crohn' s disease, he had a diagnostic laparoscopy where they did a biopsy of the ileum which was inconclusive, the appendix was noted to be inflamed however they did not remove the appendix. The patient states he followed up with his surgeon Dr. Dave about 2 weeks ago to have the drain removed. States he has had some mild intermittent right lower pain since then however this pain today is much worse and has been constant. The patient states that the pain began at around 11 AM and was worsening throughout the day. States that about an hour ago he took a pain pill which he was prescribed from his recent surgery which has greatly improved the pain. States that he has had 3 episodes of nonbloody nonbilious emesis today. States that he has not had a normal bowel movement in the past 6 days, states that he has passed only small amounts of palpable like stool. He denies any fever, chills, dysuria, shortness of breath, difficulty breathing. He does state he has had some pain in his right lower chest when he takes a deep breath since the surgery. No cough or cold symptoms, swelling of the extremities. No other complaints. Related Data Previous Rx's Medication Instructions Recorded Lactobacillus acidoph-L.bulgar 1 tab PO BID 10 Days #20 tab 04/15/18 [Lactinex] hydrocodone-acetaminophen 1 tab PO Q4H PRN #15 tab 04/15/18 levofloxacin 500 mg PO DAILY 10 Days #10 tab 04/15/18 metronidazole [Flagyl] 500 mg PO TID 10 Days #30 tab 04/15/18 Allergies Allergy/AdvReac Type Severity Reaction Status Date / Time clindamycin Allergy Severe RASH Verified 04/12/18 21:33 Sulfa (Sulfonamide Allergy Severe Rash Verified 04/12/18 21:33 Antibiotics) Review of Systems ROS: all other systems reviewed are negative [facility] Medical History Medical History Fracture, mandible (Acute) Social History Social History Substance History: No History of Abuse Second Hand Smoke Exposure: No Smoking Status: Never smoker Tobacco Type: Cigarettes How Often Do You Have a Drink Containing Alcohol: 2 to 3 times a week Recent Travel in [facility] within the Last 8 Weeks: No Recent Out of Country Travel within the Last 8 Weeks: No Substance Abuse Detail Marijuana: Substance Use Status: Sustained Remission Route Used Substance Abuse: Inhalation Last Used: YEARS AGO Immunization History Tetanus Immunization: <5 Years Exam Narrative Exam Narrative: GENERAL: Well-nourished and well-developed pleasant patient in no acute distress who is nontoxic appearing. SKIN: Warm and dry. HEAD: Normocephalic and atraumatic. EYES: No injection, drainage, or hyphema noted. PERRLA. EOMI. ENT: No nasal drainage noted. Oropharynx is clear. NECK: Supple and the trachea is midline. No lymphadenopathy is noted throughout the cervical chains. No thyroid masses or abnormalities palpated. No carotid bruits auscultated. CARDIOVASCULAR: Regular rate and rhythm. RESPIRATORY: Breath sounds are equal bilaterally with no accessory muscle use, wheezing, rhonchi, or crackles. GASTROINTESTINAL: Surgical scars noted to be healing well. Patient does have tenderness to palpation over right lower quadrant scar (states location of previous drain) and periumbilical region. Abdomen is soft and nondistended. MUSCULOSKELETAL: No obvious deformities, swelling, cyanosis, or ecchymosis is present throughout the upper and lower extremities. Patient has full range of motion without any signs of neurovascular compromise. Distal pulses are 2+ throughout. NEUROLOGICAL: Awake, alert, and oriented. Normal speech and gait. Cranial nerves are grossly intact. Course Consultations Consultation #1: The patient's case including history, pertinent physical examination findings, and laboratory studies were discussed with Dr. Hernandez, covering for Dr. Dave. It was agreed that the patient would be admitted to the [facility] hospitalist service. He will have Dr. Dave see the patient in consultation in the morning. He agreed with the plan to start the patient on Zosyn. Time: 00:19 Consultation #2: The patient's case including history, pertinent physical examination findings, and laboratory studies were discussed with Dr. Amaya. It was agreed that the patient would be admitted to the hospitalist service. Time: 00:27 Initial Documented Vital Signs Temperature 98.1 F 04/12/18 21:28 Pulse Rate 112 H 04/12/18 21:28 Respiratory Rate 16 04/12/18 21:28 Blood Pressure 153/97 H 04/12/18 21:28 Pulse Oximetry 99 04/12/18 21:28 Last Documented Vital Signs Temperature 98.5 F 04/15/18 11:50 Pulse Rate 69 04/15/18 11:50 Respiratory Rate 20 04/15/18 11:50 Blood Pressure 125/85 04/15/18 11:50 Pulse Oximetry 96 04/15/18 11:50 Sign Out Sign Out Data: Patient Sign Out occurred on 04/12/18 at 22:50. Patient's care was discussed, and care was transferred from REE Chen to Berkley Negron MD. Sign Out Comment: pending CT results Last updated by Bette Montemayor PA at 04/12/18 22:42 Post-Handoff Eval: Please see BRINDA provider attestation for further information regarding handoff. Medical Decision Making BRINDA Attestation BRINDA supervised visit: Yes Attestation: I, Dr. Negron, have reviewed the advance practice practitioner's documentation and am in agreement, met with the patient face to face, made the diagnosis, and the medical decision making was done by me. The patient was initially evaluated by Bette, the BRINDA. Please see their complete history and physical. *My assessment and Findings: The patient presents with a history of recurrent right lower quadrant abdominal pain. The patient's recent history is complicated by being admitted to the hospital with right lower quadrant pain and possible appendicitis. The patient had purulent fluid noted in the right lower quadrant of the abdomen and a surgical drain was placed by Dr. Dave. The patient was on IV antibiotic as an inpatient. There was a concern for possible underlying Crohn's, however colonoscopy was not done at that time, and instead recommended as an outpatient after the patient completed treatment for his acute illness. The patient's exam is remarkable for right lower quadrant abdominal pain and a sinus tachycardia. During the course of the patient's emergency department visit, the patient's history, examination, and differential diagnosis were reviewed with the patient. The patient was placed on a awake overnight monitor with oximetry and frequent blood pressure monitoring. The patient had IV access obtained and blood work sent for analysis. The patient was normal saline IV fluids, Zosyn 3.375 g IV. The patient's diagnostic studies were reviewed and remarkable for a white count of 7.6, hemoglobin 18.3, platelets 167, normal differential, PT PTT within normal limits, chemistry is remarkable for chloride of 97, BUN 3, glucose 110, total bilirubin 1.5, AST 212, ALT 102, alk phos 150, total protein 9.3. Lipase is within normal limits. CT scan of the abdomen and pelvis reveals a persistent inflammatory change around the appendix, small bowel centered inflammatory changes are much milder in the interim but there is an elongated fluid collection in the central and right upper abdomen that I believe is extraluminal and of concern for abscess according to the reading radiologist. The patient's case including history, pertinent physical examination findings, and laboratory studies were discussed with Dr. Hernandez covering for Dr. Dave, and Dr Amaya. It was agreed that the patient would be admitted to the hospitalist service. The patient's results were discussed with the patient, including the plan of care. I explained that further testing and/ or monitoring is indicated based on the patient's history, examination, and/ or laboratory findings. Therefore, I recommended admission for additional evaluation. The patient expressed understanding and was agreeable with this plan. The patient was admitted to the hospital in guarded condition and sent to a bed under the care of the [facility] service. [facility] Narrative Medical decision making narrative: 32-year-old male presents to the ED for evaluation of right lower abdominal pain. Patient recently admitted 03/14/18 through 03/18/18 for right lower quadrant pain and found to have inflamed small bowel/sigmoid with purulent fluid in the pelvis and right lower quadrant. Patient is afebrile, vital signs are stable. He is tachycardic with a heart rate of 112 bpm. IV access is obtained, labs have been drawn and sent. Patient is placed on cardiac telemetry and pulse oximetry monitoring. CT of the abdomen and pelvis with IV contrast has been ordered and is pending. CBC is unremarkable. Patient signed out to Dr. Negron who will assume care of the patient and disposition. Medical Screen Exam Complete: Yes Emergency Medical Condition: Yes Differential Diagnosis Differential Diagnosis: Abscess versus appendicitis versus Crohn's disease Medical Records Medical records reviewed: Yes I reviewed the patient's medical records. Lab Data Result diagrams: 04/15/18 08:25 04/14/18 07:46 Lab Results 04/12/18 04/12/18 04/12/18 Range/Units 22:05 22:05 22:05 WBC 7.6 (4.0-11.0) th/mm3 RBC 5.70 (4.50-5.90) mil/mm3 Hgb 18.3 H (13.0-17.0) gm/dL Hct 50.7 (39.0-51.0) % MCV 89.1 (80.0-100.0) fL MCH 32.1 (27.0-34.0) pg MCHC 36.1 H (32.0-36.0) % RDW 13.2 (11.6-17.2) % Plt Count 167 D (150-450) th/mm3 MPV 8.5 (7.0-11.0) fL Prelim Diff (Auto) Slide review pending Neut % (Auto) 62.7 (16.0-70.0) % Lymph % (Auto) 28.0 (9.0-44.0) % Atkinson % (Auto) 6.9 (0.0-8.0) % Eos % (Auto) 1.6 (0.0-4.0) % Baso % (Auto) 0.8 (0.0-2.0) % Neut # (Auto) 4.8 (1.8-7.7) th/mm3 Lymph # (Auto) 2.1 (1.0-4.8) th/mm3 Atkinson # (Auto) 0.5 (0.0-0.9) th/mm3 Eos # (Auto) 0.1 (0.0-0.4) th/mm3 Baso # (Auto) 0.1 (0.0-0.2) th/mm3 WBC Differential . Diff Scan Auto diff confirmed Differential Comment . Platelet Estimate Normal (Normal) Platelet Morphology Normal (Normal) RBC Morphology Normal (Normal) PT 10.8 (9.8-11.6) sec INR 1.1 Ratio APTT 26.2 (24.3-30.1) sec Sodium 137 (136-145) meq/L Potassium 3.5 (3.5-5.1) meq/L Chloride 97 L (98-107) meq/L Carbon Dioxide 26.5 (21.0-32.0) meq/L Anion Gap 14 (5-15) meq/L BUN 3 L (7-18) mg/dL Creatinine 1.00 (0.60-1.30) mg/dL Estimated GFR 88 L (>89) mL/min Random Glucose 110 H (74-106) mg/dL Lactic Acid (0.4-2.0) mmol/L Calcium 9.1 (8.5-10.1) mg/dL Total Bilirubin 1.5 H (0.2-1.0) mg/dL Direct Bilirubin (0.0-0.2) mg/dL Indirect Bilirubin (0.0-0.8) mg/dL AST 212 H (15-37) U/L ALT 102 H (12-78) U/L Alkaline Phosphatase 150 H (45-117) U/L Total Protein 9.3 H (6.4-8.2) g/dL Albumin 4.6 (3.4-5.0) g/dL Lipase 198 (73-393) U/L Urine Color (Yellw/Straw) Urine Clarity (Clear) Urine pH (5.0-8.5) Ur Specific [place] (1.002-1.035) Urine Protein (Neg-Trace) mg/dL Urine Glucose (UA) (Negative) mg/dL Urine Ketones (Negative) mg/dL Urine Occult Blood (Negative) Urine Nitrate (Negative) Urine Bilirubin (Negative) Urine Urobilinogen (Less than 2) mg/dL Ur Leukocyte Esterase (Negative) Urine RBC (0-3) /hpf Hyaline Casts (0-3) /lpf Urine Mucus (Occasional) /lpf Micro UA Comment Ur Microscopic Review Urine Culture Comments Hepatitis A IgM Ab (Nonreactive) Hep Bs Antigen (Nonreactive) Hep B Core IgM Ab (Nonreactive) Hep C IgG Ab (Nonreactive) 04/12/18 04/13/18 04/13/18 Range/Units 22:05 02:18 02:18 WBC (4.0-11.0) th/mm3 RBC (4.50-5.90) mil/mm3 Hgb (13.0-17.0) gm/dL Hct (39.0-51.0) % MCV (80.0-100.0) fL MCH (27.0-34.0) pg MCHC (32.0-36.0) % RDW (11.6-17.2) % Plt Count (150-450) th/mm3 MPV (7.0-11.0) fL Prelim Diff (Auto) Neut % (Auto) (16.0-70.0) % Lymph % (Auto) (9.0-44.0) % Atkinson % (Auto) (0.0-8.0) % Eos % (Auto) (0.0-4.0) % Baso % (Auto) (0.0-2.0) % Neut # (Auto) (1.8-7.7) th/mm3 Lymph # (Auto) (1.0-4.8) th/mm3 Atkinson # (Auto) (0.0-0.9) th/mm3 Eos # (Auto) (0.0-0.4) th/mm3 Baso # (Auto) (0.0-0.2) th/mm3 WBC Differential Diff Scan Differential Comment Platelet Estimate (Normal) Platelet Morphology (Normal) RBC Morphology (Normal) PT (9.8-11.6) sec INR Ratio APTT (24.3-30.1) sec Sodium (136-145) meq/L Potassium (3.5-5.1) meq/L Chloride (98-107) meq/L Carbon Dioxide (21.0-32.0) meq/L Anion Gap (5-15) meq/L BUN (7-18) mg/dL Creatinine (0.60-1.30) mg/dL Estimated GFR (>89) mL/min Random Glucose (74-106) mg/dL Lactic Acid 3.0 H 3.8 H (0.4-2.0) mmol/L Calcium (8.5-10.1) mg/dL Total Bilirubin (0.2-1.0) mg/dL Direct Bilirubin (0.0-0.2) mg/dL Indirect Bilirubin (0.0-0.8) mg/dL AST (15-37) U/L ALT (12-78) U/L Alkaline Phosphatase (45-117) U/L Total Protein (6.4-8.2) g/dL Albumin (3.4-5.0) g/dL Lipase (73-393) U/L Urine Color Yellow (Yellw/Straw) Urine Clarity Clear (Clear) Urine pH 6.0 (5.0-8.5) Ur Specific [place] 1.003 (1.002-1.035) Urine Protein Negative (Neg-Trace) mg/dL Urine Glucose (UA) Negative (Negative) mg/dL Urine Ketones Negative (Negative) mg/dL Urine Occult Blood Negative (Negative) Urine Nitrate Negative (Negative) Urine Bilirubin Negative (Negative) Urine Urobilinogen Less than 2 (Less than 2) mg/dL Ur Leukocyte Esterase Negative (Negative) Urine RBC Less than 1 (0-3) /hpf Hyaline Casts 1 (0-3) /lpf Urine Mucus Few H (Occasional) /lpf Micro UA Comment Culture not ind Ur Microscopic Review Not Reportable Urine Culture Comments Culture not ind Hepatitis A IgM Ab (Nonreactive) Hep Bs Antigen (Nonreactive) Hep B Core IgM Ab (Nonreactive) Hep C IgG Ab (Nonreactive) 04/13/18 04/14/18 04/14/18 Range/Units 02:18 07:46 07:46 WBC 4.6 (4.0-11.0) th/mm3 RBC 4.70 (4.50-5.90) mil/mm3 Hgb 15.2 D (13.0-17.0) gm/dL Hct 42.6 (39.0-51.0) % MCV 90.7 (80.0-100.0) fL MCH 32.3 (27.0-34.0) pg MCHC 35.6 (32.0-36.0) % RDW 12.9 (11.6-17.2) % Plt Count 100 L D (150-450) th/mm3 MPV 8.7 (7.0-11.0) fL Prelim Diff (Auto) Neut % (Auto) 67.3 (16.0-70.0) % Lymph % (Auto) 19.3 (9.0-44.0) % Atkinson % (Auto) 11.8 H (0.0-8.0) % Eos % (Auto) 1.0 (0.0-4.0) % Baso % (Auto) 0.6 (0.0-2.0) % Neut # (Auto) 3.1 (1.8-7.7) th/mm3 Lymph # (Auto) 0.9 L (1.0-4.8) th/mm3 Atkinson # (Auto) 0.5 (0.0-0.9) th/mm3 Eos # (Auto) 0.0 (0.0-0.4) th/mm3 Baso # (Auto) 0.0 (0.0-0.2) th/mm3 WBC Differential . Diff Scan Differential Comment Auto diff final Platelet Estimate (Normal) Platelet Morphology (Normal) RBC Morphology (Normal) PT (9.8-11.6) sec INR Ratio APTT (24.3-30.1) sec Sodium 139 (136-145) meq/L Potassium 4.5 D (3.5-5.1) meq/L Chloride 100 (98-107) meq/L Carbon Dioxide 31.1 (21.0-32.0) meq/L Anion Gap 8 (5-15) meq/L BUN 3 L (7-18) mg/dL Creatinine 1.04 (0.60-1.30) mg/dL Estimated GFR 84 L (>89) mL/min Random Glucose 95 (74-106) mg/dL Lactic Acid (0.4-2.0) mmol/L Calcium 9.0 (8.5-10.1) mg/dL Total Bilirubin 1.9 H (0.2-1.0) mg/dL Direct Bilirubin (0.0-0.2) mg/dL Indirect Bilirubin (0.0-0.8) mg/dL AST 155 H (15-37) U/L ALT 81 H (12-78) U/L Alkaline Phosphatase 136 H (45-117) U/L Total Protein 7.9 D (6.4-8.2) g/dL Albumin 3.8 D (3.4-5.0) g/dL Lipase (73-393) U/L Urine Color (Yellw/Straw) Urine Clarity (Clear) Urine pH (5.0-8.5) Ur Specific [place] (1.002-1.035) Urine Protein (Neg-Trace) mg/dL Urine Glucose (UA) (Negative) mg/dL Urine Ketones (Negative) mg/dL Urine Occult Blood (Negative) Urine Nitrate (Negative) Urine Bilirubin (Negative) Urine Urobilinogen (Less than 2) mg/dL Ur Leukocyte Esterase (Negative) Urine RBC (0-3) /hpf Hyaline Casts (0-3) /lpf Urine Mucus (Occasional) /lpf Micro UA Comment Ur Microscopic Review Urine Culture Comments Hepatitis A IgM Ab Nonreactive (Nonreactive) Hep Bs Antigen Nonreactive (Nonreactive) Hep B Core IgM Ab Nonreactive (Nonreactive) Hep C IgG Ab Nonreactive (Nonreactive) 04/14/18 04/15/18 04/15/18 Range/Units 07:46 08:25 08:25 WBC 6.4 (4.0-11.0) th/mm3 RBC 4.52 (4.50-5.90) mil/mm3 Hgb 14.8 (13.0-17.0) gm/dL Hct 40.6 (39.0-51.0) % MCV 90.0 (80.0-100.0) fL MCH 32.8 (27.0-34.0) pg MCHC 36.4 H (32.0-36.0) % RDW 13.0 (11.6-17.2) % Plt Count 113 L (150-450) th/mm3 MPV 8.9 (7.0-11.0) fL Prelim Diff (Auto) Slide review pending Neut % (Auto) 73.8 H (16.0-70.0) % Lymph % (Auto) 15.6 (9.0-44.0) % Atkinson % (Auto) 10.2 H (0.0-8.0) % Eos % (Auto) 0.2 (0.0-4.0) % Baso % (Auto) 0.2 (0.0-2.0) % Neut # (Auto) 4.7 (1.8-7.7) th/mm3 Lymph # (Auto) 1.0 (1.0-4.8) th/mm3 Atkinson # (Auto) 0.7 (0.0-0.9) th/mm3 Eos # (Auto) 0.0 (0.0-0.4) th/mm3 Baso # (Auto) 0.0 (0.0-0.2) th/mm3 WBC Differential . Diff Scan Auto diff confirmed Differential Comment . Platelet Estimate (Normal) Platelet Morphology (Normal) RBC Morphology (Normal) PT (9.8-11.6) sec INR Ratio APTT (24.3-30.1) sec Sodium (136-145) meq/L Potassium (3.5-5.1) meq/L Chloride (98-107) meq/L Carbon Dioxide (21.0-32.0) meq/L Anion Gap (5-15) meq/L BUN (7-18) mg/dL Creatinine (0.60-1.30) mg/dL Estimated GFR (>89) mL/min Random Glucose (74-106) mg/dL Lactic Acid 0.8 (0.4-2.0) mmol/L Calcium (8.5-10.1) mg/dL Total Bilirubin 2.2 H (0.2-1.0) mg/dL Direct Bilirubin 1.1 H (0.0-0.2) mg/dL Indirect Bilirubin 1.1 H (0.0-0.8) mg/dL AST 99 H (15-37) U/L ALT 72 (12-78) U/L Alkaline Phosphatase 115 (45-117) U/L Total Protein 7.8 (6.4-8.2) g/dL Albumin 3.7 (3.4-5.0) g/dL Lipase (73-393) U/L Urine Color (Yellw/Straw) Urine Clarity (Clear) Urine pH (5.0-8.5) Ur Specific [place] (1.002-1.035) Urine Protein (Neg-Trace) mg/dL Urine Glucose (UA) (Negative) mg/dL Urine Ketones (Negative) mg/dL Urine Occult Blood (Negative) Urine Nitrate (Negative) Urine Bilirubin (Negative) Urine Urobilinogen (Less than 2) mg/dL Ur Leukocyte Esterase (Negative) Urine RBC (0-3) /hpf Hyaline Casts (0-3) /lpf Urine Mucus (Occasional) /lpf Micro UA Comment Ur Microscopic Review Urine Culture Comments Hepatitis A IgM Ab (Nonreactive) Hep Bs Antigen (Nonreactive) Hep B Core IgM Ab (Nonreactive) Hep C IgG Ab (Nonreactive) Imaging Data Radiologist's impression: Abdomen/Pelvis CT 04/12/18 21:55 CONCLUSION: 1. Persistent inflammatory changes of and around the appendix. 2. Small bowel centered inflammatory changes are much milder in the interim but there is an elongated fluid collection in the central and right upper abdomen that I believe is extraluminal and of concern for abscess. 3. Enlarged and fatty infiltrated liver again noted. 4. Unchanged tiny nonobstructing stone of the left kidney. Chest X-Ray 04/12/18 21:55 CONCLUSION: No active disease. CT Consultation 04/13/18 00:00 CONCLUSION: 1. There are fairly diffuse inflammatory changes around the distal ileum and the appendix and the cecum there is a small amount of free fluid. There is no focal, defined drainable abscess collection. Please see above discussion. Liver Ultrasound 04/13/18 00:00 CONCLUSION: 1. The liver is prominent with findings characteristic of hepatic steatosis. 2. The gallbladder is at the upper limits of normal in size with no evidence of cholelithiasis. Discharge Plan Discharge Disposition Patient Disposition: 32 Still Patient Discharge Condition Condition: Stable Discharge Order Discharge Orders: Discharge Order (Routine); Ordered 04/15/18 Ordered By: Geeta Porras Discharge Details Anticipated Discharge Date: 04/15/18 Discharge Comment: Discharge if tolerating oral intake. Leave SAURAV drain in place. Diagnosis: Abdominal abscess Physicians Team ED Provider: Berkley Negron Primary Care Provider: Primary Care Steven,Toya Attending Provider: Nick Jeffrey Other Providers: Komal Andrade ; [facility],Insurance ; Stanley Chatman ; Thomas Hernandez ; Angela Brown ; Silverio Dave Status ED Status: Left Department Discharge Information Discharge Date/Time: 04/13/18 02:30
[2018-04-12 22:19] LABS: Baso # (Auto) 0.1 th/mm3 (0.0-0.2); Baso % (Auto) 0.8 % (0.0-2.0); Eos # (Auto) 0.1 th/mm3 (0.0-0.4); Eos % (Auto) 1.6 % (0.0-4.0); Hematocrit 50.7 % (39.0-51.0); Hemoglobin 18.3 gm/dL (13.0-17.0); Lymph # (Auto) 2.1 th/mm3 (1.0-4.8); Mean Corpuscular Hemoglobin 32.1 pg (27.0-34.0); Mean Corpuscular Volume 89.1 fL (80.0-100.0); Mean Platelet Volume 8.5 fL (7.0-11.0); Mono # (Auto) 0.5 th/mm3 (0.0-0.9); Mono % (Auto) 6.9 % (0.0-8.0); Neut # (Auto) 4.8 th/mm3 (1.8-7.7); Neut % (Auto) 62.7 % (16.0-70.0); Platelet Count 167 th/mm3 (150-450); Red Cell Distribution Width 13.2 % (11.6-17.2); White Blood Count 7.6 th/mm3 (4.0-11.0)
[2018-04-12 22:24] LABS: Mean Corpuscular HGB Conc 36.1 % (32.0-36.0)
[2018-04-12 22:33] LABS: Albumin 4.6 g/dL (3.4-5.0); Anion Gap 14 meq/L (5-15); Aspartate Aminotransferase 212 U/L (15-37); Blood Urea Nitrogen 3 mg/dL (7-18); Calcium 9.1 mg/dL (8.5-10.1); Carbon Dioxide 26.5 meq/L (21.0-32.0); Chloride 97 meq/L (98-107); Glomerular Filtration Rate 88 mL/min (>89); Glucose,Random 110 mg/dL (74-106); Lipase 198 U/L (73-393); Potassium 3.5 meq/L (3.5-5.1); Sodium 137 meq/L (136-145)
[2018-04-12 22:34] LABS: Alanine Aminotransferase 102 U/L (12-78)
[2018-04-12 22:35] LABS: Activated Partial Thrombo Time 26.2 sec (24.3-30.1)
[2018-04-12 22:36] LABS: Alkaline Phosphatase 150 U/L (45-117); Total Protein 9.3 g/dL (6.4-8.2)
[2018-04-12] MEDS ORDERED: Sod Chloride 0.9% Inj 1,000 ML IV.SIG SCH (22:45)
[2018-04-12 22:53] LABS: INR 1.1 Ratio; Prothrombin Time 10.8 sec (9.8-11.6)
[2018-04-12 22:57] LABS: Platelet Estimate Normal (Normal); Platelet Morphology Normal (Normal); RBC Morphology Normal (Normal)
--- NOTE | 2018-04-12 22:57 | XR ---
EXAM DATE: 04/12/2018 10:43 PM EDT AGE/SEX: 32 years / Male INDICATIONS: Right lower chest pain since appendectomy 2 weeks ago. CLINICAL DATA: This is the patient's initial encounter. Patient reports that signs and symptoms have been present for 2 weeks and indicates a pain score of 5/10. MEDICAL/SURGICAL HISTORY: . Appendectomy. COMPARISON: . FINDINGS: A single AP view of the chest demonstrates the lungs to be symmetrically aerated without evidence of mass, infiltrate or effusion. The cardiomediastinal contours are unremarkable. Osseous structures a re intact. CONCLUSION: No active disease. Electronically signed by: Thomas Simmons MD 04/12/2018 10:56 PM EDT
--- NOTE | 2018-04-12 23:56 | CT ---
EXAM DATE: 04/12/2018 11:35 PM EDT AGE/SEX: 32 years / Male INDICATIONS: Abdominal pain 2 weeks post abscess drainage. CLINICAL DATA: This is the patient's initial encounter. Patient reports that signs and symptoms have been present for 2 weeks and indicates a pain score of 6/10. MEDICAL/SURGICAL HISTORY: . Abscess None. ORAL CONTRAST: No oral contrast ingested. RADIATION DOSE: 13.61 CTDI (mGy) COMPARISON: [facility] [place]OM[place] & PELVIS W CONTRAST, 03/14/2018. . TECHNIQUE: Multiple contiguous axial images were obtained through the abdomen and pelvis following b olus infusion of 95 ml Omnipaque 350 (iohexol) nonionic water-soluble contrast as a single exam dos e. No oral contrast ingested. Using automated exposure control and adjustment of the mA and/or kV ac cording to patient size, radiation dose was kept as low as reasonably achievable to obtain optimal di agnostic quality images. DICOM format image data is available electronically for review and comparis on. FINDINGS: Persistent severe inflammatory changes of and around the appendix with some associated adjacent free fluid but no perceptible abscess. The inflammatory changes more centrally in the abdomen around dista l small bowel loops are much less severe, now mild. There is an elongated fluid and air collection in the central to right lower abdomen, best seen on series 2 image 69, that I believe is extraluminal. It is quite elongated but roughly 1.5 cm anterior to posterior, 5.8 cm transverse and 2.3 cm cranioca udal. No bowel obstruction. Enlarged and fatty infiltrated liver again seen. Spleen, pancreas, adrenal glands and right kidney ar e within normal limits. The 1 to 2 mm stone of the mid zone of the left kidney is unchanged. Trace atelectasis of the lung bases. No acute bony abnormality. CONCLUSION: 1. Persistent inflammatory changes of and around the appendix. 2. Small bowel centered inflammatory changes are much milder in the interim but there is an elongate d fluid collection in the central and right upper abdomen that I believe is extraluminal and of christiano rn for abscess. 3. Enlarged and fatty infiltrated liver again noted. 4. Unchanged tiny nonobstructing stone of the left kidney. Electronically signed by: Bharat Hernandez MD 04/12/2018 11:55 PM EDT
[2018-04-13] MEDS ORDERED: Piperacil/Tazo 3.375 GM Premix 50 ML IV.SIG ONE (00:11)
[2018-04-13] MEDS ORDERED: Morphine Inj 4 MG/ML Vial IV.PUSH ONE (00:12)
[2018-04-13] MEDS ORDERED: Naloxone Inj 0.4 MG/ML Vial IV.PUSH PRN (00:30)
[2018-04-13] MEDS ORDERED: Morphine Inj 4 MG/ML Vial IV.PUSH PRN (00:30)
--- NOTE | 2018-04-13 01:35 | P.HPIM ---
History of Present Illness Primary Care Physician: No Primary Care Physician History of Present Illness: 32-year-old male with recent admission at this facility 03/14 through 03/18 with right lower quadrant pain, suspected appendicitis, undergoing diagnostic laparoscopy with appearance of possible Crohn's disease, not appendicitis with ileal biopsy inconclusive. Peritoneal fluid positive for ESBL E. coli and beta strep for which infectious disease was consulted and patient was treated with levofloxacin and Flagyl to complete 14-day course. Patient was discharged with SAURAV drain in place, however this was removed by Dr. Dave 2 weeks ago. Patient presents now with a 3-day history of nausea and bilious vomiting, with now a 5- hour history of acute intermittent, sharp nonradiating right lower quadrant pain. Patient reports chills but no fevers. Patient reports right-sided abdominal pain worse with a deep breath since the surgery. Patient also noted to have history of fatty liver likely secondary to alcohol and soda. Patient had been advised to stop alcohol. Patient reports drinking several drinks 2 days ago as well as a shot of liquor on 04/12. Inpatient Certification: I certify that the inpatient services were ordered in accordance with Medicare regulations governing the order. This includes certification that hospital inpatient services are reasonable and necessary and in the case of services not specified as inpatient-only under 42 CFR 419.22(n), that they are appropriately provided as inpatient services in accordance to with the 2-midnight benchmark under 43 CFR 412.3(e) Estimated Total Length of Stay (Days): 2 Plans for Post Hospital Care: Home Review of Systems All other systems reviewed negative except as stated in HPI [facility] - History History Provided By: Patient - Medical History Medical History: Medical History (Last Reviewed 04/13/18 @ 01:31 by Yfn Amaya MD) Fracture, mandible - Surgical History Surgical History: Surgical History (Last Updated 04/13/18 @ 01:31 by Yfn Amaya MD) H/O exploratory laparotomy History of herniorrhaphy - Family History Family History: Family History (Last Reviewed 04/13/18 @ 01:31 by Yfn Amaya MD) Mother Healthy adult Father Diabetes - Tobacco History Second Hand Smoke Exposure: No Smoking Status: Never smoker Tobacco Type: Cigarettes - Alcohol History How Often Do You Have a Drink Containing Alcohol: 2 to 3 times a week - Substance Use History Substance History: Past History - Substance Use Type Marijuana Status: Sustained Remission Route Used: Inhalation Last Used: YEARS AGO - Travel History Recent Travel in the [place] Within the Last 8 Weeks: No Recent Travel Out of the Country Within the Last 8 Weeks: No - Immunization History Tetanus Immunization: <5 Years Medications and Allergies Active Medications: Active Medications Sodium Chloride (Ns Inj) 1,000 mls @ 0 mls/hr IV.SIG BOLUS LEE Piperacillin/Tazobactam/Dextrose (Zosyn 4.5 Gm Premix) 4.5 gm in 100 mls @ 200 mls/hr IV.SIG Q6H LEE Sodium Chloride (Ns Inj) 1,000 mls @ 100 mls/hr IV.CONT .Q10H LEE Morphine Sulfate (Morphine Inj) 2 mg IV.PUSH Q3H PRN PRN Reason: PAIN 3-5; IF UABLE TO TAKE PO Morphine Sulfate (Morphine Inj) 4 mg IV.PUSH Q3H PRN PRN Reason: PAIN 6-10;IF UNABLE TO TAKE PO Morphine Sulfate (Morphine Inj) 4 mg IV.PUSH Q3H PRN PRN Reason: BREAKTHROUGH PAIN Naloxone HCl (Narcan Inj) 0.4 mg IV.PUSH UNSCH PRN PRN Reason: SEE LABEL COMMENTS Ondansetron HCl (Zofran Inj) 4 mg IV.PUSH Q6H PRN PRN Reason: NAUSEA OR VOMITING Oxycodone/Acetaminophen (Percocet 10/325 Mg) 1 tab PO Q6H PRN PRN Reason: PAIN SCALE 6 TO 10 Oxycodone/Acetaminophen (Percocet 5/325 Mg) 1 tab PO Q6H PRN PRN Reason: PAIN SCALE 3 TO 5 Sodium Chloride (Ns Flush) 2 ml IV.FLUSH PRN PRN PRN Reason: FLUSH AFTER USING IV ACCESS Allergies Allergy/AdvReac Type Severity Reaction Status Date / Time clindamycin Allergy Severe RASH Verified 04/12/18 21:33 Sulfa (Sulfonamide Allergy Severe Rash Verified 04/12/18 21:33 Antibiotics) Exam Vital signs: Vital Signs 04/12/18 21:28 Temperature 98.1 F Pulse Rate 112 H Respiratory Rate 16 Blood Pressure 153/97 H Pulse Oximetry 99 Intake & Output 04/12/18 04/12/18 04/13/18 06:59 18:59 06:59 Weight 90.265 kg Narrative: GENERAL: Sitting up in bed. Appears uncomfortable. Alert and oriented x3. SKIN: Warm and dry. HEAD: Atraumatic. Normocephalic. EYES: Pupils equal and round. No scleral icterus. No injection or drainage. ENT: No nasal bleeding or discharge. Mucous membranes pink and moist. NECK: Trachea midline. No JVD. CARDIOVASCULAR: Regular rate and rhythm. RESPIRATORY: No accessory muscle use. Clear to auscultation. Breath sounds equal bilaterally. GASTROINTESTINAL: Abdomen soft, nondistended. Right lower quadrant tenderness to palpation. Subcentimeter scar right lower quadrant from SAURAV drain healing. No rebound or guarding. MUSCULOSKELETAL: Extremities without clubbing, cyanosis, or edema. No obvious deformities. NEUROLOGICAL: Awake and alert. No obvious cranial nerve deficits. Motor grossly within normal limits. Five out of 5 muscle strength in the arms and legs. Normal speech. PSYCHIATRIC: Appropriate mood and affect; insight and judgment normal. Results - Labs CBC & Chem 7: 04/12/18 22:05 04/12/18 22:05 Labs: Short CBC 04/12/18 Range/Units 22:05 WBC 7.6 (4.0-11.0) th/mm3 Hgb 18.3 H (13.0-17.0) gm/dL Hct 50.7 (39.0-51.0) % Plt Count 167 D (150-450) th/mm3 BMP 04/12/18 22:05 Sodium 137 Potassium 3.5 Chloride 97 L Carbon Dioxide 26.5 BUN 3 L Creatinine 1.00 Calcium 9.1 Liver Function 04/12/18 Range/Units 22:05 Total Bilirubin 1.5 H (0.2-1.0) mg/dL AST 212 H (15-37) U/L ALT 102 H (12-78) U/L Alkaline Phosphatase 150 H (45-117) U/L Albumin 4.6 (3.4-5.0) g/dL - Imaging Impressions Abdomen/Pelvis CT 04/12/18 21:55 CONCLUSION: 1. Persistent inflammatory changes of and around the appendix. 2. Small bowel centered inflammatory changes are much milder in the interim but there is an elongated fluid collection in the central and right upper abdomen that I believe is extraluminal and of concern for abscess. 3. Enlarged and fatty infiltrated liver again noted. 4. Unchanged tiny nonobstructing stone of the left kidney. Chest X-Ray 04/12/18 21:55 CONCLUSION: No active disease. Caprini VTE Risk Assessment Caprini VTE Risk Assessment: No/Low Risk (score <= 1) Caprini Risk Assessment Model: Point Value = 1 Point Value = 2 Point Value = 3 Point Value = 5 Age 41-60 Minor surgery BMI > 25 kg/m2 Swollen legs Varicose veins or History of unexplained or recurrent spontaneous Oral contraceptives or hormone replacement Sepsis (< 1 month) Serious lung disease, including pneumonia (< 1 month) Abnormal pulmonary function Acute myocardial infarction Congestive heart failure (< 1 month) History of inflammatory bowel disease Medical patient at bed rest Age 61-74 Arthroscopic surgery Major open surgery (> 45 min) Laparoscopic surgery (> 45 min) Malignancy Confined to bed (> 72 hours) Immobilizing plaster cast Central venous access Age >= 75 History of VTE Family history of VTE Factor V Leiden Prothrombin [id number] Lupus anticoagulant Anticardiolipin antibodies Elevated serum homocysteine Heparin-induced thrombocytopenia Other congenital or acquired thrombophilia Stroke (< 1 month) Elective arthroplasty Hip, pelvis, or leg fracture Acute spinal cord injury (< 1 month) Prophylaxis Regimen: Total Risk Factor Score Risk Level Prophylaxis Regimen 0-1 Low Early ambulation 2 Moderate Order ONE of the following: *Sequential Compression Device (SCD) *Heparin 5000 units SQ BID 3-4 Higher Order ONE of the following medications: *Heparin 5000 units SQ TID *Enoxaparin/Lovenox 40 mg SQ daily (WT < 150 kg, CrCl > 30 mL/min) *Enoxaparin/Lovenox 30 mg SQ daily (WT < 150 kg, CrCl > 10-29 mL/min) *Enoxaparin/Lovenox 30 mg SQ BID (WT < 150 kg, CrCl > 30 mL/min) AND/OR *Sequential Compression Device (SCD) 5 or more Highest Order ONE of the following medications: *Heparin 5000 units SQ TID (Preferred with Epidurals) *Enoxaparin/Lovenox 40 mg SQ daily (WT < 150 kg, CrCl > 30 mL/min) *Enoxaparin/Lovenox 30 mg SQ daily (WT < 150 kg, CrCl > 10-29 mL/min) *Enoxaparin/Lovenox 30 mg SQ BID (WT < 150 kg, CrCl > 30 mL/min) AND *Sequential Compression Device (SCD) Assessment and Plan - Plan //Acute right lower quadrant abdominal abscess //Possible appendicitis. //History of ESBL E. coli right lower quadrant abscess earlier this month //Suspected sepsis. Tachycardia on admission, right lower quadrant abdominal abscess, elevated lactic acid = CT abdomen personally reviewed. Persistent inflammatory change around the appendix. Fluid collection concerning for abscess = With acute onset of pain on 04/12 Broad-spectrum antibiotics. Blood cultures pending Consult infectious disease and general surgery. Appreciate assistance. //Lactic acidosis. Lactic acid 3.0. Likely secondary to infection versus fatty liver. Thiamine given. Follow-up repeat //Alcoholic steatohepatitis //Transaminitis. -Patient with known history of steatohepatitis, advised not drink, however has been drinking. Cessation counseling provided. Liver ultrasound and hepatitis profile will follow labs. Discussed Condition With: Patient, nurse, ED physician.
[2018-04-13] MEDS: Sod Chloride 0.9% Inj 1,000 ML IV.CONT SCH ×2 (02:35→12:38)
[2018-04-13 02:36] LABS: Bilirubin,Urine Negative (Negative); Clarity,Urine Clear (Clear); Color,Urine Yellow (Yellw/Straw); Glucose,Urine (UA) Negative (Negative); Hyaline Casts,Urine 1 /lpf (0-3); Leukocyte Esterase,Urine Negative (Negative); Mucus,Urine Few /lpf (Occasional); Nitrite,Urine Negative (Negative); Specific Gravity,Urine 1.003 (1.002-1.035)
[2018-04-13] MEDS: Morphine Inj 4 MG/ML Vial IV.PUSH PRN ×3 (03:11→11:00)
[2018-04-13 03:45] LABS: Hepatitis A IgM Antibody Nonreactive (Nonreactive); Hepatitits B Surface Antigen Nonreactive (Nonreactive)
[2018-04-13] MEDS: Piperacil/Tazo 4.5 GM Premix 4.5 GM/100 ML BAG IV.SIG SCH ×3 (05:02→17:37)
--- NOTE | 2018-04-13 11:32 | P.CON ---
History of Present Illness Consult date: 04/13/18 Reason for Consult: Intra-abdominal abscess Primary Care Provider: No Primary Care Physician History of Present Illness: Patient is a 32-year-old male well-known to me who previously presented with acute abdominal pain and question of acute appendicitis; however when the patient underwent laparoscopy, he was found to have a large amount of purulent material in the abdomen and inflammatory process in the last 2-3 feet of small bowel with creeping fat. Given these findings, performing appendectomy would result likely result in a fistula and thus the patient simply had washout and antibiotics. He improved and was actually seen in the office about 2 weeks ago and had the drain removed. He started having increasing pain on the right side and return to the hospital where CT scan demonstrates inflammatory process near the appendix and fluid in the periappendiceal region. He reports he is extremely thirsty at this time. [facility] - History History Provided By: Patient - Medical History Medical History: Medical History (Last Reviewed 04/13/18 @ 01:31 by Yfn Amaya MD) Fracture, mandible - Surgical History Surgical History: Surgical History (Last Updated 04/13/18 @ 01:31 by Yfn Amaya MD) H/O exploratory laparotomy History of herniorrhaphy - Family History Family History: Family History (Last Reviewed 04/13/18 @ 01:31 by Yfn Amyaa MD) Mother Healthy adult Father Diabetes - Tobacco History Second Hand Smoke Exposure: No Smoking Status: Never smoker Tobacco Type: Cigarettes - Alcohol History How Often Do You Have a Drink Containing Alcohol: 2 to 3 times a week - Substance Use History Substance History: No History of Abuse - Substance Use Type Marijuana Status: Sustained Remission Route Used: Inhalation Last Used: YEARS AGO - Travel History Recent Travel in the [place] Within the Last 8 Weeks: No Recent Travel Out of the Country Within the Last 8 Weeks: No - Immunization History Tetanus Immunization: >5 Years Hx Influenza Vaccine This Season: No Medications and Allergies Active Medications: Active Medications Sodium Chloride (Ns Inj) 1,000 mls @ 0 mls/hr IV.SIG BOLUS LEE Piperacillin/Tazobactam/Dextrose (Zosyn 4.5 Gm Premix) 4.5 gm in 100 mls @ 200 mls/hr IV.SIG Q6H LEE Last Infusion: 04/13/18 05:56 Dose: Infused Sodium Chloride (Ns Inj) 1,000 mls @ 100 mls/hr IV.CONT .Q10H LEE Last Admin: 04/13/18 02:35 Dose: 100 mls/hr Morphine Sulfate (Morphine Inj) 2 mg IV.PUSH Q3H PRN PRN Reason: PAIN 3-5; IF UABLE TO TAKE PO Morphine Sulfate (Morphine Inj) 4 mg IV.PUSH Q3H PRN PRN Reason: PAIN 6-10;IF UNABLE TO TAKE PO Last Admin: 04/13/18 11:00 Dose: 4 mg Morphine Sulfate (Morphine Inj) 4 mg IV.PUSH Q3H PRN PRN Reason: BREAKTHROUGH PAIN Naloxone HCl (Narcan Inj) 0.4 mg IV.PUSH UNSCH PRN PRN Reason: SEE LABEL COMMENTS Ondansetron HCl (Zofran Inj) 4 mg IV.PUSH Q6H PRN PRN Reason: NAUSEA OR VOMITING Last Admin: 04/13/18 05:04 Dose: 4 mg Oxycodone/Acetaminophen (Percocet 10/325 Mg) 1 tab PO Q6H PRN PRN Reason: PAIN SCALE 6 TO 10 Oxycodone/Acetaminophen (Percocet 5/325 Mg) 1 tab PO Q6H PRN PRN Reason: PAIN SCALE 3 TO 5 Sodium Chloride (Ns Flush) 2 ml IV.FLUSH PRN PRN PRN Reason: FLUSH AFTER USING IV ACCESS Allergies Allergy/AdvReac Type Severity Reaction Status Date / Time clindamycin Allergy Severe RASH Verified 04/12/18 21:33 Sulfa (Sulfonamide Allergy Severe Rash Verified 04/12/18 21:33 Antibiotics) Physical Exam Vital signs: Vital Signs 04/12/18 21:28 04/13/18 04:00 04/13/18 08:00 Temperature 98.1 F 98.4 F 98.3 F Pulse Rate 112 H 104 H 117 H Respiratory Rate 16 20 18 Blood Pressure 153/97 H 118/77 135/77 Pulse Oximetry 99 96 96 Intake & Output 04/12/18 04/13/18 04/13/18 18:59 06:59 18:59 Intake Total 1150 / 1150 Balance 1150 / 1150 Weight 90.265 kg Intake: IV 1150 / 1150 Zosyn 3.375 GM Premix 50 ML @ 50 / 50 100 mls/hr IV.SIG ONCE ONE Rx#: [id number] Zosyn 4.5 GM Premix 4.5 gm In 100 / 100 100 ml @ 200 mls/hr IV.SIG Q6H [facility] Rx#:[id number] Oral 0 / 0 Other: # Voids 1 # Emeses 6 Weight On Admission 90.265 kg - Constitutional mild distress - Routine HEENT Exam Head: Present: normocephalic, atraumatic ENT: Present: mucous membranes moist - Routine Neck Exam Present: supple - Routine Respiratory Exam Present: CTA bilaterally - Routine Cardiovascular Exam Present: RRR - Routine Abdominal Exam Present: soft, tenderness (Right lower quadrant and suprapubic region) - Routine Skin Exam Present: intact - Routine Neurological Exam Present: alert, oriented X3 - Routine Psychiatric Exam Present: normal affect Assessment and Plan - Assessment (1) Abdominal pain Code(s): R10.9 - Unspecified abdominal pain Status: Acute (2) Crohn's disease of ileum Code(s): K50.00 - Crohn's disease of small intestine without complications Status: Acute (3) Abdominal abscess Status: Acute Plan: Request placed for interventional radiology to place a drain. Would recommend gastroenterology to see the patient and consider colonoscopy during this hospital stay so that definitive diagnosis can be achieved. If medical treatment is unsuccessful, I have discussed with the patient that he will require an ileocecal resection to control his disease. He vocalizes clear understanding of this and simply wants to drink some fluids as he is quite thirsty. - Plan Discussed Condition With: Patient Nurse Dr. Vinny Schroeder - Attending Attestation I attest that I had a [id number] encounter with the patient on the same day, and personally performed and documented my assessment and findings in the medical record. The following services were provided during this hospital visit: Chart data review, vital sign assessments/reviewing monitor data Review of consultation notes if present Medication orders/review and/or management Ordering and/or reviewing lab tests Ordering and/or interpreting/reviewing x-rays and/or diagnostic studies Care of the patient and discussion of the patient with the care team Documentation time To help prompt me to consider important information that might be impacting today's encounter and assessment, Information from prior notes written by myself or my colleagues may have been "brought forward/copy and pasted" into today's note.
--- NOTE | 2018-04-13 12:30 | P.CONID ---
History of Present Illness Service: Infectious disease Consult date: 04/13/18 Requesting Physician: Yfn Amaya Reason for Consult: Evaluate patient with abscess, history of ESBL Primary Care Provider: No Primary Care Physician History of Present Illness: Patient seen and examined. Records reviewed. Patient is a 32-year-old male, who was initially hospitalized March 14 - March 18 and at that time he was complaining of significant abdominal pain. Imaging studies showed suggestion of appendicitis, and he underwent diagnostic laparoscopy. There was evidence of significant inflammation of the bowels and some purulent fluid in the bowel and this was sent for culture. Pathology report showed surface exudate. The diagnosis at that time is that he has some kind of inflammatory bowel disease such as Crohn's disease. Culture of the fluid grew ESBL positive organism and strep. Patient was discharged on antibiotics and he had a SAURAV drain as well. He completed the antibiotic and he was doing well and was seen in follow-up by the surgeon about 2 weeks ago and the drain was removed. Patient presented with 3-4-day history this time of nausea and vomiting. He also started having right-sided abdominal pain about 1 day prior to admission. Is also had some loose stools, but did not see any blood. Patient has not had any GI follow-up as an outpatient. He denies any fever chills or sweats. Denies any respiratory or any urinary complaints. On admission patient has not been febrile. His WBC is normal. CT of the abdomen and pelvis showing inflammatory process near the appendix and fluid in the periappendiceal region. Infectious disease consultation has been requested to assist with evaluation and treatment. Review of Systems Constitutional: Reports lack of energy, Denies chills, Denies fever(s), Denies night sweats Eyes: Denies discharge, Denies dry eyes Ears, Nose, Mouth, and Throat: Denies difficulty swallowing, Denies ear pain, Denies mouth pain, Denies nasal congestion, Denies nasal discharge, Denies sore throat Cardiovascular: Denies chest pain, Denies shortness of breath Respiratory: Denies chest congestion, Denies cough, Denies shortness of breath Gastrointestinal: Reports abdominal pain, Reports loose stools, Reports nausea, Reports vomiting, Denies pain with swallowing Genitourinary: Denies difficulty urinating, Denies painful urination Musculoskeletal: Denies joint pain, Denies joint swelling Skin/Breast: Denies rash, Denies wounds Neurologic: Denies headache(s) Psychiatric: Denies confusion PMFSH - History History Provided By: Patient - Medical History Medical History: Medical History (Last Reviewed 04/13/18 @ 12:25 by Angela Brown MD) Fracture, mandible - Surgical History Surgical History: Surgical History (Last Reviewed 04/14/18 @ 11:00 by Angela Brown MD) History of laparoscopy History of herniorrhaphy - Family History Family History: Family History (Last Reviewed 04/13/18 @ 12:25 by Angela Brown MD) Mother Healthy adult Father Diabetes - Tobacco History Second Hand Smoke Exposure: No Smoking Status: Never smoker Tobacco Type: Cigarettes - Alcohol History How Often Do You Have a Drink Containing Alcohol: 2 to 3 times a week - Substance Use History Substance History: No History of Abuse - Substance Use Type Marijuana Status: Sustained Remission Route Used: Inhalation Last Used: YEARS AGO - Travel History Recent Travel in the [facility] Within the Last 8 Weeks: No Recent Travel Out of the Country Within the Last 8 Weeks: No - Immunization History Tetanus Immunization: >5 Years Hx Influenza Vaccine This Season: No Medications and Allergies Active Medications: Active Medications Sodium Chloride (Ns Inj) 1,000 mls @ 0 mls/hr IV.SIG BOLUS LEE Piperacillin/Tazobactam/Dextrose (Zosyn 4.5 Gm Premix) 4.5 gm in 100 mls @ 200 mls/hr IV.SIG Q6H [facility] Last Infusion: 04/13/18 05:56 Dose: Infused Sodium Chloride (Ns Inj) 1,000 mls @ 100 mls/hr IV.CONT .Q10H [facility] Last Infusion: 04/13/18 12:07 Dose: Infused Morphine Sulfate (Morphine Inj) 2 mg IV.PUSH Q3H PRN PRN Reason: PAIN 3-5; IF UABLE TO TAKE PO Morphine Sulfate (Morphine Inj) 4 mg IV.PUSH Q3H PRN PRN Reason: PAIN 6-10;IF UNABLE TO TAKE PO Last Admin: 04/13/18 11:00 Dose: 4 mg Morphine Sulfate (Morphine Inj) 4 mg IV.PUSH Q3H PRN PRN Reason: BREAKTHROUGH PAIN Naloxone HCl (Narcan Inj) 0.4 mg IV.PUSH UNSCH PRN PRN Reason: SEE LABEL COMMENTS Ondansetron HCl (Zofran Inj) 4 mg IV.PUSH Q6H PRN PRN Reason: NAUSEA OR VOMITING Last Admin: 04/13/18 05:04 Dose: 4 mg Oxycodone/Acetaminophen (Percocet 10/325 Mg) 1 tab PO Q6H PRN PRN Reason: PAIN SCALE 6 TO 10 Oxycodone/Acetaminophen (Percocet 5/325 Mg) 1 tab PO Q6H PRN PRN Reason: PAIN SCALE 3 TO 5 Sodium Chloride (Ns Flush) 2 ml IV.FLUSH PRN PRN PRN Reason: FLUSH AFTER USING IV ACCESS Allergies Allergy/AdvReac Type Severity Reaction Status Date / Time clindamycin Allergy Severe RASH Verified 04/12/18 21:33 Sulfa (Sulfonamide Allergy Severe Rash Verified 04/12/18 21:33 Antibiotics) Exam Vital signs: Vital Signs 04/12/18 21:28 04/13/18 04:00 04/13/18 08:00 Temperature 98.1 F 98.4 F 98.3 F Pulse Rate 112 H 104 H 117 H Respiratory Rate 16 20 18 Blood Pressure 153/97 H 118/77 135/77 Pulse Oximetry 99 96 96 Intake & Output 04/12/18 04/13/18 04/13/18 18:59 06:59 18:59 Intake Total 1150 / 1150 1000 / 1000 Balance 1150 / 1150 1000 / 1000 Weight 90.265 kg Intake: IV 1150 / 1150 1000 / 1000 NS Inj 1,000 ML @ 100 mls/hr IV 1000 / 1000 .CONT .Q10H [facility] Rx#:[id number] Zosyn 3.375 GM Premix 50 ML @ 50 / 50 100 mls/hr IV.SIG ONCE ONE Rx#: [id number] Zosyn 4.5 GM Premix 4.5 gm In 100 / 100 100 ml @ 200 mls/hr IV.SIG Q6H [facility] Rx#:[id number] Oral 0 / 0 Other: # Voids 1 # Emeses 6 Weight On Admission 90.265 kg Narrative: Physical Examination GENERAL: Patient is a well-nourished, well-developed male, awake and alert, not in respiratory distress. SKIN: Cool and dry. No generalized rash, no ecchymoses. Has some acne lesions , pustules scattered in the back. HEAD: Atraumatic. Normocephalic. No temporal wasting, or tenderness. EYES: [place] conjunctiva. No petechia or hemorrhage. Pupils equal, round and reactive to light. Extraocular movements full and intact. No scleral icterus. No injection or drainage. EARS, NOSE AND THROAT: Nose without bleeding or purulent nasal discharge. No sinus tenderness. Mucous membranes pink and moist. No oral lesions noted. Some white coating on his tongue NECK: Trachea midline. Supple and not tender, no meningeal signs CARDIOVASCULAR: Regular rate and rhythm. No murmurs, rubs or gallops heard RESPIRATORY: Clear to auscultation. Breath sounds equal bilaterally. No rales , wheezing or rhonchi ABDOMEN: Soft, nondistended. Healed incision on RLQ, mild tenderness R side of abdomen, no guarding or rebound. Bowel sounds present and normoactive. No guarding. No rebound. No organomegaly. EXTREMITIES: No clubbing, cyanosis, or edema. No joint effusion, has good ROM. No calf tenderness. Well perfused and warm. NEUROLOGICAL: Awake and alert. Cranial nerves grossly intact. Motor grossly within normal limits. PSYCHIATRIC: Normal affect, calm and cooperative. LINE: No evidence of infection Results - Labs CBC & Chem 7: 04/14/18 07:46 04/14/18 07:46 Labs: Laboratory Results - last 24 hr 04/12/18 04/12/18 04/12/18 22:05 22:05 22:05 WBC 7.6 RBC 5.70 Hgb 18.3 H Hct 50.7 MCV 89.1 MCH 32.1 MCHC 36.1 H RDW 13.2 Plt Count 167 D MPV 8.5 Prelim Diff (Auto) Slide review pending Neut % (Auto) 62.7 Lymph % (Auto) 28.0 [place] % (Auto) 6.9 Eos % (Auto) 1.6 Baso % (Auto) 0.8 Neut # (Auto) 4.8 Lymph # (Auto) 2.1 Jackson # (Auto) 0.5 Eos # (Auto) 0.1 Baso # (Auto) 0.1 WBC Differential . Diff Scan Auto diff confirmed Differential Comment . Platelet Estimate Normal Platelet Morphology Normal RBC Morphology Normal PT 10.8 INR 1.1 APTT 26.2 Sodium 137 Potassium 3.5 Chloride 97 L Carbon Dioxide 26.5 Anion Gap 14 BUN 3 L Creatinine 1.00 Estimated GFR 88 L Random Glucose 110 H Lactic Acid Calcium 9.1 Total Bilirubin 1.5 H AST 212 H ALT 102 H Alkaline Phosphatase 150 H Total Protein 9.3 H Albumin 4.6 Lipase 198 Urine Color Urine Clarity Urine pH Ur Specific [place] Urine Protein Urine Glucose (UA) Urine Ketones Urine Occult Blood Urine Nitrate Urine Bilirubin Urine Urobilinogen Ur Leukocyte Esterase Urine RBC Hyaline Casts Urine Mucus Micro UA Comment Ur Microscopic Review Urine Culture Comments Hepatitis A IgM Ab Hep Bs Antigen Hep B Core IgM Ab Hep C IgG Ab 04/12/18 04/13/18 04/13/18 22:05 02:18 02:18 WBC RBC Hgb Hct MCV MCH MCHC RDW Plt Count MPV Prelim Diff (Auto) Neut % (Auto) Lymph % (Auto) [place] % (Auto) Eos % (Auto) Baso % (Auto) Neut # (Auto) Lymph # (Auto) Jackson # (Auto) Eos # (Auto) Baso # (Auto) WBC Differential Diff Scan Differential Comment Platelet Estimate Platelet Morphology RBC Morphology PT INR APTT Sodium Potassium Chloride Carbon Dioxide Anion Gap BUN Creatinine Estimated GFR Random Glucose Lactic Acid 3.0 H 3.8 H Calcium Total Bilirubin AST ALT Alkaline Phosphatase Total Protein Albumin Lipase Urine Color Yellow Urine Clarity Clear Urine pH 6.0 Ur Specific [place] 1.003 Urine Protein Negative Urine Glucose (UA) Negative Urine Ketones Negative Urine Occult Blood Negative Urine Nitrate Negative Urine Bilirubin Negative Urine Urobilinogen Less than 2 Ur Leukocyte Esterase Negative Urine RBC Less than 1 Hyaline Casts 1 Urine Mucus Few H Micro UA Comment Culture not ind Ur Microscopic Review Not Reportable Urine Culture Comments Culture not ind Hepatitis A IgM Ab Hep Bs Antigen Hep B Core IgM Ab Hep C IgG Ab 04/13/18 02:18 WBC RBC Hgb Hct MCV MCH MCHC RDW Plt Count MPV Prelim Diff (Auto) Neut % (Auto) Lymph % (Auto) [place] % (Auto) Eos % (Auto) Baso % (Auto) Neut # (Auto) Lymph # (Auto) Jackson # (Auto) Eos # (Auto) Baso # (Auto) WBC Differential Diff Scan Differential Comment Platelet Estimate Platelet Morphology RBC Morphology PT INR APTT Sodium Potassium Chloride Carbon Dioxide Anion Gap BUN Creatinine Estimated GFR Random Glucose Lactic Acid Calcium Total Bilirubin AST ALT Alkaline Phosphatase Total Protein Albumin Lipase Urine Color Urine Clarity Urine pH Ur Specific [place] Urine Protein Urine Glucose (UA) Urine Ketones Urine Occult Blood Urine Nitrate Urine Bilirubin Urine Urobilinogen Ur Leukocyte Esterase Urine RBC Hyaline Casts Urine Mucus Micro UA Comment Ur Microscopic Review Urine Culture Comments Hepatitis A IgM Ab Nonreactive Hep Bs Antigen Nonreactive Hep B Core IgM Ab Nonreactive Hep C IgG Ab Nonreactive - Imaging Impressions Abdomen/Pelvis CT 04/12/18 21:55 CONCLUSION: 1. Persistent inflammatory changes of and around the appendix. 2. Small bowel centered inflammatory changes are much milder in the interim but there is an elongated fluid collection in the central and right upper abdomen that I believe is extraluminal and of concern for abscess. 3. Enlarged and fatty infiltrated liver again noted. 4. Unchanged tiny nonobstructing stone of the left kidney. Chest X-Ray 04/12/18 21:55 CONCLUSION: No active disease. Assessment and Plan - Plan Impression RLQ pain, with fluid collection and continued inflammatory changes in the abdomen, previously had diagnostic laparoscopy, likely has ongoing inflammatory bowel disease -Previous culture of the exudate with ESBL positive organism and strep Possible inflammatory bowel disease, Crohn's disease Recommendation Agree with IV Zosyn Follow culture IR consult has been ordered to put a drain in the fluid collection on the right side of the abdomen -We will send fluid for culture Adjust antibiotics once cultures are available Monitor progress GI has been consulted to complete workup for inflammatory bowel disease I will determine course of antibiotic once workup is completed I will follow along with you Thank you for this consultation Explained plan to the patient
--- NOTE | 2018-04-13 13:15 | P.CONGI ---
History of Present Illness Consult date: 04/13/18 Consult reason: Crohn's disease, new diagnosis Chief complaint: Intraabdominal Abscess, Appendicitis History of Present Illness: This is a well-nourished 32-year-old male who came into the hospital on 2017 with uncontrolled diarrhea at least 3 times a day brown watery stools without any blood. Patient also had a 3-day history before this admission date of nausea and vomiting with dark bilious fluid. Patient now continues with some upper abdominal pain nausea and uncontrolled vomiting; no dyspepsia and no dysphasia. According to the record and patient he was recently in the hospital and discharged on 03 18 with suspected appendicitis and underwent diagnostic laparoscopy. Patient was sent home with a drain which was removed approximately 2 weeks ago but patient's abdominal pain along with nausea and vomiting symptoms reappeared patient denies any fever or chills and has been unable to take a deep breath since the surgery. Gastroenterology also saw patient during this period of time because CT scan showed possible Crohn's disease. Patient did have elevated white count and normal hemoglobin at 15.3. Patient's enteritis and colitis noted on CT mostly involved the ileum, and possible fatty liver noted. Patient was to follow-up in the office but has not had a chance to secondary to his current symptoms. Patient initially denied any family history of colon cancer but does note now his grandfather just from rectal cancer. No previous EGD or colonoscopy. Patient did note EtOH consumption up until approximately 3 and half months ago, but last week patient did consume several alcoholic drinks which seemed to exacerbate his symptoms within 24 hours. Patient does note an NSAID usage with ibuprofen and steroids as a teen but none now. Gastroenterology was reconsulted to assist in his care. Lab work reviewed which now shows hemoglobin 18.3, WBC count 7.6, PT/INR 1.1, increased bilirubin 1.5, and transaminitis AST 212 and ALT 102 which was normal back on 03/16/2018. Over the last few days patient notes loose diarrhea stool usually once a day or every other day. <Allyson Stewart - Last Filed: 04/13/18 14:02> Review of Systems All other systems reviewed negative except as stated in HPI <Allyson Stewart - Last Filed: 04/13/18 14:02> PMFSH - History History Provided By: Patient - Medical History Medical History: Medical History (Last Reviewed 04/13/18 @ 12:25 by Angela Brown MD) Fracture, mandible - Surgical History Surgical History: Surgical History (Last Updated 04/13/18 @ 12:25 by Angela Brown MD) History of laparoscopy History of herniorrhaphy - Family History Family History: Family History (Last Reviewed 04/13/18 @ 12:25 by Angela Brown MD) Mother Healthy adult Father Diabetes - Tobacco History Second Hand Smoke Exposure: No Smoking Status: Never smoker Tobacco Type: Cigarettes - Alcohol History How Often Do You Have a Drink Containing Alcohol: 2 to 3 times a week - Substance Use History Substance History: No History of Abuse - Substance Use Type Marijuana Status: Sustained Remission Route Used: Inhalation Last Used: YEARS AGO - Travel History Recent Travel in the [facility] Within the Last 8 Weeks: No Recent Travel Out of the Country Within the Last 8 Weeks: No - Immunization History Tetanus Immunization: >5 Years Hx Influenza Vaccine This Season: No <Allyson Stewart - Last Filed: 04/13/18 14:02> - Medical History Medical History: Medical History (Last Reviewed 04/13/18 @ 12:25 by Angela Brown MD) Fracture, mandible - Surgical History Surgical History: Surgical History (Last Updated 04/13/18 @ 12:25 by Angela Brown MD) History of laparoscopy History of herniorrhaphy - Family History Family History: Family History (Last Reviewed 04/13/18 @ 12:25 by Angela Brown MD) Mother Healthy adult Father Diabetes <Stanley Chatman - Last Filed: 04/13/18 15:44> Medications and Allergies Active Medications: Active Medications Sodium Chloride (Ns Inj) 1,000 mls @ 0 mls/hr IV.SIG BOLUS LEE Piperacillin/Tazobactam/Dextrose (Zosyn 4.5 Gm Premix) 4.5 gm in 100 mls @ 200 mls/hr IV.SIG Q6H LEE Last Admin: 04/13/18 12:38 Dose: 200 mls/hr Sodium Chloride (Ns Inj) 1,000 mls @ 100 mls/hr IV.CONT .Q10H LEE Last Admin: 04/13/18 12:38 Dose: 100 mls/hr Morphine Sulfate (Morphine Inj) 2 mg IV.PUSH Q3H PRN PRN Reason: PAIN 3-5; IF UABLE TO TAKE PO Morphine Sulfate (Morphine Inj) 4 mg IV.PUSH Q3H PRN PRN Reason: PAIN 6-10;IF UNABLE TO TAKE PO Last Admin: 04/13/18 11:00 Dose: 4 mg Morphine Sulfate (Morphine Inj) 4 mg IV.PUSH Q3H PRN PRN Reason: BREAKTHROUGH PAIN Naloxone HCl (Narcan Inj) 0.4 mg IV.PUSH UNSCH PRN PRN Reason: SEE LABEL COMMENTS Ondansetron HCl (Zofran Inj) 4 mg IV.PUSH Q6H PRN PRN Reason: NAUSEA OR VOMITING Last Admin: 04/13/18 12:35 Dose: 4 mg Oxycodone/Acetaminophen (Percocet 10/325 Mg) 1 tab PO Q6H PRN PRN Reason: PAIN SCALE 6 TO 10 Oxycodone/Acetaminophen (Percocet 5/325 Mg) 1 tab PO Q6H PRN PRN Reason: PAIN SCALE 3 TO 5 Sodium Chloride (Ns Flush) 2 ml IV.FLUSH PRN PRN PRN Reason: FLUSH AFTER USING IV ACCESS <Allyson Stewart M - Last Filed: 04/13/18 14:02> Active Medications: Active Medications Bisacodyl (Dulcolax Ec) 20 mg PO ONCE ONE Stop: 04/13/18 16:01 Sodium Chloride (Ns Inj) 1,000 mls @ 0 mls/hr IV.SIG BOLUS LEE Piperacillin/Tazobactam/Dextrose (Zosyn 4.5 Gm Premix) 4.5 gm in 100 mls @ 200 mls/hr IV.SIG Q6H [facility] Last Infusion: 04/13/18 13:22 Dose: Infused Sodium Chloride (Ns Inj) 1,000 mls @ 100 mls/hr IV.CONT .Q10H [facility] Last Admin: 04/13/18 12:38 Dose: 100 mls/hr Magnesium Citrate (Citroma Liq) 300 ml PO ONCE ONE Stop: 04/13/18 16:01 Magnesium Citrate (Citroma Liq) 300 ml PO ONCE ONE Stop: 04/13/18 18:01 Morphine Sulfate (Morphine Inj) 2 mg IV.PUSH Q3H PRN PRN Reason: PAIN 3-5; IF UABLE TO TAKE PO Morphine Sulfate (Morphine Inj) 4 mg IV.PUSH Q3H PRN PRN Reason: PAIN 6-10;IF UNABLE TO TAKE PO Last Admin: 04/13/18 11:00 Dose: 4 mg Morphine Sulfate (Morphine Inj) 4 mg IV.PUSH Q3H PRN PRN Reason: BREAKTHROUGH PAIN Naloxone HCl (Narcan Inj) 0.4 mg IV.PUSH UNSCH PRN PRN Reason: SEE LABEL COMMENTS Ondansetron HCl (Zofran Inj) 4 mg IV.PUSH Q6H PRN PRN Reason: NAUSEA OR VOMITING Last Admin: 04/13/18 12:35 Dose: 4 mg Oxycodone/Acetaminophen (Percocet 10/325 Mg) 1 tab PO Q6H PRN PRN Reason: PAIN SCALE 6 TO 10 Oxycodone/Acetaminophen (Percocet 5/325 Mg) 1 tab PO Q6H PRN PRN Reason: PAIN SCALE 3 TO 5 Sodium Chloride (Ns Flush) 2 ml IV.FLUSH PRN PRN PRN Reason: FLUSH AFTER USING IV ACCESS <Stanley Chatman - Last Filed: 04/13/18 15:44> Allergies Allergy/AdvReac Type Severity Reaction Status Date / Time clindamycin Allergy Severe RASH Verified 04/12/18 21:33 Sulfa (Sulfonamide Allergy Severe Rash Verified 04/12/18 21:33 Antibiotics) Exam Vital signs: Vital Signs 04/12/18 21:28 04/13/18 04:00 04/13/18 08:00 Temperature 98.1 F 98.4 F 98.3 F Pulse Rate 112 H 104 H 117 H Respiratory Rate 16 20 18 Blood Pressure 153/97 H 118/77 135/77 Pulse Oximetry 99 96 96 Intake & Output 04/12/18 04/13/18 04/13/18 18:59 06:59 18:59 Intake Total 1150 / 1150 1999 / 1999 Balance 1150 / 1150 1999 Weight 90.265 kg Intake: IV 1150 / 1150 1999 / 1999 NS Inj 1,000 ML @ 100 mls/hr IV 1000 / 1000 .CONT .Q10H LEE Rx#:[id number] LR 1000 mL Inj 1,000 ML @ Wide 1000 / 1000 Open IV.SIG BOLUS ONE Rx#: [id number] Zosyn 3.375 GM Premix 50 ML @ 50 / 50 100 mls/hr IV.SIG ONCE ONE Rx#: [id number] Zosyn 4.5 GM Premix 4.5 gm In 100 / 100 100 ml @ 200 mls/hr IV.SIG Q6H LEE Rx#:[id number] Oral 0 / 0 Other: # Voids 1 # Emeses 6 Weight On Admission 90.265 kg - Constitutional moderate distress, disheveled, cooperative - Routine HEENT Exam Head: Present: normocephalic ENT: Present: mucous membranes moist (Nausea and vomiting) - Routine Neck Exam Present: supple - Routine Respiratory Exam Present: accessory muscle use (No obvious shortness of breath) - Routine Cardiovascular Exam Present: S1, S2 (Borderline tachycardia) - Routine Abdominal Exam Present: soft, normoactive bowel sounds, distended (Right upper quadrant and mid abdomen mild swelling noted), guarding (Mild to moderate) <Allyson Stewart - Last Filed: 04/13/18 14:02> Vital signs: Vital Signs 04/12/18 21:28 04/13/18 04:00 04/13/18 08:00 Temperature 98.1 F 98.4 F 98.3 F Pulse Rate 112 H 104 H 117 H Respiratory Rate 16 20 18 Blood Pressure 153/97 H 118/77 135/77 Pulse Oximetry 99 96 96 Intake & Output 04/12/18 04/13/18 04/13/18 18:59 06:59 18:59 Intake Total 1150 / 1150 2100 / 2100 Balance 1150 / 1150 2100 / 2100 Weight 90.265 kg Intake: IV 1150 / 1150 2100 / 2100 NS Inj 1,000 ML @ 100 mls/hr IV 1000 / 1000 .CONT .Q10H LEE Rx#:[id number] LR 1000 mL Inj 1,000 ML @ Wide 1000 / 1000 Open IV.SIG BOLUS ONE Rx#: [id number] Zosyn 3.375 GM Premix 50 ML @ 50 / 50 100 mls/hr IV.SIG ONCE ONE Rx#: [id number] Zosyn 4.5 GM Premix 4.5 gm In 100 / 100 100 / 100 100 ml @ 200 mls/hr IV.SIG Q6H LEE Rx#:[id number] Oral 0 / 0 Other: # Voids 1 # Emeses 6 Weight On Admission 90.265 kg <Stanley Chatman - Last Filed: 04/13/18 15:44> Results - Labs CBC & Chem 7: 04/12/18 22:05 04/12/18 22:05 Labs: Laboratory Results - last 24 hr 04/12/18 04/12/18 04/12/18 22:05 22:05 22:05 WBC 7.6 RBC 5.70 Hgb 18.3 H Hct 50.7 MCV 89.1 MCH 32.1 MCHC 36.1 H RDW 13.2 Plt Count 167 D MPV 8.5 Prelim Diff (Auto) Slide review pending Neut % (Auto) 62.7 Lymph % (Auto) 28.0 Wayne % (Auto) 6.9 Eos % (Auto) 1.6 Baso % (Auto) 0.8 Neut # (Auto) 4.8 Lymph # (Auto) 2.1 Wayne # (Auto) 0.5 Eos # (Auto) 0.1 Baso # (Auto) 0.1 WBC Differential . Diff Scan Auto diff confirmed Differential Comment . Platelet Estimate Normal Platelet Morphology Normal RBC Morphology Normal PT 10.8 INR 1.1 APTT 26.2 Sodium 137 Potassium 3.5 Chloride 97 L Carbon Dioxide 26.5 Anion Gap 14 BUN 3 L Creatinine 1.00 Estimated GFR 88 L Random Glucose 110 H Lactic Acid Calcium 9.1 Total Bilirubin 1.5 H AST 212 H ALT 102 H Alkaline Phosphatase 150 H Total Protein 9.3 H Albumin 4.6 Lipase 198 Urine Color Urine Clarity Urine pH Ur Specific [place] Urine Protein Urine Glucose (UA) Urine Ketones Urine Occult Blood Urine Nitrate Urine Bilirubin Urine Urobilinogen Ur Leukocyte Esterase Urine RBC Hyaline Casts Urine Mucus Micro UA Comment Ur Microscopic Review Urine Culture Comments Hepatitis A IgM Ab Hep Bs Antigen Hep B Core IgM Ab Hep C IgG Ab 04/12/18 04/13/18 04/13/18 22:05 02:18 02:18 WBC RBC Hgb Hct MCV MCH MCHC RDW Plt Count MPV Prelim Diff (Auto) Neut % (Auto) Lymph % (Auto) Wayne % (Auto) Eos % (Auto) Baso % (Auto) Neut # (Auto) Lymph # (Auto) Wayne # (Auto) Eos # (Auto) Baso # (Auto) WBC Differential Diff Scan Differential Comment Platelet Estimate Platelet Morphology RBC Morphology PT INR APTT Sodium Potassium Chloride Carbon Dioxide Anion Gap BUN Creatinine Estimated GFR Random Glucose Lactic Acid 3.0 H 3.8 H Calcium Total Bilirubin AST ALT Alkaline Phosphatase Total Protein Albumin Lipase Urine Color Yellow Urine Clarity Clear Urine pH 6.0 Ur Specific [place] 1.003 Urine Protein Negative Urine Glucose (UA) Negative Urine Ketones Negative Urine Occult Blood Negative Urine Nitrate Negative Urine Bilirubin Negative Urine Urobilinogen Less than 2 Ur Leukocyte Esterase Negative Urine RBC Less than 1 Hyaline Casts 1 Urine Mucus Few H Micro UA Comment Culture not ind Ur Microscopic Review Not Reportable Urine Culture Comments Culture not ind Hepatitis A IgM Ab Hep Bs Antigen Hep B Core IgM Ab Hep C IgG Ab 04/13/18 02:18 WBC RBC Hgb Hct MCV MCH MCHC RDW Plt Count MPV Prelim Diff (Auto) Neut % (Auto) Lymph % (Auto) [place] % (Auto) Eos % (Auto) Baso % (Auto) Neut # (Auto) Lymph # (Auto) [place] # (Auto) Eos # (Auto) Baso # (Auto) WBC Differential Diff Scan Differential Comment Platelet Estimate Platelet Morphology RBC Morphology PT INR APTT Sodium Potassium Chloride Carbon Dioxide Anion Gap BUN Creatinine Estimated GFR Random Glucose Lactic Acid Calcium Total Bilirubin AST ALT Alkaline Phosphatase Total Protein Albumin Lipase Urine Color Urine Clarity Urine pH Ur Specific [place] Urine Protein Urine Glucose (UA) Urine Ketones Urine Occult Blood Urine Nitrate Urine Bilirubin Urine Urobilinogen Ur Leukocyte Esterase Urine RBC Hyaline Casts Urine Mucus Micro UA Comment Ur Microscopic Review Urine Culture Comments Hepatitis A IgM Ab Nonreactive Hep Bs Antigen Nonreactive Hep B Core IgM Ab Nonreactive Hep C IgG Ab Nonreactive - Imaging Impressions Abdomen/Pelvis CT 04/12/18 21:55 CONCLUSION: 1. Persistent inflammatory changes of and around the appendix. 2. Small bowel centered inflammatory changes are much milder in the interim but there is an elongated fluid collection in the central and right upper abdomen that I believe is extraluminal and of concern for abscess. 3. Enlarged and fatty infiltrated liver again noted. 4. Unchanged tiny nonobstructing stone of the left kidney. Chest X-Ray 04/12/18 21:55 CONCLUSION: No active disease. <Allyson Stewart - Last Filed: 04/13/18 14:02> - Labs CBC & Chem 7: 04/12/18 22:05 04/12/18 22:05 Labs: Laboratory Results - last 24 hr 04/12/18 04/12/18 04/12/18 22:05 22:05 22:05 WBC 7.6 RBC 5.70 Hgb 18.3 H Hct 50.7 MCV 89.1 MCH 32.1 MCHC 36.1 H RDW 13.2 Plt Count 167 D MPV 8.5 Prelim Diff (Auto) Slide review pending Neut % (Auto) 62.7 Lymph % (Auto) 28.0 Wayne % (Auto) 6.9 Eos % (Auto) 1.6 Baso % (Auto) 0.8 Neut # (Auto) 4.8 Lymph # (Auto) 2.1 Wayne # (Auto) 0.5 Eos # (Auto) 0.1 Baso # (Auto) 0.1 WBC Differential . Diff Scan Auto diff confirmed Differential Comment . Platelet Estimate Normal Platelet Morphology Normal RBC Morphology Normal PT 10.8 INR 1.1 APTT 26.2 Sodium 137 Potassium 3.5 Chloride 97 L Carbon Dioxide 26.5 Anion Gap 14 BUN 3 L Creatinine 1.00 Estimated GFR 88 L Random Glucose 110 H Lactic Acid Calcium 9.1 Total Bilirubin 1.5 H AST 212 H ALT 102 H Alkaline Phosphatase 150 H Total Protein 9.3 H Albumin 4.6 Lipase 198 Urine Color Urine Clarity Urine pH Ur Specific [place] Urine Protein Urine Glucose (UA) Urine Ketones Urine Occult Blood Urine Nitrate Urine Bilirubin Urine Urobilinogen Ur Leukocyte Esterase Urine RBC Hyaline Casts Urine Mucus Micro UA Comment Ur Microscopic Review Urine Culture Comments Hepatitis A IgM Ab Hep Bs Antigen Hep B Core IgM Ab Hep C IgG Ab 04/12/18 04/13/18 04/13/18 22:05 02:18 02:18 WBC RBC Hgb Hct MCV MCH MCHC RDW Plt Count MPV Prelim Diff (Auto) Neut % (Auto) Lymph % (Auto) [place] % (Auto) Eos % (Auto) Baso % (Auto) Neut # (Auto) Lymph # (Auto) [place] # (Auto) Eos # (Auto) Baso # (Auto) WBC Differential Diff Scan Differential Comment Platelet Estimate Platelet Morphology RBC Morphology PT INR APTT Sodium Potassium Chloride Carbon Dioxide Anion Gap BUN Creatinine Estimated GFR Random Glucose Lactic Acid 3.0 H 3.8 H Calcium Total Bilirubin AST ALT Alkaline Phosphatase Total Protein Albumin Lipase Urine Color Yellow Urine Clarity Clear Urine pH 6.0 Ur Specific [place] 1.003 Urine Protein Negative Urine Glucose (UA) Negative Urine Ketones Negative Urine Occult Blood Negative Urine Nitrate Negative Urine Bilirubin Negative Urine Urobilinogen Less than 2 Ur Leukocyte Esterase Negative Urine RBC Less than 1 Hyaline Casts 1 Urine Mucus Few H Micro UA Comment Culture not ind Ur Microscopic Review Not Reportable Urine Culture Comments Culture not ind Hepatitis A IgM Ab Hep Bs Antigen Hep B Core IgM Ab Hep C IgG Ab 04/13/18 02:18 WBC RBC Hgb Hct MCV MCH MCHC RDW Plt Count MPV Prelim Diff (Auto) Neut % (Auto) Lymph % (Auto) [place] % (Auto) Eos % (Auto) Baso % (Auto) Neut # (Auto) Lymph # (Auto) [place] # (Auto) Eos # (Auto) Baso # (Auto) WBC Differential Diff Scan Differential Comment Platelet Estimate Platelet Morphology RBC Morphology PT INR APTT Sodium Potassium Chloride Carbon Dioxide Anion Gap BUN Creatinine Estimated GFR Random Glucose Lactic Acid Calcium Total Bilirubin AST ALT Alkaline Phosphatase Total Protein Albumin Lipase Urine Color Urine Clarity Urine pH Ur Specific [place] Urine Protein Urine Glucose (UA) Urine Ketones Urine Occult Blood Urine Nitrate Urine Bilirubin Urine Urobilinogen Ur Leukocyte Esterase Urine RBC Hyaline Casts Urine Mucus Micro UA Comment Ur Microscopic Review Urine Culture Comments Hepatitis A IgM Ab Nonreactive Hep Bs Antigen Nonreactive Hep B Core IgM Ab Nonreactive Hep C IgG Ab Nonreactive - Imaging Impressions Abdomen/Pelvis CT 04/12/18 21:55 CONCLUSION: 1. Persistent inflammatory changes of and around the appendix. 2. Small bowel centered inflammatory changes are much milder in the interim but there is an elongated fluid collection in the central and right upper abdomen that I believe is extraluminal and of concern for abscess. 3. Enlarged and fatty infiltrated liver again noted. 4. Unchanged tiny nonobstructing stone of the left kidney. Chest X-Ray 04/12/18 21:55 CONCLUSION: No active disease. CT Consultation 04/13/18 00:00 CONCLUSION: 1. There are fairly diffuse inflammatory changes around the distal ileum and the appendix and the cecum there is a small amount of free fluid. There is no focal, defined drainable abscess collection. Please see above discussion. Liver Ultrasound 04/13/18 00:00 CONCLUSION: 1. The liver is prominent with findings characteristic of hepatic steatosis. 2. The gallbladder is at the upper limits of normal in size with no evidence of cholelithiasis. <Stanley Chatman - Last Filed: 04/13/18 15:44> Assessment and Plan - Plan 32-year-old male who came into the hospital on 04/12/2018 with uncontrolled diarrhea at least 3 times a day brown watery stools without any blood. Patient also had a 3-day history before this admission date of nausea and vomiting with dark bilious fluid. Patient now continues with some upper abdominal pain nausea and uncontrolled vomiting; no dyspepsia and no dysphasia. According to the record and patient he was recently in the hospital and discharged on 10 with suspected appendicitis and underwent diagnostic laparoscopy. Patient was sent home with a drain which was removed approximately 2 weeks ago but patient' s abdominal pain along with nausea and vomiting symptoms reappeared patient denies any fever or chills and has been unable to take a deep breath since the surgery. Gastroenterology also saw patient during this period of time because CT scan showed possible Crohn's disease. Patient did have elevated white count and normal hemoglobin at 15.3. Patient's enteritis and colitis noted on CT mostly involved the ileum, and possible fatty liver noted. Patient was to follow-up in the office but has not had a chance to secondary to his current symptoms. Patient initially denied any family history of colon cancer but does note now his grandfather just from rectal cancer. No previous EGD or colonoscopy. Patient did note EtOH consumption up until approximately 3 and half months ago, but last week patient did consume several alcoholic drinks which seemed to exacerbate his symptoms within 24 hours. Patient does note an NSAID usage with ibuprofen and steroids as a teen but none now. Gastroenterology was reconsulted to assist in his care. Lab work reviewed which now shows hemoglobin 18.3, WBC count 7.6, PT/INR 1.1, increased bilirubin 1.5, and transaminitis AST 212 and ALT 102 which was normal back on 03/16/2018. Over the last few days patient notes loose diarrhea stool usually once a day or every other day. Recent new diagnosis of possible Crohn's disease from CT scan. Ileal biopsy inconclusive during surgical procedure. No previous EGD or colonoscopy Recent diagnostic laparoscopic, patient went home with SAURAV surgical drain which was removed approximately 2 weeks ago, but now shows some symptoms of right upper quadrant and mid abdomen edema, distention. IR has been consulted to reinsert the the SAURAV drainage tube. Uncontrolled nausea and vomiting clear bilious fluids, continues through today patient's receiving Zofran for nausea Gastroenterology consult to consider colonoscopy while patient is in the hospital. Plan Diet clear liquids as tolerated Consent for EGD colonoscopy in a.m. Mag. Citrate X 2 slowly this pm, with Ducolax prep. If patient is vomiting, prep with soap suds enemas X 2, explained to patient Monitor labs PPI IV Further recommendations to follow once EGD colonoscopy completed Patient was seen per myself and Dr. Chatman, note was written on his behalf. <Allyson Stewart - Last Filed: 04/13/18 14:02> - Plan Patient was seen and examined, agree with above note, we will do upper endoscopy and colonoscopy for evaluation of possible Crohn disease <Stanley Chatman - Last Filed: 04/13/18 15:44>
--- NOTE | 2018-04-13 14:30 | US ---
EXAM DATE: 04/13/2018 2:24 PM EDT AGE/SEX: 32 years / Male INDICATIONS: Abdominal pain. CLINICAL DATA: This is the patient's subsequent encounter. Patient reports that signs and symptoms h ave been present for 2 days and indicates a pain score of 4/10. MEDICAL/SURGICAL HISTORY: . Abscess. None. PANC NOT WELL SEEN COMPARISON: [facility] – [place], CT ABDOMEN & PELVIS W CONTRAST, 04/12/2018. . MEASUREMENTS: Liver:__ 17.6 cm. Common Bile Duct:__ 4mm. Right Kidney:__ 11.0 x 6.0 x 5.8 cm. FINDINGS: Liver: The liver is prominent in size measuring up to 17.6 cm with diffuse increased echogenicity pili racteristic of hepatic steatosis. There is no focal mass or ductal dilatation. Portal Vein: Hepatopedal flow seen in portal vein. Common Duct: No intraluminal mass or stone visualized. Gallbladder: Demonstrates no wall thickening or pericholecystic fluid. No stones visualized. Pancreas: Not well visualized. Right Kidney: Normal echotexture and cortical thickness. No mass or hydronephrosis. Other: None. CONCLUSION: 1. The liver is prominent with findings characteristic of hepatic steatosis. 2. The gallbladder is at the upper limits of normal in size with no evidence of cholelithiasis. Electronically signed by: Silverio Rosa MD 04/13/2018 2:29 PM EDT
--- NOTE | 2018-04-13 14:44 | CT ---
EXAM DATE: 04/13/2018 2:32 PM EDT AGE/SEX: 32 years / Male INDICATIONS: Evaluate for right lower quadrant extraluminal fluid collection drainage. COMPARISON: [facility] – [place], CT ABDOMEN & PELVIS W CONTRAST, 04/12/2018. . FINDINGS: The patient's CT scan dated 04/12/[address] scan demonstrates inflammatory changes in volving the terminal ileum and surrounding the cecum. I do not see a focal drainable abscess. The patient's appendix is significantly dilated. This case was discussed with Dr. Dave. Patient has known Crohn's disease and underwent laparoscopic evaluation. The appendix was felt to be involved wi th the Crohn's disease at the time of the laparoscopy as such, it was not resected due to risk of fis shahrzad. CONCLUSION: 1. There are fairly diffuse inflammatory changes around the distal ileum and the appendix and the ce cum there is a small amount of free fluid. There is no focal, defined drainable abscess collection. P lisa see above discussion. Electronically signed by: Rj Schroeder MD 04/13/2018 2:43 PM EDT
[2018-04-13] MEDS ORDERED: Magnesium Citrate Liq 300 ML Bottle PO ONE ×2 (16:00→18:00)
[2018-04-14] MEDS: Sod Chloride 0.9% Inj 1,000 ML IV.CONT SCH ×3 (00:14→20:07)
[2018-04-14] MEDS: Piperacil/Tazo 4.5 GM Premix 4.5 GM/100 ML BAG IV.SIG SCH ×5 (00:31→23:53)
[2018-04-14 08:13] LABS: Baso % (Auto) 0.6 % (0.0-2.0); Hematocrit 42.6 % (39.0-51.0); Hemoglobin 15.2 gm/dL (13.0-17.0); Lymph # (Auto) 0.9 th/mm3 (1.0-4.8); Lymph % (Auto) 19.3 % (9.0-44.0); Mean Corpuscular HGB Conc 35.6 % (32.0-36.0); Mean Corpuscular Hemoglobin 32.3 pg (27.0-34.0); Mean Corpuscular Volume 90.7 fL (80.0-100.0); Mean Platelet Volume 8.7 fL (7.0-11.0); Mono # (Auto) 0.5 th/mm3 (0.0-0.9); Mono % (Auto) 11.8 % (0.0-8.0); Neut # (Auto) 3.1 th/mm3 (1.8-7.7); Neut % (Auto) 67.3 % (16.0-70.0); Platelet Count 100 th/mm3 (150-450); Red Cell Distribution Width 12.9 % (11.6-17.2); White Blood Count 4.6 th/mm3 (4.0-11.0)
[2018-04-14 08:44] LABS: Albumin 3.8 g/dL (3.4-5.0); Anion Gap 8 meq/L (5-15); Aspartate Aminotransferase 155 U/L (15-37); Blood Urea Nitrogen 3 mg/dL (7-18); Carbon Dioxide 31.1 meq/L (21.0-32.0); Chloride 100 meq/L (98-107); Glomerular Filtration Rate 84 mL/min (>89); Glucose,Random 95 mg/dL (74-106); Potassium 4.5 meq/L (3.5-5.1); Sodium 139 meq/L (136-145)
[2018-04-14 08:53] LABS: Alanine Aminotransferase 81 U/L (12-78); Alkaline Phosphatase 136 U/L (45-117); Total Protein 7.9 g/dL (6.4-8.2)
--- NOTE | 2018-04-14 09:03 | P.PN ---
Subjective Interval history: Follow-up for abdominal pain, nausea/vomiting, appendicitis. Patient reports overall feeling slightly better today. He denies any significant abdominal pain today. He denies any current nausea, but did have an episode of vomiting around 5 AM this morning. Denies fevers or chills. He states he just feels very fatigued which he believes is secondary to the antibiotics. He has completed his bowel prep with mag citrate, reports mostly clear liquid stools with minimal amount of brown stool. He tolerated clear liquid foods yesterday, now n.p.o. for EGD/colonoscopy. Denies any other medical complaints at this time. Physical Exam Vital signs: Vital Signs 04/13/18 16:00 04/13/18 20:00 04/13/18 23:57 Temperature 98.7 F 99.0 F 99.1 F Pulse Rate 98 H 77 80 Respiratory Rate 18 14 18 Blood Pressure 135/98 H 112/70 132/90 Pulse Oximetry 96 96 97 04/14/18 04:00 04/14/18 08:31 Temperature 98.9 F 98.7 F Pulse Rate 78 79 Respiratory Rate 18 20 Blood Pressure 119/81 138/88 Pulse Oximetry 96 96 Intake & Output 04/13/18 04/14/18 04/14/18 18:59 06:59 18:59 Intake Total 3040 / 3040 1100 / 1100 Output Total 1450 / 1450 Balance 1590 / 1590 1100 / 1100 Intake: IV 2200 / 2200 1100 / 1100 NS Inj 1,000 ML @ 100 mls/hr IV 1000 / 1000 1000 / 1000 .CONT .Q10H [facility] Rx#:[id number] LR 1000 mL Inj 1,000 ML @ Wide 1000 / 1000 Open IV.SIG BOLUS ONE Rx#: [id number] Zosyn 4.5 GM Premix 4.5 gm In 200 / 200 100 / 100 100 ml @ 200 mls/hr IV.SIG Q6H [facility] Rx#:[id number] Oral 840 / 840 Output: Urine 1450 / 1450 Other: # Voids 3 3 Narrative: GENERAL: Well-nourished, well-developed pleasant young male patient in [facility]. SKIN: Warm and dry. No rash. HEENT: Normocephalic. Atraumatic. Pupils equal and round. Mucous membranes pink and moist. CARDIOVASCULAR: Regular rate and rhythm. No murmur appreciated. RESPIRATORY: No accessory muscle use. Clear to auscultation. Breath sounds equal bilaterally. GASTROINTESTINAL: Abdomen soft, non-tender, nondistended. Normoactive bowel sounds x4. MUSCULOSKELETAL: No obvious deformities. Extremities without clubbing, cyanosis , or edema. NEUROLOGICAL: Awake and alert. No obvious cranial nerve deficits. Motor grossly within normal limits. Moving all extremities spontaneously. Normal speech. PSYCHIATRIC: Appropriate mood and affect; insight and judgment normal. Results - Labs CBC & Chem 7: 04/14/18 07:46 04/14/18 07:46 Laboratory Results - last 24 hr 04/14/18 04/14/18 04/14/18 07:46 07:46 07:46 WBC 4.6 RBC 4.70 Hgb 15.2 D Hct 42.6 MCV 90.7 MCH 32.3 MCHC 35.6 RDW 12.9 Plt Count 100 L D MPV 8.7 Neut % (Auto) 67.3 Lymph % (Auto) 19.3 Power % (Auto) 11.8 H Eos % (Auto) 1.0 Baso % (Auto) 0.6 Neut # (Auto) 3.1 Lymph # (Auto) 0.9 L Power # (Auto) 0.5 Eos # (Auto) 0.0 Baso # (Auto) 0.0 WBC Differential . Differential Comment Auto diff final Sodium 139 Potassium 4.5 D Chloride 100 Carbon Dioxide 31.1 Anion Gap 8 BUN 3 L Creatinine 1.04 Estimated GFR 84 L Random Glucose 95 Lactic Acid 0.8 Calcium 9.0 Total Bilirubin 1.9 H AST 155 H ALT 81 H Alkaline Phosphatase 136 H Total Protein 7.9 D Albumin 3.8 D Microbiology 04/12/18 22:05 Blood - Peripheral Aerobic Blood Culture - Preliminary No growth in 1 day 04/12/18 22:05 Blood - Peripheral Anaerobic Blood Culture - Preliminary No growth in 1 day 04/12/18 22:00 Blood - Peripheral Aerobic Blood Culture - Preliminary No growth in 1 day 04/12/18 22:00 Blood - Peripheral Anaerobic Blood Culture - Preliminary No growth in 1 day - Imaging Impressions CT Consultation 04/13/18 00:00 CONCLUSION: 1. There are fairly diffuse inflammatory changes around the distal ileum and the appendix and the cecum there is a small amount of free fluid. There is no focal, defined drainable abscess collection. Please see above discussion. Liver Ultrasound 04/13/18 00:00 CONCLUSION: 1. The liver is prominent with findings characteristic of hepatic steatosis. 2. The gallbladder is at the upper limits of normal in size with no evidence of cholelithiasis. Assessment and Plan - Plan 32-year-old male with recent admission at this facility 03/14 through 03/18 with right lower quadrant pain, suspected appendicitis, undergoing diagnostic laparoscopy with appearance of possible Crohn's disease, not appendicitis with ileal biopsy inconclusive. Peritoneal fluid positive for ESBL E. coli and beta strep for which infectious disease was consulted and patient was treated with levofloxacin and Flagyl to complete 14-day course. Patient was discharged with SAURAV drain in place, however this was removed by Dr. Dave 2 weeks ago. Patient presents now with a 3-day history of nausea and bilious vomiting, with now a 5- hour history of acute intermittent, sharp nonradiating right lower quadrant pain. Acute right lower quadrant abdominal abscess Suspected appendicitis. History of ESBL E. coli right lower quadrant abscess earlier this month Suspected sepsis. Tachycardia on admission, right lower quadrant abdominal abscess, elevated lactic acid. Afebrile -CT abdomen reviewed, shows persistent inflammatory change around the appendix. Fluid collection concerning for abscess -Continue on antibiotics with IV Zosyn -Blood cultures with NGTD -Consult infectious disease, appreciate recommendations -Consulted general surgery, requested GI evaluation as previous diagnostic laparoscopy concerning for Crohn's disease -Seen by GI, s/p EGD/colonoscopy 04/14, no evidence of Crohn's -General surgery now planning for appendectomy today Lactic acidosis: Lactic acid 3.0. -Likely secondary to infection -Thiamine given. -IVF hydration given -Repeat lactic acid 0.8, resolved. Alcoholic steatohepatitis/Transaminitis. -Patient with known history of steatohepatitis, advised not drink, however has been drinking. -Cessation counseling provided. -Liver ultrasound shows prominent liver with findings characteristic of hepatic steatosis; gallbladder is at the upper limits of normal in size with no evidence of cholelithiasis -hepatitis profile negative -outpatient f/up with GI DVT Prophylaxis: teds/SCDs; avoid chemical prophylaxis with upcoming procedure.
--- NOTE | 2018-04-14 10:14 | P.PCN ---
Date of procedure: 04/14/18 Procedure: THANK YOU FOR THE REFERRAL Indication; nausea, vomiting, abdominal pain Procedure Performed; upper endoscopy: With biopsy Colonoscopy: With biopsy After informing the patient about procedure and possible complications consent was signed. history and physical were updated. Patient was taken to the procedure room and placed in position. Time out was completed. Adequate sedation was performed by anesthesia provider. Upper Endoscopy, the scope was placed in the mouth advanced under video guide to the second portion of the duodenum, then the scope was withdrawal to the stomach and retro-flexion was performed, the scope was withdrawal to the esophagus then out of the mouth without any immediate complication Colonoscopy, rectal exam was performed the scope was placed in the rectum advanced under video guide to the cecum which was identified by ileo-cecal valve and appendiceal orifice, then the scope withdrawal slowly with examination of the mucosa to the rectum and retro-flexion was performed, the scope was withdrawal without any immediate complication Findings; colonoscopy, prep good Terminal ileum : Few nodularity most likely lymphoid tissue biopsy was done, no sign of Crohn disease, deep insertion of the terminal ileum up to about 15 cm was done Colon: Minimal erythema in the cecum biopsy was done very nonspecific otherwise normal colonoscopy Rectum: Normal Esophagus: Irregular Z line with mild esophagitis biopsy was done Stomach: Minimal gastritis biopsy to rule out H. pylori Duodenum: Normal I discuss the case with Dr. Kitchen, and he thinks this is appendicitis, also I discussed the case with Dr. Dave Recommendations; 1- Supportive care 2- ok to transfer to recovery area then discharge per protocol 3-n.p.o. until seen by surgery 4-Hemoccult on a yearly basis by primary care physician 5-colonoscopy as needed 6- EGD in 3 years if biopsies show Goode's 7-Protonix 40 mg daily 8-no alcohol
--- NOTE | 2018-04-14 10:16 | P.PNGI ---
Subjective Interval history: Patient feeling slightly better, no nausea, still having abdominal pain mostly in the right lower quadrant Physical Exam Vital signs: Vital Signs 04/13/18 16:00 04/13/18 20:00 04/13/18 23:57 Temperature 98.7 F 99.0 F 99.1 F Pulse Rate 98 H 77 80 Respiratory Rate 18 14 18 Blood Pressure 135/98 H 112/70 132/90 Pulse Oximetry 96 96 97 04/14/18 04:00 04/14/18 08:31 Temperature 98.9 F 98.7 F Pulse Rate 78 79 Respiratory Rate 18 20 Blood Pressure 119/81 138/88 Pulse Oximetry 96 96 Intake & Output 04/13/18 04/14/18 04/14/18 18:59 06:59 18:59 Intake Total 3040 / 3040 1100 / 1100 100 / 100 Output Total 1450 / 1450 Balance 1590 / 1590 1100 / 1100 100 / 100 Intake: IV 2200 / 2200 1100 / 1100 100 / 100 NS Inj 1,000 ML @ 100 mls/hr IV 1000 / 1000 1000 / 1000 .CONT .Q10H [facility] Rx#:[id number] LR 1000 mL Inj 1,000 ML @ Wide 1000 / 1000 Open IV.SIG BOLUS ONE Rx#: [id number] Zosyn 4.5 GM Premix 4.5 gm In 200 / 200 100 / 100 100 / 100 100 ml @ 200 mls/hr IV.SIG Q6H [facility] Rx#:[id number] Oral 840 / 840 Output: Urine 1450 / 1450 Other: # Voids 3 3 - Constitutional mild distress - Routine HEENT Exam Head: Present: normocephalic, atraumatic Eye: Present: EOMI, PERRL ENT: Present: mucous membranes moist - Routine Neck Exam Present: supple, full ROM - Routine Respiratory Exam Present: CTA bilaterally - Routine Cardiovascular Exam Present: RRR, S1, S2 - Routine Abdominal Exam Present: soft, normoactive bowel sounds, tenderness (In the right lower quadrant ) - Routine Extremities Exam Present: full ROM - Routine Skin Exam Present: intact, dry - Routine Neurological Exam Present: alert, oriented X3 - Routine Psychiatric Exam Present: normal affect Results - Labs CBC & Chem 7: 04/14/18 07:46 04/14/18 07:46 Laboratory Results - last 24 hr 04/14/18 04/14/1818 07:46 07:46 07:46 WBC 4.6 RBC 4.70 Hgb 15.2 D Hct 42.6 MCV 90.7 MCH 32.3 MCHC 35.6 RDW 12.9 Plt Count 100 L D MPV 8.7 Neut % (Auto) 67.3 Lymph % (Auto) 19.3 Allen % (Auto) 11.8 H Eos % (Auto) 1.0 Baso % (Auto) 0.6 Neut # (Auto) 3.1 Lymph # (Auto) 0.9 L Allen # (Auto) 0.5 Eos # (Auto) 0.0 Baso # (Auto) 0.0 WBC Differential . Differential Comment Auto diff final Sodium 139 Potassium 4.5 D Chloride 100 Carbon Dioxide 31.1 Anion Gap 8 BUN 3 L Creatinine 1.04 Estimated GFR 84 L Random Glucose 95 Lactic Acid 0.8 Calcium 9.0 Total Bilirubin 1.9 H AST 155 H ALT 81 H Alkaline Phosphatase 136 H Total Protein 7.9 D Albumin 3.8 D Microbiology 04/12/18 22:05 Blood - Peripheral Aerobic Blood Culture - Preliminary No growth in 1 day 04/12/18 22:05 Blood - Peripheral Anaerobic Blood Culture - Preliminary No growth in 1 day 04/12/18 22:00 Blood - Peripheral Aerobic Blood Culture - Preliminary No growth in 1 day 04/12/18 22:00 Blood - Peripheral Anaerobic Blood Culture - Preliminary No growth in 1 day - Imaging Impressions CT Consultation 04/13/18 00:00 CONCLUSION: 1. There are fairly diffuse inflammatory changes around the distal ileum and the appendix and the cecum there is a small amount of free fluid. There is no focal, defined drainable abscess collection. Please see above discussion. Liver Ultrasound 04/13/18 00:00 CONCLUSION: 1. The liver is prominent with findings characteristic of hepatic steatosis. 2. The gallbladder is at the upper limits of normal in size with no evidence of cholelithiasis. Assessment and Plan - Plan Patient was seen and examined, patient had upper endoscopy and colonoscopy today Patient also has elevated liver function test Findings; colonoscopy, prep good Terminal ileum : Few nodularity most likely lymphoid tissue biopsy was done, no sign of Crohn disease, deep insertion of the terminal ileum up to about 15 cm was done Colon: Minimal erythema in the cecum biopsy was done very nonspecific otherwise normal colonoscopy Rectum: Normal Esophagus: Irregular Z line with mild esophagitis biopsy was done Stomach: Minimal gastritis biopsy to rule out H. pylori Duodenum: Normal I discuss the case with Dr. Kitchen, and he thinks this is appendicitis, also I discussed the case with Dr. Dave Recommendations; 1- Supportive care 2- ok to transfer to recovery area then discharge per protocol 3-n.p.o. until seen by surgery 4-Hemoccult on a yearly basis by primary care physician 5-colonoscopy as needed 6- EGD in 3 years if biopsies show Goode's 7-Protonix 40 mg daily 8-no alcohol
--- NOTE | 2018-04-14 10:59 | P.PNID ---
Subjective Remarks: Patient is a 32-year-old male, who was initially hospitalized March 14 - March 18 and at that time he was complaining of significant abdominal pain. Imaging studies showed suggestion of appendicitis, and he underwent diagnostic laparoscopy. There was evidence of significant inflammation of the bowels and some purulent fluid in the bowel and this was sent for culture. Pathology report showed surface exudate. The diagnosis at that time is that he has some kind of inflammatory bowel disease such as Crohn's disease. Culture of the fluid grew ESBL positive organism and strep. Patient was discharged on antibiotics and he had a SAURAV drain as well. He completed the antibiotic and he was doing well and was seen in follow-up by the surgeon about 2 weeks ago and the drain was removed. Patient presented with 3-4-day history this time of nausea and vomiting. He also started having right-sided abdominal pain about 1 day prior to admission. Is also had some loose stools, but did not see any blood. Patient has not had any GI follow-up as an outpatient. He denies any fever chills or sweats. Denies any respiratory or any urinary complaints. On admission patient has not been febrile. His WBC is normal. CT of the abdomen and pelvis showing inflammatory process near the appendix and fluid in the periappendiceal region. Infectious disease consultation has been requested to assist with evaluation and treatment. Notes reviewed Temps [address] no abscess, inflammatory process R side Colonoscopy shows no evidence of Crohn's disease Still pain R side Antibiotics: Zosyn Lines: PIV Past Medical History: Fracture mandible H/O laparoscopy History of herniorrhaphy Allergies/Adverse Reactions: Allergies clindamycin Allergy (Severe, Verified 04/12/18 21:33) RASH Sulfa (Sulfonamide Antibiotics) Allergy (Severe, Verified 04/12/18 21:33) Rash Objective Vital Signs 04/13/18 16:00 04/13/18 20:00 04/13/18 23:57 Temperature 98.7 F 99.0 F 99.1 F Pulse Rate 98 H 77 80 Respiratory Rate 18 14 18 Blood Pressure 135/98 H 112/70 132/90 Pulse Oximetry 96 96 97 04/14/18 04:00 04/14/18 08:31 Temperature 98.9 F 98.7 F Pulse Rate 78 79 Respiratory Rate 18 20 Blood Pressure 119/81 138/88 Pulse Oximetry 96 96 Intake & Output 04/13/18 04/14/18 04/14/18 18:59 06:59 18:59 Intake Total 3040 / 3040 1100 / 1100 500 / 500 Output Total 1450 / 1450 Balance 1590 / 1590 1100 / 1100 500 / 500 Intake: IV 2200 / 2200 1100 / 1100 100 / 100 NS Inj 1,000 ML @ 100 mls/hr IV 1000 / 1000 1000 / 1000 .CONT .Q10H [facility] Rx#:[id number] LR 1000 mL Inj 1,000 ML @ Wide 1000 / 1000 Open IV.SIG BOLUS ONE Rx#: [id number] Zosyn 4.5 GM Premix 4.5 gm In 200 / 200 100 / 100 100 / 100 100 ml @ 200 mls/hr IV.SIG Q6H [facility] Rx#:[id number] Oral 840 / 840 Anesthesia Amount 400 / 400 Output: Urine 1450 / 1450 Other: # Voids 3 3 04/12/18 22:05 Blood - Peripheral Aerobic Blood Culture - Preliminary No growth in 1 day 04/12/18 22:05 Blood - Peripheral Anaerobic Blood Culture - Preliminary No growth in 1 day 04/12/18 22:00 Blood - Peripheral Aerobic Blood Culture - Preliminary No growth in 1 day 04/12/18 22:00 Blood - Peripheral Anaerobic Blood Culture - Preliminary No growth in 1 day Lab - Hematology Results 04/12/18 04/14/18 22:05 07:46 WBC 7.6 4.6 RBC 5.70 4.70 Hgb 18.3 H 15.2 D Hct 50.7 42.6 MCV 89.1 90.7 MCH 32.1 32.3 MCHC 36.1 H 35.6 RDW 13.2 12.9 Plt Count 167 D 100 L D MPV 8.5 8.7 Prelim Diff (Auto) Slide review pending Neut % (Auto) 62.7 67.3 Lymph % (Auto) 28.0 19.3 Ransom % (Auto) 6.9 11.8 H Eos % (Auto) 1.6 1.0 Baso % (Auto) 0.8 0.6 Neut # (Auto) 4.8 3.1 Lymph # (Auto) 2.1 0.9 L Ransom # (Auto) 0.5 0.5 Eos # (Auto) 0.1 0.0 Baso # (Auto) 0.1 0.0 WBC Differential . . Diff Scan Auto diff confirmed Differential Comment . Auto diff final Platelet Estimate Normal Platelet Morphology Normal RBC Morphology Normal Lab - Chemistry Results 04/12/18 04/12/18 04/13/18 22:05 22:05 02:18 Sodium 137 Potassium 3.5 Chloride 97 L Carbon Dioxide 26.5 Anion Gap 14 BUN 3 L Creatinine 1.00 Estimated GFR 88 L Random Glucose 110 H Lactic Acid 3.0 H 3.8 H Calcium 9.1 Total Bilirubin 1.5 H AST 212 H ALT 102 H Alkaline Phosphatase 150 H Total Protein 9.3 H Albumin 4.6 Lipase 198 04/14/18 04/14/18 07:46 07:46 Sodium 139 Potassium 4.5 D Chloride 100 Carbon Dioxide 31.1 Anion Gap 8 BUN 3 L Creatinine 1.04 Estimated GFR 84 L Random Glucose 95 Lactic Acid 0.8 Calcium 9.0 Total Bilirubin 1.9 H AST 155 H ALT 81 H Alkaline Phosphatase 136 H Total Protein 7.9 D Albumin 3.8 D Lipase Imaging: ITS Impressions Abdomen/Pelvis CT 04/12/18 21:55 CONCLUSION: 1. Persistent inflammatory changes of and around the appendix. 2. Small bowel centered inflammatory changes are much milder in the interim but there is an elongated fluid collection in the central and right upper abdomen that I believe is extraluminal and of concern for abscess. 3. Enlarged and fatty infiltrated liver again noted. 4. Unchanged tiny nonobstructing stone of the left kidney. Chest X-Ray 04/12/18 21:55 CONCLUSION: No active disease. CT Consultation 04/13/18 00:00 CONCLUSION: 1. There are fairly diffuse inflammatory changes around the distal ileum and the appendix and the cecum there is a small amount of free fluid. There is no focal, defined drainable abscess collection. Please see above discussion. Liver Ultrasound 04/13/18 00:00 CONCLUSION: 1. The liver is prominent with findings characteristic of hepatic steatosis. 2. The gallbladder is at the upper limits of normal in size with no evidence of cholelithiasis. Physical Exam: GENERAL: SKIN: Cool and dry. Has some acne lesions, pustules scattered in the back. HEAD: Atraumatic. Normocephalic. No temporal wasting, or tenderness. EYES: Santiago conjunctiva. No petechia or hemorrhage. Pupils equal, round and reactive to light. Extraocular movements full and intact. No scleral icterus. No injection or drainage. EARS, NOSE AND THROAT: Nose without bleeding or purulent nasal discharge. No sinus tenderness. Mucous membranes pink and moist. No oral lesions noted. Some white coating on his tongue NECK: Trachea midline. Supple and not tender, no meningeal signs CARDIOVASCULAR: Regular rate and rhythm. No murmurs, rubs or gallops heard RESPIRATORY: Clear to auscultation. Breath sounds equal bilaterally. No rales , wheezing or rhonchi ABDOMEN: Soft, nondistended. Healed incision on RLQ, mild tenderness R side of abdomen, no guarding or rebound. Bowel sounds present and normoactive. No guarding. No rebound. No organomegaly. EXTREMITIES: No clubbing, cyanosis, or edema. No joint effusion, has good ROM. No calf tenderness. Well perfused and warm. NEUROLOGICAL: Awake and alert. Cranial nerves grossly intact. Motor grossly within normal limits. PSYCHIATRIC: Normal affect, calm and cooperative. LINE: No evidence of infection Assessment and Plan - Plan Impression RLQ pain, with fluid collection and continued inflammatory changes in the abdomen, previously had diagnostic laparoscopy - no evidence of Crohn's colonoscopy -Previous culture of the exudate with ESBL positive organism and strep Possible appendicitis Recommendation Continue with IV Zosyn Follow culture General surgery following Monitor progress
--- NOTE | 2018-04-14 12:21 | P.DIET ---
Nutritional Evaluation Type of nutrition evaluation: initial Nutrition consult regarding: Diet Evaluation Nutrition screening: Weight Loss > 10 lbs Subjective Subjective Comments: Pt had 50% of lunch yesterday (04/13) before NPO. Objective - Diagnosis intrabdominal abcess, appendicitis - Objective Body Mass Index: 28.6 % IBW: 119 (IBW = 166lb) Body Weight Used for Calculations: Actual Energy Needs - Lower Range (kCal/kg): 25 Energy Needs - Upper Range (kCal/kg): 30 Lower Limit kCal/kg (kCals): 2,257 Upper Limit kCal/kg (kCals): 2,708 Lower Limit Protein Factor (Grams per Kg): 1.1 Upper Limit Protein Factor (Grams per Kg): 1.3 Lower Protein Needs (Protein): 99 Upper Protein Needs (Protein): 117 Fluid Factor (ml/kg): 30 Estimated Fluid Needs (ml): 2,708 Dietitian Reviewed in Medical Record: Current diet, Curent medications, Intake & Output, Labs, Medical history Diet Order: NPO Speech Therapy Recommendations: No Objective Comments: PMH: mandible fx, Hx herniorrhaphy, laparoscopy. Meds: morphine, narcan, zofran, percocet, zosyn Assessment Assessment: Pt currently at nutritional risk r/t reported unplanned wt loss and NPO status. Pt s/p EGD today (04/14) and currently NPO until seen by surgery. Will assess nutritional needs for a PO supplement when pt is able to consume a PO diet. Will monitor PO intake, wt, labs. Dietitian following. Recommendations: 1. Pt currently NPO until seen by surgery 2. Will assess nutritional needs for a PO supplement when pt is able to consume a PO diet 3. Will monitor PO intake, wt, labs 4. Dietitian following Dietitian to Monitor: Lab values, Intake & Output, Weight change, Diet advancement, Medical course
[2018-04-14] MEDS ORDERED: Bupivacaine/Epinephrine Inj 0.25% 50 ML Vial ONE (13:21)
[2018-04-14] MEDS ORDERED: Metoprolol Tartrate 25 MG Tablet PO ONE (13:22)
[2018-04-14] MEDS ORDERED: Chlorhexidine Gluconate 2% 1 Pack (2 Cloths) TOPICAL ONE (13:22)
[2018-04-14] MEDS ORDERED: Sodium Chlor 0.9% Inj 500 ML IV.SIG SCH (14:00)
[2018-04-14] MEDS ORDERED: fentaNYL Citrate Inj 100 MCG/2 ML Ampul ONE (15:53)
[2018-04-14] MEDS ORDERED: *Meperidine Inj 25 MG/ML Vial PERIprocedural Use ONLY ONE (15:53)
--- NOTE | 2018-04-14 15:53 | P.OP ---
- Preoperative Diagnosis (1) Appendicitis - Postoperative Diagnosis (1) Appendicitis Date of procedure: 04/14/18 Procedure: Diagnostic laparoscopy Laparoscopic appendectomy Anesthesia: DELORIS Surgeon: Silverio Dave MD Product Development Coordinator: Elizabeth Shrestha MS 3 Estimated blood loss (mL): 50 IV fluids (mL): 700 Pathology: other (Appendix to pathology) Operation and Findings: Patient was taken to the operating room and placed on the operating table in supine position. After an adequate level of general endotracheal anesthesia was achieved the abdomen was prepped and draped in the usual fashion. Time-out was taken, confirming the correct patient, site, and procedure to be performed. Skin and subcutaneous tissue was infiltrated with local anesthetic and incision made to the previous umbilical incision and carried down through the fascia. The peritoneal cavity was directly visualized. A 12 mm balloon trocar was inserted and the balloon inflated. The abdomen was insufflated. The patient was placed in Trendelenburg position. Two 5 mm trocars were placed in the patient's previous trocar sites after infiltrating both with local anesthetic. Both entered the abdominal cavity under direct vision uneventfully. Careful examination of the right lower quadrant revealed some filmy adhesions. These were taken down easily and following this the appendix was rotated up into the field. The mesoappendix was divided with the harmonic scalpel in a bloodless plane. Dissection was carried back to the base of the appendix. A 0 PDS Endoloop was slipped over the base of the appendix and cinched down. The appendix was divided 1 cm distal to this. The appendix was placed into an Endo Catch device and removed via the umbilical port while observing via the right lower quadrant 5 mm trocar site. Copious irrigation then ensued with exploration of the upper abdomen. Adhesions were noted to the anterior abdominal wall near the liver. Down in the pelvis there was some bloody drainage and this was irrigated and aspirated. The right lower quadrant was reexamined and all irrigation was aspirated. The small bowel, particularly the terminal ileum was reexamined and much of the inflammatory process that was seen 1 month earlier was no longer present. When this was completed, a Adelfo-Romeo drain was brought in via the suprapubic site and out via the right lower quadrant site. This was fixed to the skin with a 3-0 nylon suture. The drain was placed in the right gutter. Insufflation was then discontinued. No bleeding was noted from the trocar sites. The laparoscope and umbilical port were removed. The fascia was closed in the umbilicus with 0 Vicryl suture in both a simple interrupted and figure-of -eight fashion. Remaining local anesthetic was injected into the trocar sites. The umbilical port site and suprapubic site were closed at the skin with 4-0 Vicryl in an interrupted buried fashion. Steri-Strips were applied to these sites. A 4 x 4 was applied around the drain. The patient was extubated and taken back to the recovery room in stable condition. Sponge and needle counts were reported to be correct. The patient tolerated the procedure well.
[2018-04-14] MEDS ORDERED: *morphine SULFATE 4 MG/ML PERIprocedure ONLY ONE (16:10)
[2018-04-14] MEDS: Morphine Inj 4 MG/ML Vial IV.PUSH PRN (17:45)
[2018-04-14] MEDS: oxyCODONE/Acetaminophen 10/325 Tablet PO PRN (20:05)
[2018-04-15] MEDS: Morphine Inj 4 MG/ML Vial IV.PUSH PRN ×2 (01:10→15:16)
[2018-04-15] MEDS: Piperacil/Tazo 4.5 GM Premix 4.5 GM/100 ML BAG IV.SIG SCH ×2 (05:58→13:30)
[2018-04-15] MEDS: Sod Chloride 0.9% Inj 1,000 ML IV.CONT SCH ×2 (05:59→14:12)
[2018-04-15] MEDS: oxyCODONE/Acetaminophen 10/325 Tablet PO PRN ×2 (06:03→12:02)
[2018-04-15 08:59] LABS: Baso % (Auto) 0.2 % (0.0-2.0); Eos % (Auto) 0.2 % (0.0-4.0); Hematocrit 40.6 % (39.0-51.0); Hemoglobin 14.8 gm/dL (13.0-17.0); Lymph % (Auto) 15.6 % (9.0-44.0); Mean Corpuscular Hemoglobin 32.8 pg (27.0-34.0); Mean Platelet Volume 8.9 fL (7.0-11.0); Mono # (Auto) 0.7 th/mm3 (0.0-0.9); Mono % (Auto) 10.2 % (0.0-8.0); Neut # (Auto) 4.7 th/mm3 (1.8-7.7); Neut % (Auto) 73.8 % (16.0-70.0); Platelet Count 113 th/mm3 (150-450); Red Blood Count 4.52 mil/mm3 (4.50-5.90); White Blood Count 6.4 th/mm3 (4.0-11.0)
[2018-04-15 09:00] LABS: Mean Corpuscular HGB Conc 36.4 % (32.0-36.0)
[2018-04-15 09:22] LABS: Albumin 3.7 g/dL (3.4-5.0)
[2018-04-15 09:25] LABS: Total Protein 7.8 g/dL (6.4-8.2)
--- NOTE | 2018-04-15 09:36 | P.PNID ---
Subjective Remarks: Patient is a 32-year-old male, who was initially hospitalized March 14 - March 18 and at that time he was complaining of significant abdominal pain. Imaging studies showed suggestion of appendicitis, and he underwent diagnostic laparoscopy. There was evidence of significant inflammation of the bowels and some purulent fluid in the bowel and this was sent for culture. Pathology report showed surface exudate. The diagnosis at that time is that he has some kind of inflammatory bowel disease such as Crohn's disease. Culture of the fluid grew ESBL positive organism and strep. Patient was discharged on antibiotics and he had a SAURAV drain as well. He completed the antibiotic and he was doing well and was seen in follow-up by the surgeon about 2 weeks ago and the drain was removed. Patient presented with 3-4-day history this time of nausea and vomiting. He also started having right-sided abdominal pain about 1 day prior to admission. Is also had some loose stools, but did not see any blood. Patient has not had any GI follow-up as an outpatient. He denies any fever chills or sweats. Denies any respiratory or any urinary complaints. On admission patient has not been febrile. His WBC is normal. CT of the abdomen and pelvis showing inflammatory process near the appendix and fluid in the periappendiceal region. Infectious disease consultation has been requested to assist with evaluation and treatment. Notes reviewed Temps ok Had laparoscopic appendectomy yesterday Pain a little better No BM, no flatus Tolerating liquids Has SAURAV drain RLQ Antibiotics: Zosyn Lines: PIV Past Medical History: Fracture mandible H/O laparoscopy History of herniorrhaphy Allergies/Adverse Reactions: Allergies clindamycin Allergy (Severe, Verified 04/12/18 21:33) RASH Sulfa (Sulfonamide Antibiotics) Allergy (Severe, Verified 04/12/18 21:33) Rash Objective Vital Signs 04/14/18 12:19 04/14/18 15:38 04/14/18 15:45 Temperature 98.6 F 97.8 F Pulse Rate 87 106 H 106 H Respiratory Rate 20 20 18 Blood Pressure 141/90 H 135/95 H 136/84 Pulse Oximetry 96 92 L 92 L 04/14/18 16:00 04/14/18 16:15 04/14/18 16:25 Temperature 99.6 F Pulse Rate 89 85 86 Respiratory Rate 15 16 15 Blood Pressure 133/74 142/82 H 141/78 H Pulse Oximetry 92 L 93 L 93 L 04/14/18 17:38 04/14/18 19:51 04/15/18 00:00 Temperature 99.0 F 97.9 F 98.2 F Pulse Rate 84 81 67 Respiratory Rate 16 18 17 Blood Pressure 134/91 H 148/102 H 139/100 H Pulse Oximetry 94 L 94 L 97 04/15/18 04:00 04/15/18 08:01 Temperature 98.4 F 97.9 F Pulse Rate 82 73 Respiratory Rate 16 20 Blood Pressure 135/91 H 129/94 H Pulse Oximetry 95 99 Intake & Output 04/14/18 04/15/18 04/15/18 18:59 06:59 18:59 Intake Total 2840 / 2840 2172 / 2172 Output Total 70 / 70 1300 / 1300 Balance 2770 / 2770 872 / 872 Intake: IV 1200 / 1200 1252 / 1252 NS Inj 1,000 ML @ 100 mls/hr IV 1000 / 1000 952 / 952 .CONT .Q10H [facility] Rx#:[id number] Zosyn 4.5 GM Premix 4.5 gm In 200 / 200 300 / 300 100 ml @ 200 mls/hr IV.SIG Q6H [facility] Rx#:[id number] Oral 240 / 240 920 / 920 Anesthesia Amount 1400 / 1400 Output: Urine 1300 / 1300 Estimated Blood Loss 50 / 50 Wound Drainage # 1 Abdomen Other: # Voids 4 Date of Last Bowel Movement 04/14/18 04/14/18 # Bowel Movements 4 04/12/18 22:05 Blood - Peripheral Aerobic Blood Culture - Preliminary No growth in 2 days 04/12/18 22:05 Blood - Peripheral Anaerobic Blood Culture - Preliminary No growth in 2 days 04/12/18 22:00 Blood - Peripheral Aerobic Blood Culture - Preliminary No growth in 2 days 04/12/18 22:00 Blood - Peripheral Anaerobic Blood Culture - Preliminary No growth in 2 days Lab - Hematology Results 04/14/18 04/15/18 07:46 08:25 WBC 4.6 6.4 RBC 4.70 4.52 Hgb 15.2 D 14.8 Hct 42.6 40.6 MCV 90.7 90.0 MCH 32.3 32.8 MCHC 35.6 36.4 H RDW 12.9 13.0 Plt Count 100 L D 113 L MPV 8.7 8.9 Prelim Diff (Auto) Slide review pending Neut % (Auto) 67.3 73.8 H Lymph % (Auto) 19.3 15.6 [place] % (Auto) 11.8 H 10.2 H Eos % (Auto) 1.0 0.2 Baso % (Auto) 0.6 0.2 Neut # (Auto) 3.1 4.7 Lymph # (Auto) 0.9 L 1.0 [place] # (Auto) 0.5 0.7 Eos # (Auto) 0.0 0.0 Baso # (Auto) 0.0 0.0 WBC Differential . Differential Comment Auto diff final . Lab - Chemistry Results 04/14/18 04/14/18 04/15/18 07:46 07:46 08:25 Sodium 139 Potassium 4.5 D Chloride 100 Carbon Dioxide 31.1 Anion Gap 8 BUN 3 L Creatinine 1.04 Estimated GFR 84 L Random Glucose 95 Lactic Acid 0.8 Calcium 9.0 Total Bilirubin 1.9 H 2.2 H Direct Bilirubin 1.1 H Indirect Bilirubin 1.1 H AST 155 H 99 H ALT 81 H 72 Alkaline Phosphatase 136 H 115 Total Protein 7.9 D 7.8 Albumin 3.8 D 3.7 Imaging: ITS Impressions Abdomen/Pelvis CT 04/12/18 21:55 CONCLUSION: 1. Persistent inflammatory changes of and around the appendix. 2. Small bowel centered inflammatory changes are much milder in the interim but there is an elongated fluid collection in the central and right upper abdomen that I believe is extraluminal and of concern for abscess. 3. Enlarged and fatty infiltrated liver again noted. 4. Unchanged tiny nonobstructing stone of the left kidney. Chest X-Ray 04/12/18 21:55 CONCLUSION: No active disease. CT Consultation 04/13/18 00:00 CONCLUSION: 1. There are fairly diffuse inflammatory changes around the distal ileum and the appendix and the cecum there is a small amount of free fluid. There is no focal, defined drainable abscess collection. Please see above discussion. Liver Ultrasound 04/13/18 00:00 CONCLUSION: 1. The liver is prominent with findings characteristic of hepatic steatosis. 2. The gallbladder is at the upper limits of normal in size with no evidence of cholelithiasis. Physical Exam: GENERAL: SKIN: Cool and dry. Has some acne lesions, pustules scattered in the back. HEAD: Atraumatic. Normocephalic. No temporal wasting, or tenderness. EYES: [place] conjunctiva. No petechia or hemorrhage. No scleral icterus. No injection or drainage. EARS, NOSE AND THROAT: Nose without bleeding or purulent nasal discharge. No sinus tenderness. Mucous membranes pink and moist. No oral lesions noted. Some white coating on his tongue NECK: Trachea midline. Supple and not tender, no meningeal signs CARDIOVASCULAR: Regular rate and rhythm. No murmurs, rubs or gallops heard RESPIRATORY: Clear to auscultation. Breath sounds equal bilaterally. No rales , wheezing or rhonchi ABDOMEN: Soft, nondistended. SAURAV drain RLQ with bloody fluid. Has mild tenderness R side of abdomen. Bowel sounds hypoactive. No guarding. No rebound. No organomegaly. EXTREMITIES: No clubbing, cyanosis, or edema. No calf tenderness. NEUROLOGICAL: Non-focal PSYCHIATRIC: Normal affect, calm and cooperative. LINE: No evidence of infection Assessment and Plan - Plan Impression Appendicitis, status post laparoscopic appendectomy No evidence of Crohn's colonoscopy Recommendation Continue with IV Zosyn Monitor progress Levaquin/Flagyl x 7-10 days in D/C Explained plan to the patient
--- NOTE | 2018-04-15 10:06 | P.PN ---
Subjective Interval history: Follow-up for appendicitis, abdominal pain. The patient is status post appendectomy yesterday. He has a SAURAV drain in place, with continued bloody output. He states his abdominal pain is improving, however still very sore across the lower quadrants, worse at right lower quadrant. He denies any nausea or vomiting since 5 AM yesterday morning. He has not had a bowel movement since after his bowel prep yesterday prior to the procedure. He denies any fevers or chills. He is tolerating liquid intake. He has no other medical complaints at this time. Physical Exam Vital signs: Vital Signs 04/14/18 12:19 04/14/18 15:38 04/14/18 15:45 Temperature 98.6 F 97.8 F Pulse Rate 87 106 H 106 H Respiratory Rate 20 20 18 Blood Pressure 141/90 H 135/95 H 136/84 Pulse Oximetry 96 92 L 92 L 04/14/18 16:00 04/14/18 16:15 04/14/18 16:25 Temperature 99.6 F Pulse Rate 89 85 86 Respiratory Rate 15 16 15 Blood Pressure 133/74 142/82 H 141/78 H Pulse Oximetry 92 L 93 L 93 L 04/14/18 17:38 04/14/18 19:51 04/15/18 00:00 Temperature 99.0 F 97.9 F 98.2 F Pulse Rate 84 81 67 Respiratory Rate 16 18 17 Blood Pressure 134/91 H 148/102 H 139/100 H Pulse Oximetry 94 L 94 L 97 04/15/18 04:00 04/15/18 08:01 Temperature 98.4 F 97.9 F Pulse Rate 82 73 Respiratory Rate 16 20 Blood Pressure 135/91 H 129/94 H Pulse Oximetry 95 99 Intake & Output 04/14/18 04/15/18 04/15/18 18:59 06:59 18:59 Intake Total 2840 / 2840 2172 / 2172 Output Total 70 / 70 1300 / 1300 Balance 2770 / 2770 872 / 872 Intake: IV 1200 / 1200 1252 / 1252 NS Inj 1,000 ML @ 100 mls/hr IV 1000 / 1000 952 / 952 .CONT .Q10H [facility] Rx#:[id number] Zosyn 4.5 GM Premix 4.5 gm In 200 / 200 300 / 300 100 ml @ 200 mls/hr IV.SIG Q6H [facility] Rx#:[id number] Oral 240 / 240 920 / 920 Anesthesia Amount 1400 / 1400 Output: Urine 1300 / 1300 Estimated Blood Loss 50 / 50 Wound Drainage # 1 Abdomen Other: # Voids 4 Date of Last Bowel Movement 04/14/18 04/14/18 # Bowel Movements 4 Narrative: GENERAL: Well-nourished, well-developed pleasant young male patient in [facility]. SKIN: Warm and dry. No rash. HEENT: Normocephalic. Atraumatic. Pupils equal and round. Mucous membranes pink and moist. CARDIOVASCULAR: Regular rate and rhythm. No murmur appreciated. RESPIRATORY: No accessory muscle use. Clear to auscultation. Breath sounds equal bilaterally. GASTROINTESTINAL: Abdomen soft, nondistended, mildly tender over right lower quadrant. Normoactive bowel sounds x4. SAURAV drain in place at RLQ with bloody drainage. MUSCULOSKELETAL: No obvious deformities. Extremities without clubbing, cyanosis , or edema. NEUROLOGICAL: Awake and alert. No obvious cranial nerve deficits. Motor grossly within normal limits. Moving all extremities spontaneously. Normal speech. PSYCHIATRIC: Appropriate mood and affect; insight and judgment normal. Results - Labs CBC & Chem 7: 04/15/18 08:25 04/14/18 07:46 Laboratory Results - last 24 hr 04/15/18 04/15/18 08:25 08:25 WBC 6.4 RBC 4.52 Hgb 14.8 Hct 40.6 MCV 90.0 MCH 32.8 MCHC 36.4 H RDW 13.0 Plt Count 113 L MPV 8.9 Prelim Diff (Auto) Slide review pending Neut % (Auto) 73.8 H Lymph % (Auto) 15.6 [place] % (Auto) 10.2 H Eos % (Auto) 0.2 Baso % (Auto) 0.2 Neut # (Auto) 4.7 Lymph # (Auto) 1.0 [place] # (Auto) 0.7 Eos # (Auto) 0.0 Baso # (Auto) 0.0 WBC Differential . Diff Scan Auto diff confirmed Differential Comment . Total Bilirubin 2.2 H Direct Bilirubin 1.1 H Indirect Bilirubin 1.1 H AST 99 H ALT 72 Alkaline Phosphatase 115 Total Protein 7.8 Albumin 3.7 Microbiology 04/12/18 22:05 Blood - Peripheral Aerobic Blood Culture - Preliminary No growth in 2 days 04/12/18 22:05 Blood - Peripheral Anaerobic Blood Culture - Preliminary No growth in 2 days 04/12/18 22:00 Blood - Peripheral Aerobic Blood Culture - Preliminary No growth in 2 days 04/12/18 22:00 Blood - Peripheral Anaerobic Blood Culture - Preliminary No growth in 2 days - Imaging Abdomen/Pelvis CT 04/12/18 21:55 CONCLUSION: 1. Persistent inflammatory changes of and around the appendix. 2. Small bowel centered inflammatory changes are much milder in the interim but there is an elongated fluid collection in the central and right upper abdomen that I believe is extraluminal and of concern for abscess. 3. Enlarged and fatty infiltrated liver again noted. 4. Unchanged tiny nonobstructing stone of the left kidney. Chest X-Ray 04/12/18 21:55 CONCLUSION: No active disease. CT Consultation 04/13/18 00:00 CONCLUSION: 1. There are fairly diffuse inflammatory changes around the distal ileum and the appendix and the cecum there is a small amount of free fluid. There is no focal, defined drainable abscess collection. Please see above discussion. Liver Ultrasound 04/13/18 00:00 CONCLUSION: 1. The liver is prominent with findings characteristic of hepatic steatosis. 2. The gallbladder is at the upper limits of normal in size with no evidence of cholelithiasis. - Procedures 04/14/18 - Dr. Chatman - EGD/Colonoscopy: Esophagus: Irregular Z line with mild esophagitis biopsy was done Stomach: Minimal gastritis biopsy to rule out H. pylori Duodenum: Normal Terminal ileum : Few nodularity most likely lymphoid tissue biopsy was done, no sign of Crohn disease, deep insertion of the terminal ileum up to about 15 cm was done Colon: Minimal erythema in the cecum biopsy was done very nonspecific otherwise normal colonoscopy Rectum: Normal 04/14/18 - Dr. Dave - Diagnostic laparoscopy, Laparoscopic appendectomy Assessment and Plan - Plan 32-year-old male with recent admission at this facility 03/14 through 03/18 with right lower quadrant pain, suspected appendicitis, undergoing diagnostic laparoscopy with appearance of possible Crohn's disease, not appendicitis with ileal biopsy inconclusive. Peritoneal fluid positive for ESBL E. coli and beta strep for which infectious disease was consulted and patient was treated with levofloxacin and Flagyl to complete 14-day course. Patient was discharged with SAURAV drain in place, however this was removed by Dr. Dave 2 weeks ago. Patient presents now with a 3-day history of nausea and bilious vomiting, with now a 5- hour history of acute intermittent, sharp nonradiating right lower quadrant pain. Acute right lower quadrant abdominal abscess Suspected appendicitis. History of ESBL E. coli right lower quadrant abscess earlier this month Suspected sepsis. Tachycardia on admission, right lower quadrant abdominal abscess, elevated lactic acid. Afebrile -CT abdomen reviewed, shows persistent inflammatory change around the appendix. Fluid collection concerning for abscess -Continue on antibiotics with IV Zosyn -Blood cultures with NGTD -Consult infectious disease, appreciate recommendations -Consulted general surgery, requested GI evaluation as previous diagnostic laparoscopy concerning for Crohn's disease -Seen by GI, s/p EGD/colonoscopy 04/14, no evidence of Crohn's -S/p appendectomy 04/14, has SAURAV drain in place -diet advanced, symptoms improving -await GenSurg/GI clearance prior to discharge Lactic acidosis: Lactic acid 3.0. -Likely secondary to infection -Thiamine given. -IVF hydration given -Repeat lactic acid 0.8, resolved. Alcoholic steatohepatitis/Transaminitis. -Patient with known history of steatohepatitis, advised not drink, however has been drinking. -Cessation counseling provided. -Liver ultrasound shows prominent liver with findings characteristic of hepatic steatosis; gallbladder is at the upper limits of normal in size with no evidence of cholelithiasis -hepatitis profile negative -outpatient f/up with GI DVT Prophylaxis: teds/SCDs; avoid chemical prophylaxis recent procedure. Discharge Planning: Discharge when cleared by gen surg and tolerating oral intake.
--- NOTE | 2018-04-15 13:52 | P.PNGS ---
Subjective Interval history: Alert and awake Physical Exam Vital signs: Vital Signs 04/14/18 15:38 04/14/18 15:45 04/14/18 16:00 Temperature 97.8 F Pulse Rate 106 H 106 H 89 Respiratory Rate 20 18 15 Blood Pressure 135/95 H 136/84 133/74 Pulse Oximetry 92 L 92 L 92 L 04/14/18 16:15 04/14/18 16:25 04/14/18 17:38 Temperature 99.6 F 99.0 F Pulse Rate 85 86 84 Respiratory Rate 16 15 16 Blood Pressure 142/82 H 141/78 H 134/91 H Pulse Oximetry 93 L 93 L 94 L 04/14/18 19:51 04/15/18 00:00 04/15/18 04:00 Temperature 97.9 F 98.2 F 98.4 F Pulse Rate 81 67 82 Respiratory Rate 18 17 16 Blood Pressure 148/102 H 139/100 H 135/91 H Pulse Oximetry 94 L 97 95 04/15/18 08:01 04/15/18 11:50 Temperature 97.9 F 98.5 F Pulse Rate 73 69 Respiratory Rate 20 20 Blood Pressure 129/94 H 125/85 Pulse Oximetry 99 96 Intake & Output 04/14/18 04/15/18 04/15/18 18:59 06:59 18:59 Intake Total 2840 / 2840 2172 / 2172 Output Total 70 / 70 1300 / 1300 Balance 2770 / 2770 872 / 872 Intake: IV 1200 / 1200 1252 / 1252 NS Inj 1,000 ML @ 100 mls/hr IV 1000 / 1000 952 / 952 .CONT .Q10H [facility] Rx#:[id number] Zosyn 4.5 GM Premix 4.5 gm In 200 / 200 300 / 300 100 ml @ 200 mls/hr IV.SIG Q6H [facility] Rx#:[id number] Oral 240 / 240 920 / 920 Anesthesia Amount 1400 / 1400 Output: Urine 1300 / 1300 Estimated Blood Loss 50 / 50 Wound Drainage 20 / 20 # 1 Abdomen 20 / 20 Other: # Voids 4 Date of Last Bowel Movement 04/14/18 04/14/18 # Bowel Movements 4 Narrative: Alert and awake Abd: soft; minimally tender at incision sites; SAURAV in place Results - Labs 04/15/18 08:25 04/14/18 07:46 Laboratory Results - last 24 hr 04/15/18 04/15/18 08:25 08:25 WBC 6.4 RBC 4.52 Hgb 14.8 Hct 40.6 MCV 90.0 MCH 32.8 MCHC 36.4 H RDW 13.0 Plt Count 113 L MPV 8.9 Prelim Diff (Auto) Slide review pending Neut % (Auto) 73.8 H Lymph % (Auto) 15.6 [place] % (Auto) 10.2 H Eos % (Auto) 0.2 Baso % (Auto) 0.2 Neut # (Auto) 4.7 Lymph # (Auto) 1.0 [place] # (Auto) 0.7 Eos # (Auto) 0.0 Baso # (Auto) 0.0 WBC Differential . Diff Scan Auto diff confirmed Differential Comment . Total Bilirubin 2.2 H Direct Bilirubin 1.1 H Indirect Bilirubin 1.1 H AST 99 H ALT 72 Alkaline Phosphatase 115 Total Protein 7.8 Albumin 3.7 - Imaging Imaging: ITS Impressions Abdomen/Pelvis CT 04/12/18 21:55 CONCLUSION: 1. Persistent inflammatory changes of and around the appendix. 2. Small bowel centered inflammatory changes are much milder in the interim but there is an elongated fluid collection in the central and right upper abdomen that I believe is extraluminal and of concern for abscess. 3. Enlarged and fatty infiltrated liver again noted. 4. Unchanged tiny nonobstructing stone of the left kidney. Chest X-Ray 04/12/18 21:55 CONCLUSION: No active disease. CT Consultation 04/13/18 00:00 CONCLUSION: 1. There are fairly diffuse inflammatory changes around the distal ileum and the appendix and the cecum there is a small amount of free fluid. There is no focal, defined drainable abscess collection. Please see above discussion. Liver Ultrasound 04/13/18 00:00 CONCLUSION: 1. The liver is prominent with findings characteristic of hepatic steatosis. 2. The gallbladder is at the upper limits of normal in size with no evidence of cholelithiasis. Assessment and Plan - Assessment (1) Abdominal pain Code(s): R10.9 - Unspecified abdominal pain Status: Acute Plan: 32 year old male POD1 lap appy -Regular diet -Pain control -GS clear to DC; DC WITH SAURAV DRAIN -Continue antibiotics per ID -Follow up with Dr. Tenzin Goldsmith at 2:50PM Feeling better and tolerating PO's; steri-strips dry As above The exam, history, and the medical decision-making described in the above note were completed with the assistance of the mid-level provider. I reviewed and agree with the findings presented. I attest that I had a [id number] encounter with the patient on the same day, and personally performed and documented my assessment and findings in the medical record. (2) Crohn's disease of ileum Code(s): K50.00 - Crohn's disease of small intestine without complications Status: Acute (3) Abdominal abscess Status: Acute
--- NOTE | 2018-04-15 15:35 | P.DS ---
Date of admission: 04/13/18 00:24 Primary care physician: No Primary Care Physician Attending physician on discharge: Nick Jeffrey Anticipated date of discharge: 04/15/18 Brief History from admission: 32-year-old male with recent admission at this facility 03/14 through 03/18 with right lower quadrant pain, suspected appendicitis, undergoing diagnostic laparoscopy with appearance of possible Crohn's disease, not appendicitis with ileal biopsy inconclusive. Peritoneal fluid positive for ESBL E. coli and beta strep for which infectious disease was consulted and patient was treated with levofloxacin and Flagyl to complete 14-day course. Patient was discharged with SAURAV drain in place, however this was removed by Dr. Dave 2 weeks ago. Patient presents now with a 3-day history of nausea and bilious vomiting, with now a 5- hour history of acute intermittent, sharp nonradiating right lower quadrant pain. Patient reports chills but no fevers. Patient reports right-sided abdominal pain worse with a deep breath since the surgery. Patient also noted to have history of fatty liver likely secondary to alcohol and soda. Patient had been advised to stop alcohol. Patient reports drinking several drinks 2 days ago as well as a shot of liquor on 04/12. Patient update on day of discharge: Patient is tolerating oral intake. Cleared for discharge by general surgery. Pain is controlled with pain meds. Denies nausea/vomiting. Denies any other medical complaints. DS: Diagnosis - Discharge Diagnosis (1) Appendicitis Status: Acute (2) Enteritis Status: Acute (3) Abdominal pain Status: Acute DS: Medications - Discharge Medications Prescriptions: hydrocodone-acetaminophen 1 tab PO Q4H PRN #15 tab PRN Reason: acute post op pain exception Lactobacillus acidoph-L.bulgar [Lactinex] 1 tab PO BID 10 Days #20 tab levofloxacin 500 mg PO DAILY 10 Days #10 tab metronidazole [Flagyl] 500 mg PO TID 10 Days #30 tab DS: Summary Hospital Course: 32-year-old male with recent admission at this facility 03/14 through 03/18 with right lower quadrant pain, suspected appendicitis, undergoing diagnostic laparoscopy with appearance of possible Crohn's disease, not appendicitis with ileal biopsy inconclusive. Peritoneal fluid positive for ESBL E. coli and beta strep for which infectious disease was consulted and patient was treated with levofloxacin and Flagyl to complete 14-day course. Patient was discharged with SAURAV drain in place, however this was removed by Dr. Dave 2 weeks ago. Patient presents now with a 3-day history of nausea and bilious vomiting, with now a 5- hour history of acute intermittent, sharp nonradiating right lower quadrant pain. Acute right lower quadrant abdominal abscess, suspected appendicitis. Patient has history of ESBL E. coli right lower quadrant abscess earlier this month. Suspected sepsis. Tachycardia on admission, right lower quadrant abdominal abscess, elevated lactic acid. Afebrile throughout admission. CT abdomen reviewed, shows persistent inflammatory change around the appendix. Fluid collection concerning for abscess. Continued on antibiotics with IV Zosyn. Blood cultures with NGTD. Consulted general surgery, requested GI evaluation as previous diagnostic laparoscopy concerning for Crohn's disease. Seen by GI, s/p EGD/colonoscopy 04/14, no evidence of Crohn's. S/p appendectomy 04/14, SAURAV drain placed. Diet advanced, symptoms improving, tolerating oral intake. Consult infectious disease, recommended to continue Zosyn during hospitalization, and d/ c on Levaquin/Flagyl x7-10days. Cleared for discharge by general surgery, recommended to continue SAURAV drain at discharge, and established follow up appointment with Dr. Dave on Thursday 04/19. Lactic acidosis: Lactic acid 3.0. Likely secondary to infection above. IVF hydration given. Repeat lactic acid 0.8, resolved. Alcoholic steatohepatitis/Transaminitis. Patient with known history of steatohepatitis, advised not drink, however has been drinking. Cessation counseling provided. Liver ultrasound shows prominent liver with findings characteristic of hepatic steatosis; gallbladder is at the upper limits of normal in size with no evidence of cholelithiasis. Hepatitis profile negative. Outpatient f/up with GI. [employer] Prescription Drug Monitoring Database has been queried and verified prior to prescribing the controlled subsection. Patient is having significant pain caused by abdominal surgery which will last more than 3 days. Trial of alternative treatment options other than prescribed opioids has not helped. - Time Spent with Patient Total time spent providing and/or coordinating discharge services: Greater than 30 minutes - Quality: VTE Deep Vein Thrombosis/Pulmonary Embolism Present on Admission: No Exam Vital signs: Vital Signs 04/14/18 15:38 04/14/18 15:45 04/14/18 16:00 Temperature 97.8 F Pulse Rate 106 H 106 H 89 Respiratory Rate 20 18 15 Blood Pressure 135/95 H 136/84 133/74 Pulse Oximetry 92 L 92 L 92 L 04/14/18 16:15 04/14/18 16:25 04/14/18 17:38 Temperature 99.6 F 99.0 F Pulse Rate 85 86 84 Respiratory Rate 16 15 16 Blood Pressure 142/82 H 141/78 H 134/91 H Pulse Oximetry 93 L 93 L 94 L 04/14/18 19:51 04/15/18 00:00 04/15/18 04:00 Temperature 97.9 F 98.2 F 98.4 F Pulse Rate 81 67 82 Respiratory Rate 18 17 16 Blood Pressure 148/102 H 139/100 H 135/91 H Pulse Oximetry 94 L 97 95 04/15/18 08:01 04/15/18 11:50 Temperature 97.9 F 98.5 F Pulse Rate 73 69 Respiratory Rate 20 20 Blood Pressure 129/94 H 125/85 Pulse Oximetry 99 96 Intake & Output 04/14/18 04/15/18 04/15/18 18:59 06:59 18:59 Intake Total 2840 / 2840 2172 / 2172 100 / 100 Output Total 70 / 70 1300 / 1300 Balance 2770 / 2770 872 / 872 100 / 100 Intake: IV 1200 / 1200 1252 / 1252 100 / 100 NS Inj 1,000 ML @ 100 mls/hr IV 1000 / 1000 952 / 952 .CONT .Q10H LEE Rx#:[id number] Zosyn 4.5 GM Premix 4.5 gm In 200 / 200 300 / 300 100 / 100 100 ml @ 200 mls/hr IV.SIG Q6H LEE Rx#:[id number] Oral 240 / 240 920 / 920 Anesthesia Amount 1400 / 1400 Output: Urine 1300 / 1300 Estimated Blood Loss 50 / 50 Wound Drainage 20 / 20 # 1 Abdomen 20 / 20 Other: # Voids 4 3 Date of Last Bowel Movement 04/14/18 04/14/18 # Bowel Movements 4 Narrative: GENERAL: Well-nourished, well-developed pleasant young male patient in [facility]. SKIN: Warm and dry. No rash. HEENT: Normocephalic. Atraumatic. Pupils equal and round. Mucous membranes pink and moist. CARDIOVASCULAR: Regular rate and rhythm. No murmur appreciated. RESPIRATORY: No accessory muscle use. Clear to auscultation. Breath sounds equal bilaterally. GASTROINTESTINAL: Abdomen soft, nondistended, mildly tender over right lower quadrant. Normoactive bowel sounds x4. SAURAV drain in place at RLQ with small amount of bloody drainage. MUSCULOSKELETAL: No obvious deformities. Extremities without clubbing, cyanosis , or edema. NEUROLOGICAL: Awake and alert. No obvious cranial nerve deficits. Motor grossly within normal limits. Moving all extremities spontaneously. Normal speech. PSYCHIATRIC: Appropriate mood and affect; insight and judgment normal. Results Procedures completed during hospitalization: 04/14/18 - Dr. Chatman - EGD/Colonoscopy: Esophagus: Irregular Z line with mild esophagitis biopsy was done Stomach: Minimal gastritis biopsy to rule out H. pylori Duodenum: Normal Terminal ileum : Few nodularity most likely lymphoid tissue biopsy was done, no sign of Crohn disease, deep insertion of the terminal ileum up to about 15 cm was done Colon: Minimal erythema in the cecum biopsy was done very nonspecific otherwise normal colonoscopy Rectum: Normal 04/14/18 - Dr. Dave - Diagnostic laparoscopy, Laparoscopic appendectomy Pending studies at discharge: Pending at discharge 04/14/18 16:44 Surgical [PTH] Routine Labs on day of discharge: Labs from last 24 hours 04/15/18 04/15/18 08:25 08:25 WBC 6.4 RBC 4.52 Hgb 14.8 Hct 40.6 MCV 90.0 MCH 32.8 MCHC 36.4 H RDW 13.0 Plt Count 113 L MPV 8.9 Prelim Diff (Auto) Slide review pending Neut % (Auto) 73.8 H Lymph % (Auto) 15.6 [place] % (Auto) 10.2 H Eos % (Auto) 0.2 Baso % (Auto) 0.2 Neut # (Auto) 4.7 Lymph # (Auto) 1.0 [place] # (Auto) 0.7 Eos # (Auto) 0.0 Baso # (Auto) 0.0 WBC Differential . Diff Scan Auto diff confirmed Differential Comment . Total Bilirubin 2.2 H Direct Bilirubin 1.1 H Indirect Bilirubin 1.1 H AST 99 H ALT 72 Alkaline Phosphatase 115 Total Protein 7.8 Albumin 3.7 Preliminary micro results at discharge 04/12/18 22:05 Aerobic Blood Culture - Preliminary Blood - Peripheral No growth in 3 days Anaerobic Blood Culture - Preliminary No growth in 3 days 04/12/18 22:00 Aerobic Blood Culture - Preliminary Blood - Peripheral No growth in 3 days Anaerobic Blood Culture - Preliminary No growth in 3 days - Impressions ITS Impressions Abdomen/Pelvis CT 04/12/18 21:55 CONCLUSION: 1. Persistent inflammatory changes of and around the appendix. 2. Small bowel centered inflammatory changes are much milder in the interim but there is an elongated fluid collection in the central and right upper abdomen that I believe is extraluminal and of concern for abscess. 3. Enlarged and fatty infiltrated liver again noted. 4. Unchanged tiny nonobstructing stone of the left kidney. Chest X-Ray 04/12/18 21:55 CONCLUSION: No active disease. CT Consultation 04/13/18 00:00 CONCLUSION: 1. There are fairly diffuse inflammatory changes around the distal ileum and the appendix and the cecum there is a small amount of free fluid. There is no focal, defined drainable abscess collection. Please see above discussion. Liver Ultrasound 04/13/18 00:00 CONCLUSION: 1. The liver is prominent with findings characteristic of hepatic steatosis. 2. The gallbladder is at the upper limits of normal in size with no evidence of cholelithiasis. Discharge Plan - Discharge Disposition Patient Disposition: 01 Discharge Home - Discharge Condition Condition: Stable - Discharge Order Discharge Orders: Discharge Order (Routine); Ordered 04/15/18 Ordered By: Geeta Porras - Discharge Details Anticipated Discharge Date: 04/15/18 Discharge Comment: Discharge if tolerating oral intake. Leave SAURAV drain in place. - Physicians Team Primary Care Provider: Primary Care Toya Harris Attending Provider: Nick Jeffrey Other Providers: Komal Andrade MD ; [facility] ; Stanley Chatman MD ; Thomas Hernandez MD ; Angela Brown MD
--- NOTE | 2018-04-15 15:37 | P.PNGI ---
Subjective Interval history: Patient laying comfortably in bed getting ready to be discharged Physical Exam Vital signs: Vital Signs 04/14/18 15:38 04/14/18 15:45 04/14/18 16:00 Temperature 97.8 F Pulse Rate 106 H 106 H 89 Respiratory Rate 20 18 15 Blood Pressure 135/95 H 136/84 133/74 Pulse Oximetry 92 L 92 L 92 L 04/14/18 16:15 04/14/18 16:25 04/14/18 17:38 Temperature 99.6 F 99.0 F Pulse Rate 85 86 84 Respiratory Rate 16 15 16 Blood Pressure 142/82 H 141/78 H 134/91 H Pulse Oximetry 93 L 93 L 94 L 04/14/18 19:51 04/15/18 00:00 04/15/18 04:00 Temperature 97.9 F 98.2 F 98.4 F Pulse Rate 81 67 82 Respiratory Rate 18 17 16 Blood Pressure 148/102 H 139/100 H 135/91 H Pulse Oximetry 94 L 97 95 04/15/18 08:01 04/15/18 11:50 Temperature 97.9 F 98.5 F Pulse Rate 73 69 Respiratory Rate 20 20 Blood Pressure 129/94 H 125/85 Pulse Oximetry 99 96 Intake & Output 04/14/18 04/15/18 04/15/18 18:59 06:59 18:59 Intake Total 2840 / 2840 2172 / 2172 100 / 100 Output Total 70 / 70 1300 / 1300 Balance 2770 / 2770 872 / 872 100 / 100 Intake: IV 1200 / 1200 1252 / 1252 100 / 100 NS Inj 1,000 ML @ 100 mls/hr IV 1000 / 1000 952 / 952 .CONT .Q10H LEE Rx#:[id number] Zosyn 4.5 GM Premix 4.5 gm In 200 / 200 300 / 300 100 / 100 100 ml @ 200 mls/hr IV.SIG Q6H LEE Rx#:[id number] Oral 240 / 240 920 / 920 Anesthesia Amount 1400 / 1400 Output: Urine 1300 / 1300 Estimated Blood Loss 50 / 50 Wound Drainage 20 / 20 # 1 Abdomen 20 / 20 Other: # Voids 4 3 Date of Last Bowel Movement 04/14/18 04/14/18 # Bowel Movements 4 - Constitutional no acute distress - Routine HEENT Exam Head: Present: normocephalic Eye: Present: EOMI - Routine Neck Exam Present: supple - Routine Respiratory Exam Present: CTA bilaterally - Routine Cardiovascular Exam Present: RRR - Routine Abdominal Exam Present: soft, normoactive bowel sounds, tenderness. Absent: distended, rebound - Routine Extremities Exam Absent: cyanosis, clubbing, edema Results - Labs CBC & Chem 7: 04/15/18 08:25 04/14/18 07:46 Laboratory Results - last 24 hr 04/15/18 04/15/18 08:25 08:25 WBC 6.4 RBC 4.52 Hgb 14.8 Hct 40.6 MCV 90.0 MCH 32.8 MCHC 36.4 H RDW 13.0 Plt Count 113 L MPV 8.9 Prelim Diff (Auto) Slide review pending Neut % (Auto) 73.8 H Lymph % (Auto) 15.6 [place] % (Auto) 10.2 H Eos % (Auto) 0.2 Baso % (Auto) 0.2 Neut # (Auto) 4.7 Lymph # (Auto) 1.0 [place] # (Auto) 0.7 Eos # (Auto) 0.0 Baso # (Auto) 0.0 WBC Differential . Diff Scan Auto diff confirmed Differential Comment . Total Bilirubin 2.2 H Direct Bilirubin 1.1 H Indirect Bilirubin 1.1 H AST 99 H ALT 72 Alkaline Phosphatase 115 Total Protein 7.8 Albumin 3.7 Microbiology 04/12/18 22:05 Blood - Peripheral Aerobic Blood Culture - Preliminary No growth in 3 days 04/12/18 22:05 Blood - Peripheral Anaerobic Blood Culture - Preliminary No growth in 3 days 04/12/18 22:00 Blood - Peripheral Aerobic Blood Culture - Preliminary No growth in 3 days 04/12/18 22:00 Blood - Peripheral Anaerobic Blood Culture - Preliminary No growth in 3 days - Procedures 04/14/18 - Dr. Chatman - EGD/Colonoscopy: Esophagus: Irregular Z line with mild esophagitis biopsy was done Stomach: Minimal gastritis biopsy to rule out H. pylori Duodenum: Normal Terminal ileum : Few nodularity most likely lymphoid tissue biopsy was done, no sign of Crohn disease, deep insertion of the terminal ileum up to about 15 cm was done Colon: Minimal erythema in the cecum biopsy was done very nonspecific otherwise normal colonoscopy Rectum: Normal 04/14/18 - Dr. Dave - Diagnostic laparoscopy, Laparoscopic appendectomy Assessment and Plan - Plan Abdominal pain, diarrhea, nausea and vomiting, Status post EGD and colonoscopy patient was found to have gastritis and some mild nodularity at the terminal ileum but no evidence of Crohn's Status post appendectomy with noted appendicitis from the surgical report At this point not much to add from a GI perspective Patient advised to follow-up post discharge We will sign off
== END 2018-04-15 17:36 | disposition home or self-care (01) ==
LOC: NEPC 21:25 → NEDA 04-13 00:24 → NEPHCDU 04-13 02:30 → N07 04-14 12:48 → NEPHCDU 04-14 17:18
PROVIDERS: ADMIT Hospitalist; ATTEND Hospitalist
PROC: COLONOS (2018-04-14 09:30)
PROC: PANENDO (2018-04-14 09:30)
PROC: LAPAPPY (ICD-10-PCS; 2018-04-14 14:17)